=== PATIENT | male | born 1965 | race Caucasian/White ===

== ENCOUNTER 2020-04-06 12:56 | Emergency (ER) | payer OTHER ==
[~2020-04-06] VITALS: Ht 172.7 cm; Wt 108.9 kg
[~2020-04-06 12:56] MED LIST: BUME1TAB8 PO; SPIR25TA6 PO
[2020-04-06 13:05] VITALS: BP 121/70
--- NOTE | 2020-04-06 15:25 | NUR ---
SEEN AND EXAMINED BY .
--- NOTE | 2020-04-06 16:09 | NUR ---
Patient discharged to home in stable condition. Written and verbal after care instructions given. Patient verbalizes understanding of instruction.
== END 2020-04-06 16:10 | disposition home or self-care (01) ==
LOC: ER 12:59
DX: N48.89 Other specified disorders of penis (principal); G89.29 Other chronic pain; I10 Essential (primary) hypertension; E11.9 Type 2 diabetes mellitus without complications; I25.10 Atherosclerotic heart disease of native coronary artery without angina pectoris; Z86.19 Personal history of other infectious and parasitic diseases; Z98.890 Other specified postprocedural states; Z79.899 Other long term (current) drug therapy

== ENCOUNTER 2020-11-20 13:35 | Inpatient (IN) | payer OTHER ==
[~2020-11-20] VITALS: Ht 170.2 cm; Wt 98.4 kg
--- NOTE | 2020-11-20 13:45 | NUR ---
TO ER BED 3, C/O RU ABD PAIN, PER RA STARTED SINCE JULY BUT WORSE YESTERDAY, AWAITING MD VILLATORO.
--- NOTE | 2020-11-20 13:46 | NUR ---
TRIED PUTTING IV BUT UNSUCCESSFUL, CALLED FOR MIDLINE
--- NOTE | 2020-11-20 13:50 | NUR ---
UNABLE TO GIVE URINE AT THIS TIME
--- NOTE | 2020-11-20 13:50 | NUR ---
REFUSED BLOOD DRAW FROM LAB
[2020-11-20] MEDS ORDERED: MORPHINE SULFATE INJ 4 MG/ML DISP.SYRIN ONE (15:27)
[2020-11-20] MEDS ORDERED: ONDANSETRON HCL/PF 4 MG/2 ML VIAL ONE (15:27)
[2020-11-20] MEDS ORDERED: MORPHINE SULFATE INJ 2 MG/ML DISP.SYRIN IV ONE (15:30)
[2020-11-20] MEDS ORDERED: ONDANSETRON HCL/PF 4 MG/2 ML VIAL IVP ONE (15:30)
--- NOTE | 2020-11-20 16:07 | NUR ---
CALLED LAB SPOKE TO NATALIA TO SHANK MAKER BLOOD
--- NOTE | 2020-11-20 16:19 | NUR ---
PATIENT TRANSPORTED FOR CT ABD VIA GURNEY, PATIENT REMAINS IN STABLE CONDITION AT THIS TIME.
--- NOTE | 2020-11-20 16:20 | NUR ---
Akbar patel in [facility] - 11/20/20 at [address]
[2020-11-20 16:33] LABS: BASOPHILS # (AUTO) 0.1 K/uL (0.0-0.2); BASOPHILS % (AUTO) 0.3 % (0.0-2.0); CALCIUM, SERUM 8.7 mg/dL (8.5-10.1); CREATININE 1.1 mg/dL (0.6-1.3); EOSINOPHILS % (AUTO) 0.1 % (0.0-6.0); HEMATOCRIT 27 % (39-51); HEMOGLOBIN 9.2 g/dL (13.5-17.5); LYMPHOCYTES % (AUTO) 4.3 % (20.0-44.0); MEAN CORPUSCULAR HGB CONC 35 g/dl (31.0-36.0); MEAN CORPUSCULAR VOLUME 113 fL (80-96); MONOCYTES % (AUTO) 12.8 % (2.0-12.0); NEUTROPHILS # (AUTO) 19.4 K/uL (1.8-8.9); NEUTROPHILS % (AUTO) 82.5 % (43.0-81.0); POTASSIUM 4.9 mmol/L (3.5-5.1); RED BLOOD CELL COUNT(AUTO) 2.34 MIL/uL (4.5-6.0); WHITE BLOOD COUNT (AUTO) 23.4 K/uL (4.3-11.0)
[2020-11-20 16:38] LABS: ALBUMIN 2.6 g/dL (3.4-5.0); BILIRUBIN,DIRECT 4.9 mg/dL (0.0-0.2); BILIRUBIN,TOTAL 13.3 mg/dL (0.2-1.0)
--- NOTE | 2020-11-20 16:46 | NUR ---
BACK FROM CT
[2020-11-20] MEDS ORDERED: CEFTRIAXONE 1GM BAG (ER ONLY) 50 ML IV ONE ×2 (17:07→17:30)
[2020-11-20] MEDS ORDERED: OXYC10TA49 PO (17:30)
[2020-11-20] MEDS ORDERED: TRAM50TA2 PO (17:30)
[2020-11-20 17:34] LABS: BILIRUBIN,URINE MODERATE (NEGATIVE); COLOR,URINE DARK YELLOW (YELLOW); LEUKOCYTE ESTERASE ,URINE Negative (NEGATIVE); NITRITE, URINE Negative (NEGATIVE); PROTEIN,URINE Negative (NEGATIVE); UGLUCOSE Negative (NEGATIVE)
[2020-11-20] MEDS ORDERED: SPIR25TA6 PO (17:37)
[2020-11-20] MEDS ORDERED: NA P133E RC (17:37)
[2020-11-20] MEDS ORDERED: LACT10SO3 PO (17:37)
[2020-11-20] MEDS ORDERED: FURO-144 PO (17:37)
[2020-11-20] MEDS ORDERED: ASCO500C17 PO (17:37)
[2020-11-20] MEDS ORDERED: MULT-188 PO (17:37)
[2020-11-20] MEDS ORDERED: ONDA4TAB11 PO (17:37)
[2020-11-20] MEDS ORDERED: RIFA550T PO (17:37)
[2020-11-20] MEDS ORDERED: MELA5TAB PO (17:37)
[2020-11-20] MEDS ORDERED: ACET325T53 PO (17:37)
[2020-11-20] MEDS ORDERED: MAGN400O6 PO (17:37)
[2020-11-20] MEDS ORDERED: OMEP40CA21 PO (17:37)
[2020-11-20 17:43] LABS: BACTERIA,URINE Rare /HPF (None Seen); RBC,URINE NONE SEEN /HPF (0-2); SQUAMOUS EPITHELIAL CELL,UR Few /HPF (None Seen); WBC,URINE NONE SEEN /HPF (0-3)
[2020-11-20 17:50] LABS: BAND % (MANUAL) 1 % (0.0-5.0); EOSINOPHILS % (MANUAL) 1 % (0-4); LYMPHOCYTES % (MANUAL) 4 % (16-48); MONOCYTES % (MANUAL) 4 % (0-11.0); NEUTROPHILS % (MANUAL) 90 (42-76)
[2020-11-20 17:52] LABS: PLATELET COUNT (AUTO) 218 K/uL (150-450)
--- NOTE | 2020-11-20 18:45 | NUR ---
Dr Suresh at for re-eval.
--- NOTE | 2020-11-20 19:20 | NUR ---
REPORT GIVEN TO JULIO DAWSON
[2020-11-20] MEDS ORDERED: MAGNESIUM HYDROXIDE 30 ML UDC PO PRN (20:00)
[2020-11-20] MEDS ORDERED: MAG HYDROX/AL HYDROX/SIMETH 30 ML UDC PO PRN (20:00)
[2020-11-20] MEDS ORDERED: ONDANSETRON HCL/PF 4 MG/2 ML VIAL IVP PRN (20:00)
[2020-11-20] MEDS ORDERED: ACETAMINOPHEN 325 MG TABLET PO PRN (20:00)
[2020-11-20] MEDS ORDERED: Z GUARD REMEDY 2 OZ OINT TP PRN (20:00)
--- NOTE | 2020-11-20 20:09 | NUR ---
PT REFUSED THE US EXAM UNLESS HE GETS PAIN MEDS. RN AND DR. MCKENZIE INFORMED. PER DR. MCKENZIE EXAM CAN BE DONE AFTER PT IS ADMITTED TO THE FLOOR.
--- NOTE | 2020-11-20 21:51 | NUR ---
gave report to itz Duggan for nadya
[2020-11-20 22:00] VITALS: BP 133/79
[2020-11-20] MEDS: MORPHINE SULFATE INJ 2 MG/ML DISP.SYRIN IV PRN (22:08)
--- NOTE | 2020-11-20 22:10 | NUR ---
RN NOTE PT ADMITTED FROM ER WITH DIAGNOSIS OF CHOLECYSTITIS. PT ALERT ORIENTED X4. AMBULATORY. SCREAMING/CUSSING FOR SEVERE PAIN ON RIGHT UPPER ABDOMEN, ALSO COMPLAINED OF SHORTNESS OF BREATH DUE TO PAIN. NO DISTRESS NOTED. O2 GIVEN AT 2L.. MORPHINE IV GIVEN ORDERED. PT EASILY GET IRRITATED, LIMITED HISTORY GIVEN DUE TO PAIN. KEPT COMFORTABLE PTS WELLNESS. NOTED WITH BILATERAL LOWER EXTREMITY EDEMA. ORIENTED TO BED OPERATION AND CALL LIGHT. ALL SAFETY MEASURES IN PLACE. WILL CONTINUE TO MONITOR.
[2020-11-20 22:15] VITALS: BP 133/79
[2020-11-20] MEDS: FUROSEMIDE 40 MG/4 ML VIAL IV SCH (23:10)
[2020-11-20] MEDS ORDERED: PIPERACILLIN /TAZOBACTAM 3.375 G VIAL IV ONE (23:57)
[2020-11-21] MEDS: ZOSYN IVPB 3.375 G in IV D5W 50ml IV SCH ×2 (00:09→05:44)
--- NOTE | 2020-11-21 01:27 | NUR ---
RN NOTES PT SLEEPING, APPEARS TO BE COMFORTABLE. ALL DUE MEDS WERE GIVEN ORDERED.
[2020-11-21] MEDS: MORPHINE SULFATE INJ 2 MG/ML DISP.SYRIN IV PRN ×6 (02:19→23:45)
[2020-11-21 04:00] VITALS: BP_SYST 100; BP_SYST 122; BP_DIAS 60; BP_DIAS 64
[2020-11-21] MEDS ORDERED: PIPERACILLIN /TAZOBACTAM 3.375 G VIAL IV ONE (05:26)
[2020-11-21 06:21] VITALS: BP 122/64
--- NOTE | 2020-11-21 07:00 | NUR ---
RN NOTE PT REMAIN IN BED, ABLE TO MAKE NEEDS KNOWN. ON CONSTANT PAIN. MORPHINE GIVEN NEEDED. PER PT MORPHINE HELPS EASE THE PAIN. NO DISTRESS NOTED. PT DENIES SOB NOW, PT REMOVED OXYGEN, ON ROOM AIR NOW SATING AT 96 %. PT CONTINENT ABLE TO USE URINAL. WILL ENDORSE NEXT SHIFT NURSE FOR LOKESH.
--- NOTE | 2020-11-21 07:15 | NUR ---
RN OPENING NOTES RECEIVED PT IN BED AWAKE, A/O X4. STABLE ON ROOM AIR. NO SOB OR ANY S/S OF RESPIRATORY DISTRESS NOTED. NO PAIN REPORTED AT THIS TIME. ON CLEAR LIQUID DIET. IV ACCESS INTACT, PATENT AND FLUSHED. AMBULATORY. SKIN IS INTACT. SAFETY MEASURES IN PLACE. CALL LIGHT WITHIN REACH. BED LOCKED AND IN LOWEST POSITION WITH SIDE RAILS UP X2. WILL CONTINUE TO MONITOR.
[2020-11-21] MEDS: PANTOPRAZOLE 40 MG VIAL IV SCH (09:25)
[2020-11-21] MEDS: FUROSEMIDE 40 MG/4 ML VIAL IV SCH (09:25)
[2020-11-21] MEDS: RIFAXIMIN 550 MG TABLET PO SCH (09:26)
[2020-11-21] MEDS: LACTULOSE 10 G/15 ML UDC (PYXIS) PO SCH ×3 (09:26→16:42)
[2020-11-21] MEDS: SPIRONOLACTONE 25 MG TABLET PO SCH (09:26)
[2020-11-21 11:40] LABS: BASOPHILS # (AUTO) 0.2 K/uL (0.0-0.2); BASOPHILS % (AUTO) 0.8 % (0.0-2.0); HEMATOCRIT 25 % (39-51); HEMOGLOBIN 8.7 g/dL (13.5-17.5); LYMPHOCYTES % (AUTO) 3.7 % (20.0-44.0); MEAN CORPUSCULAR HGB CONC 35 g/dl (31.0-36.0); MEAN CORPUSCULAR VOLUME 114 fL (80-96); MONOCYTES % (AUTO) 11.4 % (2.0-12.0); NEUTROPHILS # (AUTO) 22.4 K/uL (1.8-8.9); NEUTROPHILS % (AUTO) 84.1 % (43.0-81.0); PLATELET COUNT (AUTO) 179 K/uL (150-450); RED BLOOD CELL COUNT(AUTO) 2.22 MIL/uL (4.5-6.0); WHITE BLOOD COUNT (AUTO) 26.7 K/uL (4.3-11.0)
[2020-11-21 11:58] LABS: ALBUMIN 2.5 g/dL (3.4-5.0); BILIRUBIN,DIRECT 6.4 mg/dL (0.0-0.2); BILIRUBIN,TOTAL 13.4 mg/dL (0.2-1.0); CALCIUM, SERUM 8.6 mg/dL (8.5-10.1); CREATININE 1.6 mg/dL (0.6-1.3); MAGNESIUM 2.2 mg/dL (1.8-2.4); PHOSPHORUS 4.3 mg/dL (2.5-4.9); TOTAL PROTEIN, SERUM 7.4 g/dL (6.4-8.2)
[2020-11-21 12:00] VITALS: BP 131/82
--- NOTE | 2020-11-21 14:20 | NUR ---
PER RN ELLA PATIENT REFUSED TO SIGN CONSENT AT THIS TIME. ALSO INR IS ELEVATED TO PERFORM PARACENTESIS AT THIS TIME. TECH WILL FOLLOW UP TOMORROW 11/22/20
[2020-11-21] MEDS: PIPERACILLIN /TAZOBACTAM 3.375 G in IV D5W 100 ML IV SCH ×2 (15:30→21:03)
--- NOTE | 2020-11-21 16:07 | NUR ---
PT REFUSED AN ECHOCARDIOGRAM. INFORMED ATTENDING RN.
--- NOTE | 2020-11-21 19:02 | NUR ---
RN CLOSING NOTES PATIENT RESTING IN BED. NO SIGNIFICANT CHANGES THROUGHOUT THE SHIFT. STABLE ON ROOM AIR. NO SOB OR ANY S/S OF ACUTE DISTRESS NOTED. LACTULOSE REFUSED DESPITE EDUCATION X3. REFUSED PARACENTESIS, VERBALIZED MIGHT DO IT TOMORROW INSTEAD. KEPT CLEAN AND COMFORTABLE. SAFETY MEASURES IN PLACE. CALL LIGHT WITHIN REACH. WILL ENDORSE TO NIGHT NURSE FOR LOKESH.
[2020-11-21 20:00] VITALS: BP 115/70
--- NOTE | 2020-11-21 21:00 | NUR ---
RN NOTE. INITIAL ASSESSMENT. RECEIVED THE PT REST ON THE BED. AWAKE, ALERT. ROOM AIR. SAT 88%. OXYGEN 2L N/C PLACED. IV LT HAND SALINE LOCK. ABDOMEN DISTENDED. HOB ELEVATED. WILL CONTINUE TO MONITOR VITALS.
[2020-11-22] VITALS: BP 105/55
[2020-11-22] MEDS: PIPERACILLIN /TAZOBACTAM 3.375 G in IV D5W 100 ML IV SCH ×3 (03:48→20:44)
[2020-11-22] MEDS: MORPHINE SULFATE INJ 2 MG/ML DISP.SYRIN IV PRN ×2 (03:48→07:55)
[2020-11-22 04:00] VITALS: BP 115/62
--- NOTE | 2020-11-22 07:10 | NUR ---
RN OPENING NOTE RECEIVED REPORT FROM PM NURSE.PATIENT IN CHAIR.AXOX4.MILD SOB NO DISTRESS NOTED.ON PRN O2 FOR DISCOMFORT.THORACENTESIS AND PARACENTESIS ON HOLD BECAUSE OF ELEVATED INR LEVEL.IV LAC IS PATENT AND INTACT.ABDOMEN IS DISTENDED.JAUNDICE PRESENT.BLE PITTING EDEMA .BRP STAND BY ASSIST.SAFETY ,[id number] IN PLACE.BED IS LOW AND IN LOCKED POSITION.CHANDRIKA LIGHT IN REACH.BED ALARM IS ON.SRX3.NPO FOR PROCEDURE.WILL CONTINUE TO MONITOR.
[2020-11-22 08:00] VITALS: BP 117/67
[2020-11-22] MEDS: SPIRONOLACTONE 25 MG TABLET PO SCH (09:15)
[2020-11-22] MEDS: LACTULOSE 10 G/15 ML UDC (PYXIS) PO SCH ×3 (09:15→16:51)
[2020-11-22] MEDS: RIFAXIMIN 550 MG TABLET PO SCH (09:15)
[2020-11-22] MEDS: PANTOPRAZOLE 40 MG VIAL IV SCH (09:15)
[2020-11-22] MEDS ORDERED: PHYTONADIONE INJ 10 MG/1 ML AMPUL SQ ONE (09:30)
[2020-11-22] MEDS ORDERED: PHYTONADIONE 5 MG TABLET PO ONE (09:30)
[2020-11-22] MEDS: IV NS 0.9% 1,000 ML IV PRN (09:43)
[2020-11-22] MEDS: HYDROMORPHONE INJ 2 MG/ML DISP.SYRIN IV PRN ×4 (09:43→22:14)
--- NOTE | 2020-11-22 10:00 | NUR ---
RN NOTE RECEIVED CALL FROM ULTRASOUND ,SPOKE TO NICOLAS ,REQUESTED UPDATED INR, MADE AWARE.RECEIVED NEW ORDERS ,PLACED NEW INR ORDER FOR TOMORROW AFTER GIVE ORDERED MED TODAY.LEFT MESSAGE TO NICOLAS.PATIENT C/O PAIN EVEN AFTER MORPHINE .RECEIVED NEW ORDER FOR DILAUDID PRN.PATIENT SIGNED CONSENT FOR ALL PROCEDURES.KIERRA CRANE SPOKE TO INSPERSION ANSWERED ALL QUESTIONS.NO HIDA SCAN ON WEEKENDS.WILL BE DONE TUESDAY.D/C NPO.WILL CONTINUE TO MONITOR.
--- NOTE | 2020-11-22 11:41 | NUR ---
RN NOTE UNABLE TO DRAW BLOOD FOR LAB,TRIED MORE THAN 2 TIMES. MADE AWARE.GOT ORDER FOR MIDLINE.PREDATOR CONTROL TRAPPER FAITH MADE AWARE.
[2020-11-22 12:00] VITALS: BP 130/72
[2020-11-22 16:00] VITALS: BP 118/66
[2020-11-22 16:05] LABS: BASOPHILS # (AUTO) 0.1 K/uL (0.0-0.2); BASOPHILS % (AUTO) 0.5 % (0.0-2.0); EOSINOPHILS % (AUTO) 0.4 % (0.0-6.0); HEMATOCRIT 24 % (39-51); HEMOGLOBIN 8.2 g/dL (13.5-17.5); LYMPHOCYTES # (AUTO) 1.1 K/uL (0.8-4.8); LYMPHOCYTES % (AUTO) 4.6 % (20.0-44.0); MEAN CORPUSCULAR HGB CONC 34 g/dl (31.0-36.0); MEAN CORPUSCULAR VOLUME 114 fL (80-96); MONOCYTES # (AUTO) 4.3 K/uL (0.1-1.30); MONOCYTES % (AUTO) 18.6 % (2.0-12.0); NEUTROPHILS # (AUTO) 17.6 K/uL (1.8-8.9); NEUTROPHILS % (AUTO) 75.9 % (43.0-81.0); PLATELET COUNT (AUTO) 181 K/uL (150-450); WHITE BLOOD COUNT (AUTO) 23.1 K/uL (4.3-11.0)
[2020-11-22 16:22] LABS: CALCIUM, SERUM 8.5 mg/dL (8.5-10.1); CREATININE 1.9 mg/dL (0.6-1.3); POTASSIUM 4.5 mmol/L (3.5-5.1)
[2020-11-22 16:28] LABS: ALBUMIN 2.2 g/dL (3.4-5.0); BILIRUBIN,TOTAL 11.7 mg/dL (0.2-1.0); MAGNESIUM 2.3 mg/dL (1.8-2.4); TOTAL PROTEIN, SERUM 6.9 g/dL (6.4-8.2)
[2020-11-22 17:17] LABS: LYMPHOCYTES % (MANUAL) 11 % (16-48); MONOCYTES % (MANUAL) 10 % (0-11.0); NEUTROPHILS % (MANUAL) 79 (42-76)
--- NOTE | 2020-11-22 18:00 | NUR ---
RN NOTE THORACENTESIS AND PARACENTESIS WILL BE IN AM IF INR LEVEL NORMAL.HIDA SCAN WILL BE ON TUESDAY. MADE AWARE.LEFT MESSAGE TO SISTER PER PATIENT REQUEST TO BRING SAMPLE CARRIER FOR PHONE.AWAITING CALL BACK.
--- NOTE | 2020-11-22 18:17 | NUR ---
RN NOTE DILAUDID TAKEN HAS A BROKEN SYRINGE,MALFUNCTIONING,MEDICATION WASTED WITH RN RICH ESTRADA.NEW 2MG DOSE PULLED OUT GIVEN TO THE PATIENT.
--- NOTE | 2020-11-22 18:18 | NUR ---
RN NOTE DILAUDID GIVEN @1803 PM UNABLE TO SCAN AND SAVE SECOND TIME.REASSESSMENT@1833PM.
--- NOTE | 2020-11-22 18:41 | NUR ---
RN CLOSING NOTE PATIENT IN CHAIR .SITTING COMFORTABLY.NOT IN ANY DISTRESS.AXOX4.ALL NEEDS MET.WILL ENDORSE TO PM NURSE FOR LOKESH.
--- NOTE | 2020-11-22 19:40 | NUR ---
RN OPENING NOTE RECEIVED PATIENT SITTING IN CHAIR. AXOX4. BREATHING EVEN AND UNLABORED, NO SOB NOTED. THORACENTESIS AND PARACENTESIS ON HOLD BECAUSE OF ELEVATED INR LEVEL. (L) AC IV AND (R) UA MIDLINE BOTH PATENT AND INTACT, RUNNING NS 100ML/HR. ABDOMEN IS DISTENDED. JAUNDICE PRESENT. BLE PITTING EDEMA .BRP STAND BY ASSIST .SAFETY ,MEASURES IN PLACE .BED IS LOW AND IN LOCKED POSITION. CALL LIGHT IN REACH. BED ALARM IS ON. SRX3. STRICT I&O IN PLACE PER MD ORDERS. NPO AFTER MIDNIGHT FOR PROCEDURE. NO ACUTE DISTRESS NOTED AT THIS TIME.
[2020-11-22 20:00] VITALS: BP 114/74
[2020-11-23] MEDS: HYDROMORPHONE INJ 2 MG/ML DISP.SYRIN IV PRN ×4 (02:20→18:35)
[2020-11-23] MEDS: IV NS 0.9% 1,000 ML IV PRN (02:43)
[2020-11-23 04:00] VITALS: BP 106/80
[2020-11-23] MEDS: PIPERACILLIN /TAZOBACTAM 3.375 G in IV D5W 100 ML IV SCH ×3 (04:20→20:47)
--- NOTE | 2020-11-23 06:37 | NUR ---
RN CLOSING NOTE PATIENT IN BED, RESTING COMFORTABLY. ON ROOM AIR, NO SOB OR RESP. DISTRESS NOTED. O2 SATURATIONS ABOVE 96%. AXOX4. ALL NEEDS MET THROUGHOUT SHIFT. ENCOURAGED AMBULATION , BRP WITH STEADY GAIT. STRICT I&O PER MD ORDERS, 180 ML URINE AND X1 BM LIQUID AND SOFT. PRN DOSES OF PAIN MEDICATION ADMIN THROUGH SHIFT AND RE-ASSESSMENTS COMPLETED. (L) AC #20 AND (R) UA MIDLINE BOTH PATENT AND FLUSHING WELL. BOTH THORACENTESIS AND PARACENTESIS ON HOLD AWAITING INR RESULTS. NPO AFTER MIDNIGHT. NO ACUTE DISTRESS NOTED AT THIS TIME. WILL ENDORSE CONTINUITY OF CARE TO MORNING SHIFT RN.
[2020-11-23] MEDS: PANTOPRAZOLE 40 MG TABLET.DR PO SCH ×2 (07:30→12:27)
--- NOTE | 2020-11-23 10:35 | NUR ---
PAIN MED Patient was given dilaudid 2 mg via iv for pain of 8/10 AT 10:30 am.
[2020-11-23 11:39] LABS: HEMOGLOBIN 8.6 g/dL (13.5-17.5); MEAN CORPUSCULAR HGB CONC 34 g/dl (31.0-36.0); WHITE BLOOD COUNT (AUTO) 22.1 K/uL (4.3-11.0)
[2020-11-23 11:49] LABS: EOSINOPHILS % (AUTO) 0.2 % (0.0-6.0); HEMATOCRIT 25 % (39-51); LYMPHOCYTES % (AUTO) 4.6 % (20.0-44.0); MEAN CORPUSCULAR VOLUME 115 fL (80-96); MONOCYTES # (AUTO) 4.4 K/uL (0.1-1.30); MONOCYTES % (AUTO) 19.9 % (2.0-12.0); NEUTROPHILS # (AUTO) 16.7 K/uL (1.8-8.9); NEUTROPHILS % (AUTO) 75.3 % (43.0-81.0); PLATELET COUNT (AUTO) 196 K/uL (150-450); RED BLOOD CELL COUNT(AUTO) 2.19 MIL/uL (4.5-6.0)
[2020-11-23 12:00] VITALS: BP 110/78
[2020-11-23 12:19] LABS: ALBUMIN 2.4 g/dL (3.4-5.0); BILIRUBIN,DIRECT 6.9 mg/dL (0.0-0.2); BILIRUBIN,TOTAL 11.8 mg/dL (0.2-1.0); CALCIUM, SERUM 8.5 mg/dL (8.5-10.1); CREATININE 2.4 mg/dL (0.6-1.3); MAGNESIUM 2.3 mg/dL (1.8-2.4); POTASSIUM 4.6 mmol/L (3.5-5.1); TOTAL PROTEIN, SERUM 7.2 g/dL (6.4-8.2)
[2020-11-23] MEDS: RIFAXIMIN 550 MG TABLET PO SCH (12:26)
[2020-11-23] MEDS: LACTULOSE 10 G/15 ML UDC (PYXIS) PO SCH ×3 (12:26→17:10)
[2020-11-23] MEDS: SPIRONOLACTONE 25 MG TABLET PO SCH (12:26)
--- NOTE | 2020-11-23 13:00 | NUR ---
INR RESULTS TOO HIGH FOR PARACENTESIS. MD LOZADA AWARE. ORDERED FOR BENJY K BUT CHANGED TO FFP PER DR HEATON'S RECOMMENDATIONS.
[2020-11-23] MEDS ORDERED: PHYTONADIONE 5 MG TABLET PO ONE ×2 (13:30)
--- NOTE | 2020-11-23 13:38 | NUR ---
11/22 INR HIGH, at 8:35 spoke to EUNICE HOYOS. SHE WILL CONTACT ORDERING MD AND DO ANOTHER BLOOD DRAW LATER. @12:01 NEW LABS NOT AVAILABLE. PER EUNICE HOYOS BLOOD DRAW WILL BE DONE ON THURSDAY 11/23. 11/23 @10:00 INR UNCHANGED. CONTACTED RN KEVIN. PER RN LABS PENDING. 12: NEW LABS INDICATE INR HIGH. RN CONTACTS MD. PER RN ANOTHER BLOOD DRAW WILL BE DONE TOMORROW MORNING.
[2020-11-23 13:48] LABS: BAND % (MANUAL) 1 % (0.0-5.0); LYMPHOCYTES % (MANUAL) 6 % (16-48); METAMYELOCYTES % 1 % (0-0); MONOCYTES % (MANUAL) 18 % (0-11.0); NEUTROPHILS % (MANUAL) 74 (42-76)
--- NOTE | 2020-11-23 14:04 | NUR ---
PARCENTESIS WAS CANCELLED ACCIDENTALLY BY ANDREW. A NEW ORDER WAS PLACED RIGHT AFTER
--- NOTE | 2020-11-23 14:31 | NUR ---
dilaudid given at 1430 for pain
[2020-11-23] MEDS: ALBUMIN 25% 25 GM in PREMIX 1 EA IV SCH ×2 (14:41→21:46)
[2020-11-23 15:28] VITALS: BP 110/78
--- NOTE | 2020-11-23 19:10 | NUR ---
RN CLOSING NOTES Patient is alert and oriented. Breathing even and unlabored. Right upoer arm midline noted with saline lock.Patient provided pain medication prior to shift change. endorsed to next shift to follow up. Endorsement provided regarding following up with lab and radiology for the FFP in am. Nurse to coordinate plasma and radiology for administration of FFP one hour prior to paracentesis.
--- NOTE | 2020-11-23 19:18 | NUR ---
ENDORSEMENT DONE FOR PATIENT TO BE NPO AFTER MIDNIGHT FOR HIDA SCAN IN AM
--- NOTE | 2020-11-23 19:45 | NUR ---
RN OPENING NOTE RECEIVED PATIENT SITTING IN CHAIR. AXOX4. BREATHING EVEN AND UNLABORED, NO SOB NOTED. THORACENTESIS AND PARACENTESIS ON HOLD BECAUSE OF ELEVATED INR LEVEL COMPLAINS OF PAIN 8/10 IN ANTERIOR AND ANTISQUEAK APPLIER ABDOMEN. BOTH TO BE COMPLETED TOMORROW AND FFP TO BE GIVEN ONE HOUR BEFORE PROCEDURE PER DR. HEATON. (L) AC IV AND (R) UA MIDLINE BOTH PATENT AND INTACT, ABDOMEN IS DISTENDED, AND +3 (B) EDEMA IN LOWER EXTREMITIES. JAUNDICE PRESENT. BRP STAND BY ASSIST. SAFETY MEASURES IN PLACE. BED IS LOW AND IN LOCKED POSITION. CALL LIGHT WITHIN REACH. SRX3. STRICT I&O IN PLACE PER MD ORDERS. NPO AFTER MIDNIGHT FOR PROCEDURE. NO ACUTE DISTRESS NOTED AT THIS TIME.
[2020-11-23 20:00] VITALS: BP 115/72
[2020-11-23] MEDS ORDERED: HYDROMORPHONE 1 MG/1 ML DISP.SYRIN IV ONE (21:30)
--- NOTE | 2020-11-23 21:30 | NUR ---
RN NOTE PT. VERBALIZES PAIN 9/10 UNRELIEVED BY DILAUDID GIVEN AT 1830 BY MORNING SHIFT RN. IN VISUAL DISTRESS, MOANING, GRIMACING AND RESTLESS. BIG DATA LEAD MD NOTIFIED AND DILAUDID 1MG X1 IVP ORDERED.
[2020-11-24] MEDS: HYDROMORPHONE INJ 2 MG/ML DISP.SYRIN IV PRN ×6 (01:02→23:53)
[2020-11-24] MEDS ORDERED: FUROSEMIDE 40 MG/4 ML VIAL IV STA (03:30)
--- NOTE | 2020-11-24 03:30 | NUR ---
RN NOTE PT. VISUALIZED TO BE IN RESP. DISTRESS. O2 SATURATIONS OF 85-89% ON ROOM AIR WITH AUDIBLE WEAZING. PLANTING SUPERVISOR MD NOTIFIED AND LASIX 40 MG IVP X1 ORDERED. NOW ON 5L O2 NC WITH HUMIDIFIER WITH O2 SATURATIONS IN 94-96%. CHARGE NURSE AWARE.
[2020-11-24] MEDS: PIPERACILLIN /TAZOBACTAM 3.375 G in IV D5W 100 ML IV SCH ×3 (03:35→19:58)
[2020-11-24 04:00] VITALS: BP 110/65
[2020-11-24] MEDS: ALBUMIN 25% 25 GM in PREMIX 1 EA IV SCH (04:50)
[2020-11-24 06:16] LABS: BASOPHILS % (AUTO) 0.2 % (0.0-2.0); EOSINOPHILS % (AUTO) 0.1 % (0.0-6.0); HEMATOCRIT 24 % (39-51); HEMOGLOBIN 8.3 g/dL (13.5-17.5); LYMPHOCYTES # (AUTO) 0.9 K/uL (0.8-4.8); LYMPHOCYTES % (AUTO) 4.8 % (20.0-44.0); MEAN CORPUSCULAR HGB CONC 35 g/dl (31.0-36.0); MEAN CORPUSCULAR VOLUME 114 fL (80-96); MONOCYTES # (AUTO) 4.1 K/uL (0.1-1.30); MONOCYTES % (AUTO) 20.9 % (2.0-12.0); NEUTROPHILS # (AUTO) 14.7 K/uL (1.8-8.9); PLATELET COUNT (AUTO) 178 K/uL (150-450); RED BLOOD CELL COUNT(AUTO) 2.11 MIL/uL (4.5-6.0); WHITE BLOOD COUNT (AUTO) 19.8 K/uL (4.3-11.0)
[2020-11-24 06:23] LABS: CALCIUM, SERUM 8.6 mg/dL (8.5-10.1); MAGNESIUM 2.5 mg/dL (1.8-2.4); PHOSPHORUS 5.7 mg/dL (2.5-4.9); POTASSIUM 4.5 mmol/L (3.5-5.1)
--- NOTE | 2020-11-24 06:44 | NUR ---
RN CLOSING NOTE PATIENT SITTING IN BED. AXOX4. ON 5L O2 VIA NC WITH HUMIDIFIER, O2 SATURATIONS ABOVE 95%. IVP LASIX 40 MG ADMIN X1 DUE TO AUDIBLE WEAZING AND SOB NOTED; NEUROLOGY TEACHER MD AND CHARGE NURSE AWARE. THORACENTESIS AND PARACENTESIS TO OCCUR THIS MORNING ONCE 1 UNIT OF FFP HAS BEEN ADMIN ONE HOUR BEFORE PROCEDURE PER DR. HEATON., STILL AWAITING TIME OF PROCEDURE IN ORDER TO ADMIN FFP IN TIMELY MANNER. COMPLAINS OF PAIN IN ANTERIOR AND BOBBIN DUMPER ABDOMEN TREATED WITH DILAUDID PRN DOSES. (L) AC IV AND (R) UA MIDLINE BOTH PATENT AND INTACT, ABDOMEN IS DISTENDED, AND +3 (B) EDEMA IN LOWER EXTREMITIES. JAUNDICE PRESENT. BRP STAND BY ASSIST. SAFETY MEASURES IN PLACE. BED IS LOW AND IN LOCKED POSITION. CALL LIGHT WITHIN REACH. SRX3. STRICT I&O IN PLACE PER MD ORDERS: NO BM DURING SHIFT AND 200 ML OF URINE NOTED. NPO AFTER MIDNIGHT FOR PROCEDURE. NO ACUTE DISTRESS NOTED AT THIS TIME. WILL ENDORSE CONTINUITY OF CARE TO MORNING SHIFT RN
[2020-11-24] MEDS: PANTOPRAZOLE 40 MG TABLET.DR PO SCH (07:30)
--- NOTE | 2020-11-24 07:30 | NUR ---
Patient alert and oriented x 4 with periods of restlessness, he is on 5 liters of 02 via NC-satting at 93-94%. Bilateral lower leg edema +3. Right arm IV line patent with clean dressing. Patient is schedule for para/thora centesis, FFP plasma and HIDA scan. Safety precautions in place, bed locked in lowest position, side rails up x 3, call light within reach.
[2020-11-24 08:00] VITALS: BP_SYST 132; BP_SYST 144; BP_DIAS 90; BP_DIAS 95
[2020-11-24 08:29] LABS: LYMPHOCYTES % (MANUAL) 4 % (16-48); MONOCYTES % (MANUAL) 21 % (0-11.0); NEUTROPHILS % (MANUAL) 75 (42-76)
[2020-11-24] MEDS: SPIRONOLACTONE 25 MG TABLET PO SCH (09:00)
[2020-11-24] MEDS: LACTULOSE 10 G/15 ML UDC (PYXIS) PO SCH ×4 (09:00→17:00)
[2020-11-24] MEDS: RIFAXIMIN 550 MG TABLET PO SCH (09:00)
--- NOTE | 2020-11-24 09:30 | NUR ---
RN NOTES MEDICATIONS NOT GIVEN DUE TO PROCEDURES AND HIDA SCAN TODAY
[2020-11-24 12:17] LABS: ALBUMIN 2.7 g/dL (3.4-5.0); BILIRUBIN,TOTAL 11.3 mg/dL (0.2-1.0); TOTAL PROTEIN, SERUM 7.2 g/dL (6.4-8.2)
[2020-11-24 13:32] LABS: BILIRUBIN,DIRECT 6.8 mg/dL (0.0-0.2)
--- NOTE | 2020-11-24 13:52 | NUR ---
RN NOTES S/P PARACENTESIS. 1050 ML OUTPUT TAKEN. PER JONNATHAN GRIFFITH, WILL DO THORACENTESIS TOMORROW.
[2020-11-24 15:30] VITALS: BP 148/90
--- NOTE | 2020-11-24 19:05 | NUR ---
RN NOTES PATIENT FOR THORACENTESIS TOMORROW. CONSENT SIGNED. GIVE 1 UNIT FFP 1 HOUR PRIOR TO PROCEDURE. COORDINATE WITH ULTRASOUND.
--- NOTE | 2020-11-24 19:11 | NUR ---
RN CLOSING NOTES Patient is alert and oriented x 4, he is on 5 liters of 02 97-98% room air, periods of room air when out of to scan of 92-93%. Right arm IV line patent with no s/sx of infiltration. Edema present on BLE +3, elevated with pillows when in bed. NPO status throughout the shift. S/P Paracentesis 1050ml of output, well tolerated states relief after. HIDA scan done split sessions within few hours apart 1400 and 1830. Can resume diet after scan is complete. Dilaudid given PRN Q4 for complain of chronic pain with relief. On IV Abx with no adverse reaction. Patient to have Thoracentesis in AM, FFP 1 hour prior to procedure, communicated accordingly.
--- NOTE | 2020-11-24 19:30 | NUR ---
RN OPENING NOTE RECEIVED PT AWAKE IN BED. A/O X4. PT ON 5L O2 VIA NC, SATS 96%. NO SOB OR S/S OF RESPIRATORY DISTRESS NOTED. PT HAS NO C/O PAIN OR DISCOMFORT AT THIS TIME. IV ACCESS IN GEOFF MIDLINE, INTACT AND PATENT. SAFETY MEASURES MAINTAINED. BED IN LOWEST LOCKED POSITION, HOB ELEVATED, SIDE RAILS UP X2. CALL LIGHT AND TABLE WITHIN REACH. WILL CONTINUE WITH PLAN OF CARE.
--- NOTE | 2020-11-24 19:48 | NUR ---
RN NOTE PT C/O ACHING PAIN IN UPPER/LOWER ABDOMEN, RATED 9/10 ON PAIN SCALE. VSS. PER PT REQUEST, ADMINISTERED DILAUDID 2 MG IV Q4H PRN FOR PAIN. WILL CONTINUE TO MONITOR PT.
[2020-11-24 20:00] VITALS: BP 105/75
--- NOTE | 2020-11-24 21:00 | NUR ---
RN NOTE PT A/O X4. OFFERED LEMUS CATH INSERTION X3 AND STATED THAT HE "DID NOT WANT TO BE IN MORE PAIN AND HAVE A PANIC ATTACK." PT EDUCATION GIVEN ON RISKS AND BENEFITS. PT REFUSED LEMUS CATH INSERTION AND VERBALIZED UNDERSTANDING. DANIEL CHARGE NURSE AWARE. WILL CONTINUE TO MONITOR PT.
--- NOTE | 2020-11-24 23:53 | NUR ---
RN NOTE PT C/O ACHING PAIN IN UPPER/LOWER ABDOMEN, RATED 10/10 ON PAIN SCALE. VSS. PER PT REQUEST, ADMINISTERED DILAUDID 2 MG IV Q4H PRN FOR PAIN. WILL CONTINUE TO MONITOR PT.
[2020-11-25] MEDS: PIPERACILLIN /TAZOBACTAM 3.375 G in IV D5W 100 ML IV SCH ×3 (03:22→23:09)
[2020-11-25] MEDS: HYDROMORPHONE INJ 2 MG/ML DISP.SYRIN IV PRN ×4 (03:55→23:32)
[2020-11-25 04:00] VITALS: BP 129/44
--- NOTE | 2020-11-25 05:56 | NUR ---
SPOKE WITH RADIOLOGY AND WAS TOLD THAT PERSON PERFORMING THORACENTESIS WILL KNOW AT 0800 WHEN PROCEDURE WILL BE DONE. INFORMED LAB SINCE I UNIT FFP IS TO START 1 HR PRIOR TO THORACENTESIS.
--- NOTE | 2020-11-25 06:12 | NUR ---
RN CLOSING NOTE PT IS AWAKE IN BED. A/O X4. PT ON 5L O2 VIA NC, SATS 95%. NO SOB OR S/S OF RESPIRATORY DISTRESS NOTED. PT HAS NO C/O PAIN OR DISCOMFORT AT THIS TIME. IV ACCESS IN GEOFF MIDLINE, INTACT AND PATENT. ALL NEEDS HAVE BEEN MET. PAIN MANAGEMENT ADMINISTERED PER ORDER. SAFETY MEASURES MAINTAINED AT ALL TIMES. BED IN LOWEST LOCKED POSITION, HOB ELEVATED, SIDE RAILS UP X2. CALL LIGHT AND TABLE WITHIN REACH. WILL ENDORSE TO ONCOMING NURSE FOR LOKESH.
[2020-11-25 07:15] LABS: BASOPHILS # (AUTO) 0.1 K/uL (0.0-0.2); BASOPHILS % (AUTO) 0.4 % (0.0-2.0); EOSINOPHILS % (AUTO) 0.1 % (0.0-6.0); HEMATOCRIT 22 % (39-51); HEMOGLOBIN 7.7 g/dL (13.5-17.5); LYMPHOCYTES # (AUTO) 0.8 K/uL (0.8-4.8); LYMPHOCYTES % (AUTO) 4.4 % (20.0-44.0); MEAN CORPUSCULAR HGB CONC 35 g/dl (31.0-36.0); MEAN CORPUSCULAR VOLUME 116 fL (80-96); MONOCYTES # (AUTO) 3.9 K/uL (0.1-1.30); MONOCYTES % (AUTO) 20.2 % (2.0-12.0); NEUTROPHILS # (AUTO) 14.4 K/uL (1.8-8.9); NEUTROPHILS % (AUTO) 74.9 % (43.0-81.0); PLATELET COUNT (AUTO) 162 K/uL (150-450); WHITE BLOOD COUNT (AUTO) 19.2 K/uL (4.3-11.0)
[2020-11-25 07:30] LABS: RED BLOOD CELL COUNT(AUTO) 1.93 MIL/uL (4.5-6.0)
[2020-11-25] MEDS: PANTOPRAZOLE 40 MG TABLET.DR PO SCH (07:37)
--- NOTE | 2020-11-25 07:52 | NUR ---
RN OPENING NOTES RECEIVED PATIENT ON BED AWAKE ALERT AND ORIENTED X4. PATIENT IS ON 5 L OXYGEN VIA NASAL CANNULA SATURATING WELL. PATIENT HAVING RESPIRATORY DISTRESS NOTED, WAITING FOR PARACENTESIS PROCEDURE TO BE DONE TODAY. PATIENT COMPLAINED COMPLAINED OF PAIN RATED 9/10 NOTED AT THIS TIME. WILL CONTINUE TO MONITOR.
[2020-11-25 07:55] VITALS: BP 102/65
--- NOTE | 2020-11-25 08:00 | NUR ---
RN NOTE PLASMA TRANSFUSION WAS ADMINISTERED, VITAL SIGN TAKEN AND RECORDED. PATIENT WAS STABLE. WILL CONTINUE TO MONITOR.
[2020-11-25 08:07] LABS: *SPE A/G RATIO 0.6 (0.7-1.7); *SPE ALBUMIN 2.6 g/dL (2.9-4.4); *SPE ALPHA-1-GLOBULIN 0.2 g/dL (0.0-0.4); *SPE ALPHA-2-GLOBULIN 0.5 g/dL (0.4-1.0); *SPE BETA GLOBULIN 0.6 g/dL (0.7-1.3); *SPE GLOBULIN, TOTAL 4.1 g/dL (2.2-3.9); *SPE M-SPIKE Not Observed g/dL (Not Observed); *SPEGAMMA GLOBULIN 2.8 g/dL (0.4-1.8)
[2020-11-25 08:17] LABS: ALBUMIN 2.3 g/dL (3.4-5.0); BILIRUBIN,DIRECT 6.3 mg/dL (0.0-0.2); BILIRUBIN,TOTAL 10.6 mg/dL (0.2-1.0); CALCIUM, SERUM 7.9 mg/dL (8.5-10.1); CREATININE 3.8 mg/dL (0.6-1.3); POTASSIUM 4.6 mmol/L (3.5-5.1); TOTAL PROTEIN, SERUM 6.9 g/dL (6.4-8.2)
[2020-11-25] MEDS: LACTULOSE 10 G/15 ML UDC (PYXIS) PO SCH ×3 (08:20→16:26)
[2020-11-25] MEDS: RIFAXIMIN 550 MG TABLET PO SCH (08:21)
[2020-11-25] MEDS: FUROSEMIDE 40 MG/4 ML VIAL IV SCH ×2 (08:21→16:15)
[2020-11-25 08:30] VITALS: BP 110/70
[2020-11-25 10:44] LABS: EOSINOPHILS % (MANUAL) 1 % (0-4); LYMPHOCYTES % (MANUAL) 6 % (16-48); MONOCYTES % (MANUAL) 17 % (0-11.0); NEUTROPHILS % (MANUAL) 76 (42-76)
--- NOTE | 2020-11-25 13:25 | NUR ---
RN NOTES PATIENT REFUSED FOR LEMUS CATHETER INSERTION EXPLAINED THE RISK AND BENEFITS. LULI FLORENCE WAS AWARE. WILL CONTINUE TO MONITOR.
[2020-11-25 16:00] VITALS: BP 109/70
--- NOTE | 2020-11-25 19:06 | NUR ---
RN CLOSING NOTES PATIENT IS ON BED AWAKE ALERT AND ORIENTED X4. PATIENT IS ON 5 L OXYGEN VIA NASAL CANNULA, SATURATION 97% PATIENT IN NO APPARENT RESPIRATORY DISTRESS NOTED.NO COMPLAINED OF PAIN AT THIS TIME. SEEN AND EXAMINED BY MD WITH ORDERS MADE AND CARRIED OUT. ALL DUE MEDICATIONS WAS GIVEN. IV ACCESS AT LEFT AC # 20 AND RIGHT UPPER ARM PATENT AND INTACT. SAFETY PRECAUTION WAS IN PLACED. BED IN LOWEST POSITION AND LOCKED. CALL LIGHT WITHIN REACH. THORACENTESIS WAS DONE TODAY 1550 L OUTPUT AND SENT TO LAB FOR TEST. PATIENT STILL REFUSING FOR LEMUS CATHETER INSERTION. WILL ENDORSED TO BRAKE RELINER FOR LOKESH.
--- NOTE | 2020-11-25 19:20 | NUR ---
RN NOTE RECEIVED PATIENT IN BED RESTING ALERT ORIENTED X4 VERBALLY RESPONSIVE ON 5L OXYGEN VIA NASAL CANNULA,O2:96% IV SITE IS ON RIGHT UPPER ARM INTACT PATIENT,LEFT AC IV SITE IS INFILTRATED,PATIENT REFUSED TO REMOVE. AMBULATORY WITH ASSIST CONTINENT TO BOWEL/BLADDER SAFETY MEASURE IMPLEMENT,CALL LIGHT WITHIN REACH,CONTINUE TO MONITOR.
--- NOTE | 2020-11-25 20:00 | NUR ---
RN NOTE PATIENT HAS ORDER FOR LEMUS INSERTION PATIENT REFUSED TO HAVE IT,MD AWARE CONTINUE TO MONITOR.
[2020-11-25 22:00] VITALS: BP 102/64
--- NOTE | 2020-11-25 23:32 | NUR ---
RN NOTE DIALUDID 2MG PRN GIVEN FOR PAIN 12/09 CONTINUE TO MONITOR
[2020-11-26 06:08] LABS: EOSINOPHILS % (AUTO) 0.3 % (0.0-6.0); HEMATOCRIT 21 % (39-51); HEMOGLOBIN 7.2 g/dL (13.5-17.5); LYMPHOCYTES # (AUTO) 1.2 K/uL (0.8-4.8); LYMPHOCYTES % (AUTO) 7.2 % (20.0-44.0); MEAN CORPUSCULAR HGB CONC 35 g/dl (31.0-36.0); MEAN CORPUSCULAR VOLUME 114 fL (80-96); MONOCYTES # (AUTO) 3.1 K/uL (0.1-1.30); MONOCYTES % (AUTO) 18.3 % (2.0-12.0); NEUTROPHILS # (AUTO) 12.5 K/uL (1.8-8.9); NEUTROPHILS % (AUTO) 74.2 % (43.0-81.0); PLATELET COUNT (AUTO) 137 K/uL (150-450); WHITE BLOOD COUNT (AUTO) 16.8 K/uL (4.3-11.0)
--- NOTE | 2020-11-26 06:51 | NUR ---
RN NOTE PATIENT REMAINS ON ALERT ORIENTED X4 VERBALLY RESPONSIVE ON 5L OXYGEN O2:94%,NO SOB NOT ACUTE DISTRESS NOTED, IV SITE IS ON RIGHT UPPER ARM INTACT PATENT,PATIENT IS AMBULATORY,CONTINENT TO BOWEL/BLADDER HE HAS ORDER FOR LEMUS INSERTION HE REFUSED EXPLAINED RISKS AND BENEFITS STILL REFUSED,KEPT CLEAN AND DRY ALL THE TIME,KEPT COMFORTABLE,ALL DUE MEDS GIVEN MD ORDERED ENDORSE NEXT COMING SHIFT FOR CONTINUATION OF CARE.
[2020-11-26 07:37] LABS: RED BLOOD CELL COUNT(AUTO) 1.83 MIL/uL (4.5-6.0)
[2020-11-26] MEDS: HYDROMORPHONE INJ 2 MG/ML DISP.SYRIN IV PRN ×3 (07:44→19:29)
--- NOTE | 2020-11-26 07:52 | NUR ---
MS RN OPENING NOTE PATIENT IS IN BED RESTING. PATIENT IS SEEKING PAIN MEDICATION. PATIENT IS ON OXYGEN ON 5L ON NC. SATURATING 97%. PATIENT AMBULATORY WITH ASSISTANCE. SAFETY PRECAUTIONS ARE ON, BED IS LOCKED IN THE LOWEST POSITION WITH SIDE RAILS IP, CALL LIGHT WITHIN REACH, WILL CONTINUE TO MONITOR CLOSELY.
[2020-11-26] MEDS: PANTOPRAZOLE 40 MG TABLET.DR PO SCH (08:13)
[2020-11-26] MEDS: RIFAXIMIN 550 MG TABLET PO SCH (08:13)
[2020-11-26] MEDS: LACTULOSE 10 G/15 ML UDC (PYXIS) PO SCH ×3 (08:13→16:53)
--- NOTE | 2020-11-26 09:25 | NUR ---
MS RN NOTE PATIENT HAD A LEMUS CATHETER INSERTION, PATIENT TOLERATED PROCEDURE WELL.
[2020-11-26 09:44] LABS: CALCIUM, SERUM 8.1 mg/dL (8.5-10.1); CREATININE 4.4 mg/dL (0.6-1.3); POTASSIUM 4.5 mmol/L (3.5-5.1)
[2020-11-26 10:00] VITALS: BP 96/63
[2020-11-26 10:18] LABS: BILIRUBIN,DIRECT 1.9 mg/dL (0.0-0.2); BILIRUBIN,TOTAL 2.5 mg/dL (0.2-1.0); TOTAL PROTEIN, SERUM 7.1 g/dL (6.4-8.2)
[2020-11-26 10:35] LABS: ALBUMIN 1.3 g/dL (3.4-5.0)
[2020-11-26] MEDS: PIPERACILLIN /TAZOBACTAM 3.375 G in IV D5W 100 ML IV SCH ×2 (10:54→23:18)
[2020-11-26 11:07] LABS: LYMPHOCYTES % (MANUAL) 8 % (16-48); MONOCYTES % (MANUAL) 14 % (0-11.0); NEUTROPHILS % (MANUAL) 78 (42-76)
--- NOTE | 2020-11-26 18:52 | NUR ---
MS RN CLOSELY NOTE PATIENT IS IN BED RESTING. PATIENT IS SEEKING PAIN MEDICATION. PATIENT IS ON OXYGEN ON 5L ON NC. SATURATING 99%. PATIENT AMBULATORY WITH ASSISTANCE. SAFETY PRECAUTIONS ARE ON, BED IS LOCKED IN THE LOWEST POSITION WITH SIDE RAILS IP, CALL LIGHT WITHIN REACH, ENDORSE PATIENT TO PHOTOGEOLOGIST NURSE FOR LOKESH.
--- NOTE | 2020-11-26 19:30 | NUR ---
RN NOTE PT RECEIVED IN BED. PT IS ON 5L OF O2 VIA NC, SHOWING NO S/S OF RESPIRATORY DISTRESS. PT IS A&OX3-4. LEMUS CATH NOTED. PT IS AMBULATORY WITH ASSISTANCE AND SKIN IS INTACT. PT HAS RIGHT UPPER ARM MIDLINE, FLUSHED, PATENT, AND INTACT. ALL SAFETY MEASURES IMPLEMENTED. BED LOCKED AND IN LOWEST POSITION. BED ALARM ON. CALL LIGHT WITHIN REACH. WILL CONTINUE TO MONITOR THROUGHOUT THE SHIFT.
[2020-11-26 22:00] VITALS: BP 94/40
--- NOTE | 2020-11-27 00:05 | NUR ---
RN NOTE PATIENT COMPLAINING OF SEVERE PAIN /. PT HAS ORDER FOR DILAUDID 2MG/ML IVP. PT HAD SYSTOLIC BP IN 90S. GIANCARLO CONTRERAS MADE AWARE OF PT COMPLAIN OF PAIN. PER GIANCARLO CONTRERAS, OKAY TO GIVE DILAUDID.
[2020-11-27] MEDS: HYDROMORPHONE INJ 2 MG/ML DISP.SYRIN IV PRN ×4 (01:34→22:21)
--- NOTE | 2020-11-27 01:34 | NUR ---
RN NOTE DILAUDID GIVEN ORDERED PER GIANCARLO CONTRERAS. PT COMPLAINED OF GENERALIZED PAIN 10/. ASSISTED BACK TO BED. REPOSITIONED FOR COMFORT. HOB ELEVATED. CALL LIGHT WITHIN REACH. WILL CONTINUE TO MONITOR.
--- NOTE | 2020-11-27 02:04 | NUR ---
RN NOTE REASSESSED PT AT THIS TIME, PT STATED PAIN IS STILL THE SAME. CURRENTLY AWAKE, WATCHING TV, NO SIGNS OF DISTRESS. REPOSITIONED FOR COMFORT. ENCOURAGED TO RELAX. CALL LIGHT PLACED WITHIN REACH. PT BEING CLOSELY MONITORED.
[2020-11-27 04:00] VITALS: BP 99/51
--- NOTE | 2020-11-27 07:30 | NUR ---
RN NOTE NO CHANGES IN PT CONDITION THROUGHOUT THE SHIFT. PT WAS ON 5L O2 VIA NC SHOWING NO S/S OF RESPIRATORY DISTRESS. A&OX4. PT IS AMBULATORY WITH ASSISTANCE. PT HAS RIGHT UPPER ARM MIDLINE, FLUSHED PATENT AND INTACT. ALL DUE MEDS GIVEN ORDERED. PT KEPT CLEAN AND COMFORTABLE. ALL SAFETY MEASURES IMPLEMENTED. BED LOCKED AND IN LOWEST POSITION, BED ALARM ON, CALL LIGHT WITHIN REACH. WILL CONTINUE TO MONITOR THROUGHOUT THE SHIFT.
[2020-11-27] MEDS: LACTULOSE 10 G/15 ML UDC (PYXIS) PO SCH ×3 (08:15→16:48)
[2020-11-27] MEDS: RIFAXIMIN 550 MG TABLET PO SCH (08:15)
[2020-11-27] MEDS: PANTOPRAZOLE 40 MG TABLET.DR PO SCH (08:15)
[2020-11-27 08:33] LABS: BASOPHILS # (AUTO) 0.1 K/uL (0.0-0.2); BASOPHILS % (AUTO) 0.7 % (0.0-2.0); EOSINOPHILS % (AUTO) 0.3 % (0.0-6.0); HEMATOCRIT 22 % (39-51); HEMOGLOBIN 7.3 g/dL (13.5-17.5); LYMPHOCYTES # (AUTO) 0.7 K/uL (0.8-4.8); LYMPHOCYTES % (AUTO) 4.4 % (20.0-44.0); MEAN CORPUSCULAR HGB CONC 34 g/dl (31.0-36.0); MEAN CORPUSCULAR VOLUME 115 fL (80-96); MONOCYTES % (AUTO) 18.3 % (2.0-12.0); NEUTROPHILS # (AUTO) 12.5 K/uL (1.8-8.9); NEUTROPHILS % (AUTO) 76.3 % (43.0-81.0); PLATELET COUNT (AUTO) 131 K/uL (150-450); WHITE BLOOD COUNT (AUTO) 16.4 K/uL (4.3-11.0)
[2020-11-27 08:34] LABS: CALCIUM, SERUM 8.2 mg/dL (8.5-10.1); POTASSIUM 4.5 mmol/L (3.5-5.1); RED BLOOD CELL COUNT(AUTO) 1.86 MIL/uL (4.5-6.0)
[2020-11-27 09:23] LABS: LYMPHOCYTES % (MANUAL) 5 % (16-48); MONOCYTES % (MANUAL) 17 % (0-11.0); NEUTROPHILS % (MANUAL) 78 (42-76)
[2020-11-27] MEDS: ALBUMIN IV SCH (09:33)
[2020-11-27] MEDS: OCTREOTIDE 500 MCG in IV NS 0.9% 99 ML IV PRN ×2 (09:33→22:43)
[2020-11-27] MEDS: PIPERACILLIN /TAZOBACTAM 3.375 G in IV D5W 100 ML IV SCH ×2 (10:07→23:18)
[2020-11-27 12:00] VITALS: BP 101/56
[2020-11-27] MEDS: MIDODRINE HCL (5MG) 5 MG TABLET PO SCH ×2 (12:41→16:48)
--- NOTE | 2020-11-27 19:40 | NUR ---
RN OPENING NOTE RECEIVED PATIENT SITTING IN CHAIR. AXOX4. ON 5L O2 VIA NC WITH HUMIDIFIER, O2 SATURATIONS ABOVE 95%. NO SOB OR RESP. DISTRESS NOTED. 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 (L) AC IV INFILTRATED, WILL D/C. (R) UA MIDLINE PATENT AND INTACT, ABDOMEN IS DISTENDED, AND +3 (B) EDEMA IN LOWER EXTREMITIES. LEMUS CATHETER PATENT AND DRAINING CULLEN CLEAR URINE. JAUNDICE PRESENT. BRP STAND BY ASSIST. SAFETY MEASURES IN PLACE. BED IS LOW AND IN LOCKED POSITION. CALL LIGHT WITHIN REACH. SRX3. NO ACUTE DISTRESS NOTED AT THIS TIME.
[2020-11-27 20:00] VITALS: BP 128/78
--- NOTE | 2020-11-27 21:00 | NUR ---
RN NOTE IV (L) AC INFILTRATED AND ERYTHEMA NOTED, REMOVED AND SITE COVERED WITH GAUZE. NO BLEEDING NOTED.
--- NOTE | 2020-11-27 23:00 | NUR ---
RN NOTE DILAUDID 2MG PRN DOSE GIVEN FOR PAIN LEVEL 9/10 GENERALIZED ANTERIOR (R) AND (L) ABDOMEN AT 2221. PT. NOW VERBALIZES PAIN RELIEF WITH PAIN LEVEL 3/10. MEDICATION EFFECTIVE AND PT. SLEEPING COMFORTABLY IN BED. NO ACUTE DISTRESS NOTED AT THIS TIME.
[2020-11-28 04:00] VITALS: BP 128/78
[2020-11-28] MEDS: HYDROMORPHONE INJ 2 MG/ML DISP.SYRIN IV PRN ×5 (05:13→21:33)
--- NOTE | 2020-11-28 06:12 | NUR ---
RN NOTE DILAUDID 2MG PRN DOSE GIVEN FOR PAIN LEVEL 9/10 GENERALIZED ANTERIOR (R) AND (L) ABDOMEN AT 0513. PT. NOW VERBALIZES PAIN RELIEF WITH PAIN LEVEL 4/10. MEDICATION EFFECTIVE AND PT. SITTING COMFORTABLY IN BED. NO ACUTE DISTRESS NOTED AT THIS TIME
--- NOTE | 2020-11-28 06:31 | NUR ---
RN CLOSING NOTE PATIENT LAYING IN BED. AXOX4. ON 5L O2 VIA NC WITH HUMIDIFIER, O2 SATURATIONS ABOVE 95%. NO SOB OR RESP. DISTRESS NOTED. COMPLAINS OF PAIN IN ANTERIOR AND POSTERIOR ABDOMEN TREATED WITH DILAUDID PRN DOSES. (R) UA MIDLINE BOTH PATENT AND INTACT, ABDOMEN IS DISTENDED, AND +3 (B) EDEMA IN LOWER EXTREMITIES. JAUNDICE PRESENT. BRP STAND BY ASSIST. SAFETY MEASURES IN PLACE. BED IS LOW AND IN LOCKED POSITION. CALL LIGHT WITHIN REACH. SRX3. STRICT I&O PER MD ORDERS: x2 BM DURING SHIFT AND 700 ML OF CULLEN URINE DRAINING THROUGH GRAVITY FROM LEMUS CATHETER.ON CONTINUOS OCTREOTIDE DRIP RUNNING AT 10ML/HR THROUGH (R) UA MIDLINE. HOLD ALL DIURETICS AND POSSIBLE HD TODAY PER MD NOTES. NO ACUTE DISTRESS NOTED AT THIS TIME. WILL ENDORSE CONTINUITY OF CARE TO MORNING SHIFT RN
[2020-11-28 06:53] LABS: ALBUMIN 2.9 g/dL (3.4-5.0); BILIRUBIN,TOTAL 10.4 mg/dL (0.2-1.0); CALCIUM, SERUM 8.8 mg/dL (8.5-10.1); CREATININE 5.3 mg/dL (0.6-1.3); MAGNESIUM 2.6 mg/dL (1.8-2.4); POTASSIUM 4.2 mmol/L (3.5-5.1); TOTAL PROTEIN, SERUM 6.4 g/dL (6.4-8.2)
--- NOTE | 2020-11-28 07:30 | NUR ---
MS RN AM NOTE RECEIVED PATIENT IN BED, AXOX4. ON 5L O2 VIA NC WITH HUMIDIFIER, O2 SATURATIONS ABOVE 95%. NO SOB OR RESP. DISTRESS NOTED. 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 (R) UA MIDLINE PATENT AND INTACT, ABDOMEN IS DISTENDED, AND +3 (B) EDEMA IN LOWER EXTREMITIES. LEMUS CATHETER PATENT AND DRAINING CULLEN CLEAR URINE. JAUNDICE PRESENT. BRP STAND BY ASSIST. SAFETY MEASURES IN PLACE. BED IS LOW AND IN LOCKED POSITION. CALL LIGHT WITHIN REACH. SRX3. NO ACUTE DISTRESS NOTED AT THIS TIME. WILL CONT TO MONITOR.
[2020-11-28 08:00] VITALS: BP 101/59
[2020-11-28] MEDS: PANTOPRAZOLE 40 MG TABLET.DR PO SCH (08:44)
[2020-11-28] MEDS: RIFAXIMIN 550 MG TABLET PO SCH (08:45)
[2020-11-28] MEDS: LACTULOSE 10 G/15 ML UDC (PYXIS) PO SCH ×3 (08:46→16:31)
[2020-11-28] MEDS: MIDODRINE HCL (5MG) 5 MG TABLET PO SCH ×3 (08:48→16:32)
[2020-11-28 09:12] LABS: EOSINOPHILS % (AUTO) 1.5 % (0.0-6.0); HEMATOCRIT 21 % (39-51); HEMOGLOBIN 7.1 g/dL (13.5-17.5); LYMPHOCYTES # (AUTO) 1.1 K/uL (0.8-4.8); LYMPHOCYTES % (AUTO) 8.4 % (20.0-44.0); MEAN CORPUSCULAR HGB CONC 35 g/dl (31.0-36.0); MEAN CORPUSCULAR VOLUME 114 fL (80-96); MONOCYTES # (AUTO) 2.3 K/uL (0.1-1.30); MONOCYTES % (AUTO) 17.8 % (2.0-12.0); NEUTROPHILS # (AUTO) 9.2 K/uL (1.8-8.9); NEUTROPHILS % (AUTO) 72.3 % (43.0-81.0); PLATELET COUNT (AUTO) 101 K/uL (150-450); WHITE BLOOD COUNT (AUTO) 12.7 K/uL (4.3-11.0)
[2020-11-28 09:15] LABS: RED BLOOD CELL COUNT(AUTO) 1.81 MIL/uL (4.5-6.0)
--- NOTE | 2020-11-28 09:30 | NUR ---
RN NOTES DUE MEDS GIVEN
[2020-11-28] MEDS: ALBUMIN IV SCH (10:05)
[2020-11-28 10:59] LABS: EOSINOPHILS % (MANUAL) 1 % (0-4); LYMPHOCYTES % (MANUAL) 10 % (16-48); MONOCYTES % (MANUAL) 16 % (0-11.0); NEUTROPHILS % (MANUAL) 73 (42-76)
[2020-11-28] MEDS: PIPERACILLIN /TAZOBACTAM 3.375 G in IV D5W 100 ML IV SCH ×2 (11:44→22:52)
--- NOTE | 2020-11-28 14:30 | NUR ---
RN NOTES PER DR. DARLENE GALARZA. PATIENT FOR HD PLACEMENT C/O CAMERON DAWSON. FOR POSSIBLE DIALYSIS TOMORROW. ALL CONSENTS ARE SIGNED.
--- NOTE | 2020-11-28 16:56 | NUR ---
RN NOTES PATIENT TRANSFERRED TO RM 320. REPORT GIVEN TO EFRAÍN DAWSON EARLIER
[2020-11-28 17:05] VITALS: BP 102/52
--- NOTE | 2020-11-28 17:05 | NUR ---
MS PAYROLL ANALYST NOTE RECEIVED REPORT FROM ANKIT DAWSON. PATIENT A/OX3; ABLE TO MAKE NEEDS KNOWN. ON O2 5LPM TOLERATING WELL AT WITH SOB AT SPO2 AT 96%. GEOFF MIDLINE S/L PATENT AND INTACT. WILL CONT PAIN MANAGEMENT ORDERED. F/C DRAINING DARK BROWN COLORED URINE; PATENT AND INTACT. VSS. SAFETY MEASURES IN PLACE: BED IN LOWEST LOCKED POSITION, SIDE RAILS UPX2, CALL LIGHT WITHIN EASY REACH, BED ALARMS ON. PATIENT IN STABLE CONDITION, WILL CONTINUE PLAN OF CARE.
[2020-11-28 20:00] VITALS: BP 110/67
[2020-11-29] MEDS: HYDROMORPHONE INJ 2 MG/ML DISP.SYRIN IV PRN ×5 (01:39→20:17)
--- NOTE | 2020-11-29 07:08 | NUR ---
MS BROADCAST CHECKER NOTE PATIENT A/OX3; ABLE TO MAKE NEEDS KNOWN. ON O2 5LPM TOLERATING WELL AT WITH SOB AT SPO2 AT 97%. GEOFF MIDLINE S/L PATENT AND INTACT. ADMINISTERED DILAUDID PAIN MANAGEMENT ORDERED. F/C DRAINING DARK BROWN COLORED URINE; PATENT AND INTACT. VSS. SAFETY MEASURES IN PLACE: BED IN LOWEST LOCKED POSITION, SIDE RAILS UPX2, CALL LIGHT WITHIN EASY REACH, BED ALARMS ON. PATIENT IN STABLE CONDITION, WILL CONTINUE PLAN OF CARE.
--- NOTE | 2020-11-29 07:26 | NUR ---
MS RN CLOSING NOTE PATIENT A/OX3; ABLE TO MAKE NEEDS KNOWN. ON O2 5LPM TOLERATING WELL AT WITH SOB AT SPO2 AT 96%. GEOFF MIDLINE S/L PATENT AND INTACT. ADMINISTERED DILAUDID FOR PAIN MANAGEMENT ORDERED THROUGHOUT SHIFT . F/C DRAINING DARK BROWN COLORED URINE; PATENT AND INTACT. VSS. SAFETY MEASURES IN PLACE: BED IN LOWEST LOCKED POSITION, SIDE RAILS UPX2, CALL LIGHT WITHIN EASY REACH, BED ALARMS ON. PATIENT IN STABLE CONDITION, ENDORSED PLAN OF CARE TO ONCOMING MORNING RN.
[2020-11-29 07:51] LABS: BASOPHILS # (AUTO) 0.1 K/uL (0.0-0.2); EOSINOPHILS % (AUTO) 2.9 % (0.0-6.0); LYMPHOCYTES # (AUTO) 1.1 K/uL (0.8-4.8); LYMPHOCYTES % (AUTO) 9.5 % (20.0-44.0); MEAN CORPUSCULAR HGB CONC 35 g/dl (31.0-36.0); MEAN CORPUSCULAR VOLUME 113 fL (80-96); MONOCYTES # (AUTO) 2.5 K/uL (0.1-1.30); NEUTROPHILS # (AUTO) 7.9 K/uL (1.8-8.9); NEUTROPHILS % (AUTO) 65.6 % (43.0-81.0); PLATELET COUNT (AUTO) 90 K/uL (150-450)
[2020-11-29 07:54] LABS: RED BLOOD CELL COUNT(AUTO) 1.58 MIL/uL (4.5-6.0)
[2020-11-29 07:56] LABS: HEMOGLOBIN 6.2 g/dL (13.5-17.5)
[2020-11-29 07:57] LABS: HEMATOCRIT 18 % (39-51)
[2020-11-29 08:00] VITALS: BP 100/60
[2020-11-29 08:28] LABS: BILIRUBIN,TOTAL 10.4 mg/dL (0.2-1.0); CALCIUM, SERUM 8.2 mg/dL (8.5-10.1); CREATININE 5.5 mg/dL (0.6-1.3); MAGNESIUM 2.7 mg/dL (1.8-2.4); PHOSPHORUS 6.8 mg/dL (2.5-4.9); POTASSIUM 3.8 mmol/L (3.5-5.1); TOTAL PROTEIN, SERUM 6.1 g/dL (6.4-8.2)
[2020-11-29 08:47] LABS: BAND % (MANUAL) 1 % (0.0-5.0); EOSINOPHILS % (MANUAL) 4 % (0-4); LYMPHOCYTES % (MANUAL) 12 % (16-48); MONOCYTES % (MANUAL) 19 % (0-11.0); NEUTROPHILS % (MANUAL) 64 (42-76)
[2020-11-29] MEDS: RIFAXIMIN 550 MG TABLET PO SCH (09:29)
[2020-11-29] MEDS: LACTULOSE 10 G/15 ML UDC (PYXIS) PO SCH ×3 (09:29→18:00)
[2020-11-29] MEDS: MIDODRINE HCL (5MG) 5 MG TABLET PO SCH ×3 (09:30→18:00)
[2020-11-29] MEDS: PANTOPRAZOLE 40 MG TABLET.DR PO SCH (09:30)
--- NOTE | 2020-11-29 10:23 | NUR ---
MS RN OPENING NOTE PATIENT IS IN BED RESTING, PATIENT IS IN NO ACUTE DISTRESS. PATIENT IS ON 5L OXYGEN SATURATING WELL. PATIENT HAS LEMUS CATHETER IN PLACE. SAFETY PRECAUTIONS ARE ON, BED IS LOCKED INT HE LOWEST POSITION, WITH SIDE RAILS UP, CALL LIGHT WITHIN REACH, WILL CONTINUE TO MONITOR.
[2020-11-29] MEDS: PIPERACILLIN /TAZOBACTAM 3.375 G in IV D5W 100 ML IV SCH ×2 (10:46→23:00)
[2020-11-29 16:00] VITALS: BP 106/61
--- NOTE | 2020-11-29 16:15 | NUR ---
MS RN NOTE PATIENT HEMOGLOBIN IS 6.2, HEMATOCRIT 18, PATIENT BUN IS 106, AND CREATININE IS 5.5, DR. DARLENE HORVATH IS MADE AWARE 3 TIMES. CAME UPSTAIRS TO VIEW THE CHART, MD DID NOT GIVE ANY ORDERS AT THIS TIME.
--- NOTE | 2020-11-29 18:44 | NUR ---
MS RN OPENING NOTE PATIENT IS IN BED RESTING, PATIENT IS IN NO ACUTE DISTRESS. PATIENT IS ON 2L OXYGEN SATURATING WELL. PATIENT HAS LEMUS CATHETER IN PLACE. PATIENT WILL HAVE ON 1 UNIT OF PRBC TRANSFUSED FOR THE REPAIR TECHNICIAN. SAFETY PRECAUTIONS ARE ON, BED IS LOCKED INT HE LOWEST POSITION, WITH SIDE RAILS UP, ENDORSE PATIENT TO REPAIR TECHNICIAN NURSE FOR LOKESH.
--- NOTE | 2020-11-29 19:00 | NUR ---
MS RN OPENING NOTES RECEIVE PT AWAKE IN BED AT THIS TIME. AOX2-3. ABLE TO VERBALIZE NEEDS. NO S/O OF ANY ACUTE DISTRESS NOTED, DENIES PAIN AT THIS. PT ON 4LP OXYGEN VIA NC. RECEIVING DIALYSIS RIGHT FEMORAL CATH, HD OUTPUT OF 500ML, IV ACCESS IN GEOFF MIDLINE INTACT AND PATENT AND FLUSHING WELL. LEMUS CATHETER IN PLACE DRAINING TO GRAVITY DARK BROWN URINE OUTPUT. SAFETY PRECAUTIONS IN PLACE AND MAINTAINED AT ALL TIMES. BED IN LOWEST LOCKED POSITION, HOB ELEVATED, SIDE RAILS UP X2, CALL LIGHT AND TABLE WITHIN REACH. WILL CONTINUE TO MONITOR
[2020-11-29 20:00] VITALS: BP 110/63
--- NOTE | 2020-11-29 20:17 | NUR ---
PT C/O ACHING 9/10 PAIN ON HIS R U ABDOMEN, BP 118/60 HR 91 RR 20 TEMP 98.2, O2 [id number]% ON 2L NC, PER PT REQUEST DILAUDID 2MG/1ML IV Q4HR PRN ADMINISTERED PER ORDER. WILL CONTINUE TO MONITOR.
[2020-11-29 22:35] VITALS: BP 107/64
--- NOTE | 2020-11-29 22:35 | NUR ---
BLOOD TRANSFUSION STARTED AT THIS TIME. VS BP107/65 HR 88 RR 20 T98.6 SPO2 98. NO C/O ANY ADVERSE REACTIONS TO TRANSFUSION. NO SOB, NO BACK ACHE, NO CHILLS. PATIENT REMAINS AFEBRILE. WILL CONTINUE TO MONITOR
[2020-11-29 22:45] VITALS: BP 99/54
--- NOTE | 2020-11-29 22:45 | NUR ---
PATIENT ONGOING BLOOD TRANSFUSION AT THIS TIME. VS BP 99/54 HR 86, RR, 18, T98.2, SPO2 98. NO C/O ANY ADVERSE REACTIONS TO TRANSFUSION. NO SOB, NO BACK ACHE, NO CHILLS. PATIENT REMAINS AFEBRILE. WILL CONTINUE TO MONITOR
--- NOTE | 2020-11-29 23:30 | NUR ---
EMIR HELD. PT RECEIVING BLOOD INFUSION AT THE MOMENT
[2020-11-29 23:45] VITALS: BP 104/59
--- NOTE | 2020-11-29 23:45 | NUR ---
PATIENT ONGOING BLOOD TRANSFUSION AT THIS TIME. VS BP 104/59 HR 83, RR 18, T 97.9, SPO2 99. NO C/O ANY ADVERSE REACTIONS TO TRANSFUSION. NO SOB, NO BACK ACHE, NO CHILLS. PATIENT REMAINS AFEBRILE. WILL CONTINUE TO MONITOR
[2020-11-30] MEDS: HYDROMORPHONE INJ 2 MG/ML DISP.SYRIN IV PRN ×5 (01:04→21:00)
--- NOTE | 2020-11-30 01:04 | NUR ---
PT C/O ACHING 9/10 PAIN ON HIS R U ABDOMEN, VS WNL PER PT REQUEST DILAUDID 2MG/1ML IV Q4HR PRN ADMINISTERED PER ORDER. WILL CONTINUE TO MONITOR.
[2020-11-30 01:50] VITALS: BP 108/55
--- NOTE | 2020-11-30 01:50 | NUR ---
BLOOD TRANSFUSION ENDED AT THIS TIME. VS BP108/55 HR 85 RR 20 T98.1 SPO2 95. NO C/O ANY ADVERSE REACTIONS TO TRANSFUSION. NO SOB, NO BACK ACHE, NO CHILLS. PATIENT REMAINS AFEBRILE. WILL CONTINUE TO MONITOR
[2020-11-30] MEDS: PIPERACILLIN /TAZOBACTAM 3.375 G in IV D5W 100 ML IV SCH ×2 (02:21→22:22)
--- NOTE | 2020-11-30 06:00 | NUR ---
MS RN CLOSING NOTE PT AWAKE AND RESTING IN BED COMFORTABLY AT THIS TIME. PT REMAINED STABLE THROUGHOUT SHIFT. ALL NEEDS, MEDICATIONS, AND CARE ADMINISTERED AND PAIN CONTROL ADMINISTERED ANTICIPATED PER ORDER. PT REPOSITIONED Q2HR AND PRN. IV ACCESS INTACT, PATENT AND FLUSHING. LEMUS CATHETER IN PLACE NA DRAINING TEA COLORED URINE. SAFETY PRECAUTIONS IN LOWEST LOCKED POSITION, HOB ELEVATED, SIDE RAILS UP X2. CALL LIGHT AND TABLE WITHIN REACH. WILL ENDORSE TO DAY SHIFT NURSE FOR LOKESH. Addendum: 11/30/20 at 0642 by NANCI LEVY RN MS RN CLOSING NOTE PT AWAKE AND RESTING IN BED COMFORTABLY AT THIS TIME. PT REMAINED STABLE THROUGHOUT SHIFT. ALL NEEDS, MEDICATIONS, CARE, AND PAIN CONTROL ADMINISTERED ANTICIPATED PER ORDER. PT REPOSITIONED Q2HR AND PRN. IV ACCESS INTACT, PATENT AND FLUSHING. LEMUS CATHETER IN PLACE NA DRAINING TEA COLORED URINE. SAFETY PRECAUTIONS IN LOWEST LOCKED POSITION, HOB ELEVATED, SIDE RAILS UP X2. CALL LIGHT AND TABLE WITHIN REACH. WILL ENDORSE TO DAY SHIFT NURSE FOR LOKESH.
[2020-11-30 06:42] LABS: BASOPHILS % (AUTO) 0.3 % (0.0-2.0); EOSINOPHILS % (AUTO) 2.7 % (0.0-6.0); HEMATOCRIT 21 % (39-51); HEMOGLOBIN 7.5 g/dL (13.5-17.5); LYMPHOCYTES % (AUTO) 7.6 % (20.0-44.0); MEAN CORPUSCULAR HGB CONC 35 g/dl (31.0-36.0); MEAN CORPUSCULAR VOLUME 111 fL (80-96); MONOCYTES # (AUTO) 2.3 K/uL (0.1-1.30); MONOCYTES % (AUTO) 18.6 % (2.0-12.0); NEUTROPHILS # (AUTO) 8.8 K/uL (1.8-8.9); NEUTROPHILS % (AUTO) 70.8 % (43.0-81.0); PLATELET COUNT (AUTO) 80 K/uL (150-450); WHITE BLOOD COUNT (AUTO) 12.5 K/uL (4.3-11.0)
[2020-11-30 06:51] LABS: RED BLOOD CELL COUNT(AUTO) 1.92 MIL/uL (4.5-6.0)
[2020-11-30 07:32] LABS: ALBUMIN 2.8 g/dL (3.4-5.0); BILIRUBIN,TOTAL 11.5 mg/dL (0.2-1.0); CREATININE 4.3 mg/dL (0.6-1.3); MAGNESIUM 2.5 mg/dL (1.8-2.4); PHOSPHORUS 5.6 mg/dL (2.5-4.9); TOTAL PROTEIN, SERUM 6.2 g/dL (6.4-8.2)
[2020-11-30 08:00] VITALS: BP 103/59
--- NOTE | 2020-11-30 08:15 | NUR ---
MS RN OPENING NOTE PATIENT IS IN BED RESTING, PATIENT IS IN NO ACUTE DISTRESS. PATIENT IS ON 2L OXYGEN SATURATING WELL. PATIENT HAS LEMUS CATHETER IN PLACE. SAFETY PRECAUTIONS ARE ON, BED IS LOCKED INT HE LOWEST POSITION, WITH SIDE RAILS UP, WILL CONTINUE TO MONITOR.
[2020-11-30 08:23] LABS: EOSINOPHILS % (MANUAL) 2 % (0-4); LYMPHOCYTES % (MANUAL) 8 % (16-48); METAMYELOCYTES % 2 % (0-0); MONOCYTES % (MANUAL) 2 % (0-11.0); MYELOCYTES % 2 % (0-0); NEUTROPHILS % (MANUAL) 84 (42-76)
[2020-11-30] MEDS: RIFAXIMIN 550 MG TABLET PO SCH (08:26)
[2020-11-30] MEDS: PANTOPRAZOLE 40 MG TABLET.DR PO SCH (08:26)
[2020-11-30] MEDS: MIDODRINE HCL (5MG) 5 MG TABLET PO SCH ×3 (08:27→16:56)
[2020-11-30] MEDS: LACTULOSE 10 G/15 ML UDC (PYXIS) PO SCH ×3 (08:27→16:55)
[2020-11-30 16:00] VITALS: BP 105/61
--- NOTE | 2020-11-30 18:53 | NUR ---
MS RN CLOSING NOTE PATIENT IS IN BED RESTING, PATIENT IS IN NO ACUTE DISTRESS. PATIENT IS ON 2L OXYGEN SATURATING WELL. PATIENT HAS LEMUS CATHETER IN PLACE. PATIENT IS BEING DIALYZED. SAFETY PRECAUTIONS ARE ON, BED IS LOCKED INT HE LOWEST POSITION, WITH SIDE RAILS UP, ENDORSE PATIENT TO AIRCRAFT LOG CLERK NURSE FOR LOKESH. IZED SAFETY PRECAUTIONS ARE ON, BED IS LOCKED INT HE LOWEST POSITION, WITH SIDE RAILS UP, ENDORSE PATIENT TO AIRCRAFT LOG CLERK NURSE FOR LOKESH.
--- NOTE | 2020-11-30 19:00 | NUR ---
MS RN OPENING NOTES RECEIVED PT AWAKE IN BED AT THIS TIME. A/O X3. ABLE TO VERBALIZE NEEDS. NO S/O OF ANY ACUTE DISTRESS NOTED, DENIES PAIN AT THIS TIME. PT ON 2LP OXYGEN VIA NC. RECEIVING DIALYSIS RIGHT FEMORAL CATH, HD OUTPUT OF 3000ML, IV ACCESS IN GEOFF MIDLINE INTACT, PATENT AND FLUSHING WELL. LEMUS CATHETER IN PLACE DRAINING TO GRAVITY. SAFETY PRECAUTIONS IN PLACE AND MAINTAINED AT ALL TIMES. BED IN LOWEST LOCKED POSITION, HOB ELEVATED, SIDE RAILS UP X2, CALL LIGHT AND TABLE WITHIN REACH. WILL CONTINUE TO MONITOR
[2020-11-30 20:35] VITALS: BP 85/60
--- NOTE | 2020-11-30 21:00 | NUR ---
PT C/O GENERALIZED ACHING 9/10 PAIN, PER PT REQUEST DILAUDID 2MG/1ML IV Q4HR PRN ADMINISTERED PER ORDER. WILL CONTINUE TO MONITOR.
[2020-12-01] MEDS: HYDROMORPHONE INJ 2 MG/ML DISP.SYRIN IV PRN ×5 (01:09→20:06)
--- NOTE | 2020-12-01 01:31 | NUR ---
PT C/O GENERALIZED ACHING 9/10 PAIN, PER PT REQUEST DILAUDID 2MG/1ML IV Q4HR PRN ADMINISTERED PER ORDER. WILL CONTINUE TO MONITOR. Addendum: 12/01/20 at 0212 by NANCI LEVY RN @ 0109, PT C/O GENERALIZED ACHING 9/10 PAIN, PER PT REQUEST DILAUDID 2MG/1ML IV Q4HR PRN ADMINISTERED PER ORDER. WILL CONTINUE TO MONITOR.
--- NOTE | 2020-12-01 06:00 | NUR ---
MS RN CLOSING NOTE PT AWAKE AND RESTING IN BED COMFORTABLY AT THIS TIME. PT REMAINED STABLE THROUGHOUT SHIFT. ALL NEEDS, MEDICATIONS, AND CARE ADMINISTERED AND PAIN CONTROL ADMINISTERED ANTICIPATED PER ORDER. PT REPOSITIONED Q2HR AND PRN. IV ACCESS INTACT, PATENT AND FLUSHING. LEMUS CATHETER IN PLACE NA DRAINING TEA COLORED URINE. SAFETY PRECAUTIONS IN LOWEST LOCKED POSITION, HOB ELEVATED, SIDE RAILS UP X2. CALL LIGHT AND TABLE WITHIN REACH. WILL ENDORSE TO DAY SHIFT NURSE FOR LOKESH.
--- NOTE | 2020-12-01 06:07 | NUR ---
PT C/O GENERALIZED ACHING 9/10 PAIN, PER PT REQUEST DILAUDID 2MG/1ML IV Q4HR PRN ADMINISTERED PER ORDER. WILL CONTINUE TO MONITOR.
[2020-12-01 06:56] LABS: ALBUMIN 2.7 g/dL (3.4-5.0); BILIRUBIN,TOTAL 14.3 mg/dL (0.2-1.0); CALCIUM, SERUM 8.3 mg/dL (8.5-10.1); CREATININE 3.8 mg/dL (0.6-1.3); MAGNESIUM 2.3 mg/dL (1.8-2.4); PHOSPHORUS 5.3 mg/dL (2.5-4.9); POTASSIUM 3.9 mmol/L (3.5-5.1); TOTAL PROTEIN, SERUM 6.1 g/dL (6.4-8.2)
[2020-12-01 08:08] LABS: BASOPHILS # (AUTO) 0.1 K/uL (0.0-0.2); BASOPHILS % (AUTO) 0.5 % (0.0-2.0); EOSINOPHILS % (AUTO) 1.8 % (0.0-6.0); HEMATOCRIT 21 % (39-51); HEMOGLOBIN 7.2 g/dL (13.5-17.5); LYMPHOCYTES # (AUTO) 0.9 K/uL (0.8-4.8); LYMPHOCYTES % (AUTO) 5.4 % (20.0-44.0); MEAN CORPUSCULAR HGB CONC 35 g/dl (31.0-36.0); MEAN CORPUSCULAR VOLUME 111 fL (80-96); MONOCYTES # (AUTO) 2.4 K/uL (0.1-1.30); NEUTROPHILS # (AUTO) 12.6 K/uL (1.8-8.9); NEUTROPHILS % (AUTO) 77.3 % (43.0-81.0); PLATELET COUNT (AUTO) 74 K/uL (150-450); WHITE BLOOD COUNT (AUTO) 16.3 K/uL (4.3-11.0)
[2020-12-01 08:14] LABS: RED BLOOD CELL COUNT(AUTO) 1.85 MIL/uL (4.5-6.0)
[2020-12-01] MEDS: PANTOPRAZOLE 40 MG TABLET.DR PO SCH (08:46)
[2020-12-01] MEDS: LACTULOSE 10 G/15 ML UDC (PYXIS) PO SCH ×3 (08:47→16:26)
[2020-12-01] MEDS: MIDODRINE HCL (5MG) 5 MG TABLET PO SCH ×3 (08:52→16:27)
[2020-12-01] MEDS: RIFAXIMIN 550 MG TABLET PO SCH (08:52)
[2020-12-01 09:33] VITALS: BP 108/62
--- NOTE | 2020-12-01 09:54 | NUR ---
RN OPENING NOTE- RECEIVED PT AWAKE IN BED AT THIS TIME. A/O X3. ABLE TO VERBALIZE NEEDS. NO S/O OF ANY ACUTE DISTRESS NOTED, DENIES PAIN AT THIS TIME. PT ON 2LP OXYGEN VIA NC. LEMUS CATHETER IN PLACE DRAINING TO GRAVITY. SAFETY PRECAUTIONS IN PLACE AND MAINTAINED AT ALL TIMES. BED IN LOWEST LOCKED POSITION, HOB ELEVATED, SIDE RAILS UP X2, CALL LIGHT AND TABLE WITHIN REACH. WILL CONTINUE TO MONITOR
[2020-12-01] MEDS: PIPERACILLIN /TAZOBACTAM 2.25 G in IV D5W 50 ML IV SCH ×2 (11:18→18:16)
[2020-12-01 14:00] VITALS: BP 104/56
--- NOTE | 2020-12-01 18:43 | NUR ---
RN CLOSING NOTE- PT IS CALM THOUGH PERIODICALLY C/O ANXIETY. PAIN DIMINISHED W DILAUDID IVP TODAY. RX EFFECTIVE. PO INTAKE POOR. CXR TODAY COMPLETED - INCREASED LFT PLEURAL EFFUSION. PT TO HAVE CXR IN MORNING WELL CBC, CMP, MAG AND PHOS. BED LOCKED, CALL WHITLOCK CLOSE, MONITOR AND ASSIST
--- NOTE | 2020-12-01 19:49 | NUR ---
MS DAWSON Opening Notes Patient was last seen sleeping in bed. Patient's alert and oriented x1-2. Patient's on room air with no respiratory distress noted. Patient has a GEOFF PICC line. Patient's in no acute distress at this time. Safety measures in place: Bed locked, bed alarm on, side rails up x3, and call light within reach of the patient. Will continue to monitor the patient. Addendum: 12/01/20 at 1952 by OSMANY HERNANDEZ RN Patient's alert and oriented x4.
[2020-12-01 20:00] VITALS: BP 113/60
--- NOTE | 2020-12-01 20:07 | NUR ---
MS RN Notes Patient c/o of 9/10 pain in his back. Patient was given 2 mg of Dilaudid IV at 2005. Will continue to monitor the patient.
[2020-12-02] MEDS: HYDROMORPHONE INJ 2 MG/ML DISP.SYRIN IV PRN ×6 (00:08→22:48)
--- NOTE | 2020-12-02 00:08 | NUR ---
MS RN Notes Patient c/o of 9/10 pain in his back. Patient was given 2 mg of Dilaudid IV at 0008. Will continue to monitor the patient.
[2020-12-02] MEDS: PIPERACILLIN /TAZOBACTAM 2.25 G in IV D5W 50 ML IV SCH ×3 (03:04→19:03)
--- NOTE | 2020-12-02 04:25 | NUR ---
MS RN Notes Patient c/o of 9/10 pain in his back. Patient was given 2 mg of Dilaudid IV at 0425. Will continue to monitor the patient.
[2020-12-02 06:25] LABS: BASOPHILS # (AUTO) 0.1 K/uL (0.0-0.2); BASOPHILS % (AUTO) 0.6 % (0.0-2.0); EOSINOPHILS % (AUTO) 0.9 % (0.0-6.0); HEMATOCRIT 23 % (39-51); LYMPHOCYTES # (AUTO) 0.9 K/uL (0.8-4.8); LYMPHOCYTES % (AUTO) 4.6 % (20.0-44.0); MEAN CORPUSCULAR HGB CONC 35 g/dl (31.0-36.0); MEAN CORPUSCULAR VOLUME 112 fL (80-96); MONOCYTES # (AUTO) 2.4 K/uL (0.1-1.30); NEUTROPHILS # (AUTO) 16.5 K/uL (1.8-8.9); NEUTROPHILS % (AUTO) 81.9 % (43.0-81.0); PLATELET COUNT (AUTO) 100 K/uL (150-450); RED BLOOD CELL COUNT(AUTO) 2.03 MIL/uL (4.5-6.0); WHITE BLOOD COUNT (AUTO) 20.1 K/uL (4.3-11.0)
[2020-12-02 06:35] LABS: BILIRUBIN,TOTAL 15.9 mg/dL (0.2-1.0); CALCIUM, SERUM 8.7 mg/dL (8.5-10.1); CREATININE 4.3 mg/dL (0.6-1.3); MAGNESIUM 2.4 mg/dL (1.8-2.4); PHOSPHORUS 6.2 mg/dL (2.5-4.9); POTASSIUM 4.1 mmol/L (3.5-5.1); TOTAL PROTEIN, SERUM 6.9 g/dL (6.4-8.2)
--- NOTE | 2020-12-02 07:20 | NUR ---
MS RN Closing Notes Patient was last seen awake in bed resting. Patient's alert and oriented x4. Patient's on room air with no respiratory distress noted. Patient has a GEOFF PICC line. Patient's in no acute distress at this time. Safety measures in place: Bed locked, bed alarm on, side rails up x3, and call light within reach of the patient. Will endorse care to the day shift nurse.
[2020-12-02] MEDS: PANTOPRAZOLE 40 MG TABLET.DR PO SCH ×2 (07:30→08:54)
[2020-12-02 08:00] VITALS: BP_SYST 117; BP_DIAS 75; BP_DIAS 78
--- NOTE | 2020-12-02 08:13 | NUR ---
Patient request for pain medication at this time. Will administer prn as indicated. Robert Hanna RN
[2020-12-02] MEDS: RIFAXIMIN 550 MG TABLET PO SCH ×2 (08:54→09:00)
[2020-12-02] MEDS: LACTULOSE 10 G/15 ML UDC (PYXIS) PO SCH ×4 (08:55→17:00)
[2020-12-02] MEDS: MIDODRINE HCL (5MG) 5 MG TABLET PO SCH ×3 (08:56→17:00)
[2020-12-02] MEDS: NEPRO VAN 237 ML CAN PO SCH (08:56)
--- NOTE | 2020-12-02 09:01 | NUR ---
Discussion with patient about pain medication and hospice care. Refuses discussion at this time. Robert Hanna RN
--- NOTE | 2020-12-02 14:44 | NUR ---
INFORMED RN SHAR WILL FOLLOW UP TOMORROW 12/02/20 WITH US GUIDED PARACENTESIS, AT THIS TIME INR IS ELEVATED.
[2020-12-02 16:00] VITALS: BP 108/62
--- NOTE | 2020-12-02 19:56 | NUR ---
RN OPENING NOTES: RECEIVED PATIENT AWAKE IN BED, BED IN LOW POSITION, CALL LIGHTS WITHIN REACH, NO COMPLAIN OF PAIN AND DISCOMFORT AT THIS TIME, PATIENT IS AMB WITH WALKER, ON LEMUS CATHETER WITH 100CC URINE OUTPUT, ON HD DONE TODAY, HD PORT AT RT FEMORAL CATHETER, , PATIENT HAS GEOFF MIDLINE INFUSING WELL ALL NEEDS MET, KEPT CLEAN AND DRY, WILL CONTINUE TO MONITOR.
[2020-12-02 20:32] VITALS: BP 105/59
[2020-12-03] MEDS: HYDROMORPHONE INJ 2 MG/ML DISP.SYRIN IV PRN ×5 (02:51→20:07)
[2020-12-03] MEDS: PIPERACILLIN /TAZOBACTAM 2.25 G in IV D5W 50 ML IV SCH ×3 (03:16→19:49)
[2020-12-03 06:43] LABS: BASOPHILS # (AUTO) 0.2 K/uL (0.0-0.2); BASOPHILS % (AUTO) 1.1 % (0.0-2.0); EOSINOPHILS % (AUTO) 0.7 % (0.0-6.0); HEMOGLOBIN 7.1 g/dL (13.5-17.5); LYMPHOCYTES # (AUTO) 0.8 K/uL (0.8-4.8); LYMPHOCYTES % (AUTO) 3.8 % (20.0-44.0); MEAN CORPUSCULAR HGB CONC 35 g/dl (31.0-36.0); MEAN CORPUSCULAR VOLUME 112 fL (80-96); MONOCYTES # (AUTO) 2.4 K/uL (0.1-1.30); MONOCYTES % (AUTO) 12.2 % (2.0-12.0); NEUTROPHILS # (AUTO) 16.3 K/uL (1.8-8.9); NEUTROPHILS % (AUTO) 82.2 % (43.0-81.0); PLATELET COUNT (AUTO) 86 K/uL (150-450); WHITE BLOOD COUNT (AUTO) 19.8 K/uL (4.3-11.0)
[2020-12-03 06:47] LABS: CALCIUM, SERUM 8.8 mg/dL (8.5-10.1); CREATININE 3.6 mg/dL (0.6-1.3); MAGNESIUM 2.3 mg/dL (1.8-2.4); PHOSPHORUS 5.5 mg/dL (2.5-4.9); POTASSIUM 4.1 mmol/L (3.5-5.1)
--- NOTE | 2020-12-03 07:39 | NUR ---
RN CLOSING NOTES: RECEIVED PATIENT AWAKE IN BED, BED IN LOW POSITION, CALL LIGHTS WITHIN REACH, NO COMPLAIN OF PAIN AND DISCOMFORT AT THIS TIME, PATIENT ON HD WITH RIGHT FEMORAL CATHETER, ON LEMUS CATHETER , ON O2 INHALATIONA AT 2LPM INFUSING WELL, PATIENT IS SCHEDULE FOR PARACENTESIS, CONSENT ENDORSE AND PLACE OIN CHART, ALL NEEDS MET KEPT CLEAN AND DRY, ENDORSE TO INCOMING SHIFT.
[2020-12-03 07:47] LABS: RED BLOOD CELL COUNT(AUTO) 1.82 MIL/uL (4.5-6.0)
[2020-12-03 07:51] LABS: HEMATOCRIT 20 % (39-51)
[2020-12-03 08:00] VITALS: BP 95/57
[2020-12-03] MEDS: LACTULOSE 10 G/15 ML UDC (PYXIS) PO SCH ×4 (09:00→18:31)
[2020-12-03 09:07] LABS: EOSINOPHILS % (MANUAL) 2 % (0-4); LYMPHOCYTES % (MANUAL) 5 % (16-48); MONOCYTES % (MANUAL) 9 % (0-11.0); NEUTROPHILS % (MANUAL) 84 (42-76)
[2020-12-03] MEDS: NEPRO VAN 237 ML CAN PO SCH (09:41)
[2020-12-03] MEDS: RIFAXIMIN 550 MG TABLET PO SCH (10:12)
[2020-12-03] MEDS: PANTOPRAZOLE 40 MG TABLET.DR PO SCH (10:12)
[2020-12-03] MEDS: MIDODRINE HCL (5MG) 5 MG TABLET PO SCH ×3 (10:13→18:32)
--- NOTE | 2020-12-03 12:24 | NUR ---
paracentesis done and 3140 ml removed from [address]. abd.specimen taken to lab for analysis.
[2020-12-03 16:00] VITALS: BP 96/57
--- NOTE | 2020-12-03 16:30 | NUR ---
easily agitated and inappropriate at times.
--- NOTE | 2020-12-03 18:43 | NUR ---
refusing aliza. cephulac at this time.
--- NOTE | 2020-12-03 19:00 | NUR ---
MS RN OPENING NOTES RECEIVE PT AWAKE IN BED AT THIS TIME. AOx 4. ABLE TO VERBALIZE NEEDS. NO S/O OF ANY ACUTE DISTRESS NOTED, DENIES PAIN AT THIS. PT ON 2LP OXYGEN VIA NC. RIGHT FEMORAL CATH IN PLACE, IV ACCESS IN GEOFF MIDLINE SL INTACT AND PATENT AND FLUSHING WELL. LEMUS CATHETER IN PLACE DRAINING TO GRAVITY. SAFETY PRECAUTIONS IN PLACE AND MAINTAINED AT ALL TIMES. BED IN LOWEST LOCKED POSITION, HOB ELEVATED, SIDE RAILS UP X2, CALL LIGHT AND TABLE WITHIN REACH. WILL CONTINUE TO MONITOR
[2020-12-03 20:00] VITALS: BP 95/43
--- NOTE | 2020-12-03 20:07 | NUR ---
PT C/O ACHING 9/10 PAIN ON HIS R U ABDOMEN, PER PT REQUEST DILAUDID 2MG/1ML IV Q4HR PRN ADMINISTERED PER ORDER. WILL CONTINUE TO MONITOR.
[2020-12-04] VITALS (9 sets, daily range): BP systolic 88–111; BP diastolic 43–69
[2020-12-04] MEDS: HYDROMORPHONE INJ 2 MG/ML DISP.SYRIN IV PRN ×6 (00:16→23:07)
--- NOTE | 2020-12-04 00:16 | NUR ---
PT C/O ACHING 9/10 PAIN ON HIS R U ABDOMEN, PER PT REQUEST DILAUDID 2MG/1ML IV Q4HR PRN ADMINISTERED PER ORDER. WILL CONTINUE TO MONITOR.
--- NOTE | 2020-12-04 06:30 | NUR ---
MS RN CLOSING NOTE PT AWAKE AND RESTING IN BED COMFORTABLY AT THIS TIME. PT REMAINED STABLE THROUGHOUT SHIFT. ALL NEEDS, MEDICATIONS, CARE, AND PAIN CONTROL ADMINISTERED ANTICIPATED PER ORDER. PT REPOSITIONED Q2HR AND PRN. IV ACCESS INTACT, PATENT AND FLUSHING. LEMUS CATHETER IN PLACE AND DRAINING TEA COLORED URINE. SAFETY PRECAUTIONS IN LOWEST LOCKED POSITION, HOB ELEVATED, SIDE RAILS UP X2. CALL LIGHT AND TABLE WITHIN REACH. WILL ENDORSE TO DAY SHIFT NURSE FOR LOKESH.
[2020-12-04 07:03] LABS: BASOPHILS # (AUTO) 0.1 K/uL (0.0-0.2); BASOPHILS % (AUTO) 0.4 % (0.0-2.0); LYMPHOCYTES % (AUTO) 5.6 % (20.0-44.0); MEAN CORPUSCULAR HGB CONC 35 g/dl (31.0-36.0); MEAN CORPUSCULAR VOLUME 112 fL (80-96); MONOCYTES # (AUTO) 2.1 K/uL (0.1-1.30); MONOCYTES % (AUTO) 11.2 % (2.0-12.0); NEUTROPHILS # (AUTO) 14.9 K/uL (1.8-8.9); NEUTROPHILS % (AUTO) 80.8 % (43.0-81.0); PLATELET COUNT (AUTO) 101 K/uL (150-450); WHITE BLOOD COUNT (AUTO) 18.5 K/uL (4.3-11.0)
[2020-12-04 07:04] LABS: ALBUMIN 2.6 g/dL (3.4-5.0); BILIRUBIN,TOTAL 11.6 mg/dL (0.2-1.0); CALCIUM, SERUM 8.5 mg/dL (8.5-10.1); CREATININE 4.4 mg/dL (0.6-1.3); MAGNESIUM 2.2 mg/dL (1.8-2.4); PHOSPHORUS 5.1 mg/dL (2.5-4.9); POTASSIUM 4.5 mmol/L (3.5-5.1); TOTAL PROTEIN, SERUM 6.5 g/dL (6.4-8.2)
[2020-12-04 07:09] LABS: HEMATOCRIT 20 % (39-51); RED BLOOD CELL COUNT(AUTO) 1.75 MIL/uL (4.5-6.0)
[2020-12-04 07:15] LABS: HEMOGLOBIN 6.8 g/dL (13.5-17.5)
--- NOTE | 2020-12-04 07:15 | NUR ---
RN OPENING NOTE RECEIVED PATIENT IN BED. A/O X4. ON 2 LPM 02 VIA FL. NO SOB NOTED. IN NO APPARENT DISTRESS. NO REPORTS OF PAIN OR DISCOMFORT AT THIS TIME. IV ACCESS ON GEOFF MIDLINE, INTACT AND PATENT. LEMUS CATHETER IN PLACE, DRAINING TEA COLORED URINE. SAFETY MEASURES MAINTAINED. BED IN LOWEST POSITION, BRAKES LOCKED. SIDE RAILS UP X2. CALL LIGHT WITHIN REACH. WILL CONTINUE PLAN OF CARE.
[2020-12-04] MEDS: RIFAXIMIN 550 MG TABLET PO SCH (08:22)
[2020-12-04] MEDS: LACTULOSE 10 G/15 ML UDC (PYXIS) PO SCH ×3 (08:22→16:19)
[2020-12-04] MEDS: PANTOPRAZOLE 40 MG TABLET.DR PO SCH (08:22)
[2020-12-04] MEDS: MIDODRINE HCL (5MG) 5 MG TABLET PO SCH ×3 (08:23→16:20)
[2020-12-04] MEDS: NEPRO VAN 237 ML CAN PO SCH (08:25)
[2020-12-04 11:28] LABS: EOSINOPHILS % (MANUAL) 4 % (0-4); LYMPHOCYTES % (MANUAL) 5 % (16-48); MONOCYTES % (MANUAL) 11 % (0-11.0); NEUTROPHILS % (MANUAL) 80 (42-76)
--- NOTE | 2020-12-04 11:31 | NUR ---
RN NOTE STARTED BLOOD TRANSFUSION OF 1 UNIT PRBC ON GEOFF MIDLINE AT 1116. NO HEMOLYTIC TRANSFUSION REACTIONS NOTED. WILL CONTINUE TO MONITOR.
--- NOTE | 2020-12-04 14:49 | NUR ---
RN NOTE BLOOD TRANSFUSION ENDED. NO HEMOLYTIC TRANSFUSIONS NOTED AT THE TIME OF INFUSION. VS BP 98/53 TX 82 RR 19 T 97.4 SA02 96%
--- NOTE | 2020-12-04 18:11 | NUR ---
RN CLOSING NOTE PATIENT RESTING IN BED. A/O X4. ON 2 LPM 02 VIA NC. NO SOB NOTED. NO S/S OF RESPIRATORY DISTRESS. IV ACCESS ON GEOFF MIDLINE, INTACT AND PATENT. LEMUS CATHETER IN PLACE, DRAINING TEA COLORED URINE. ALL DUE MEDS GIVEN ORDERED. HEMODIALYSIS ONGOING WITH EUNICE TAPIA. ALL NEEDS HAVE BEEN MET AND ATTENDED. SAFETY MEASURES MAINTAINED. BED IN LOWEST POSITION, BRAKES LOCKED. SIDE RAILS UP X2. KEPT CALL LIGHT WITHIN REACH. WILL ENDORSE CONTINUITY OF CARE TO ONCOMING SHIFT.
--- NOTE | 2020-12-04 19:01 | NUR ---
RN NOTE HEMODIALYSIS DONE. 2500 CC OUTPUT.
--- NOTE | 2020-12-04 19:20 | NUR ---
MS/RN OPENING NOTE RECEIVED PATIENT RESTING IN BED. AWAKE, ALERT AND ORIENTED X 4. ABLE TO MAKE NEEDS KNOWN. DENIES PAIN AT THIS TIME. CONTINUES ON 2L O2 VIA NC WITH NO S/SX OF RESPIRATORY DISTRESS NOTED. IV ACCESS TO RIGHT UPPER ARM MIDLINE #18G INTACT, PATENT AND SALINE LOCKED. PATIENT IS S/P HEMODIALYSIS TODAY WITH 2500CC REMOVED. LEMUS CATHETER IN PLACE DRAINING CLEAR, TEA-COLORED URINE. CALL LIGHT WITHIN REACH. ASPIRATION, FALL AND SAFETY PRECAUTIONS MAINTAINED. WILL CONTINUE TO MONITOR.
[2020-12-05] MEDS: HYDROMORPHONE INJ 2 MG/ML DISP.SYRIN IV PRN ×5 (03:19→20:54)
--- NOTE | 2020-12-05 06:30 | NUR ---
MS/RN CLOSING NOTE PATIENT CURRENTLY SLEEPING IN BED. ALERT AND ORIENTED X 4. ABLE TO MAKE NEEDS KNOWN. DENIES PAIN AT THIS TIME. CONTINUES ON 2L O2 VIA NC WITH NO S/SX OF RESPIRATORY DISTRESS NOTED. IV ACCESS TO RIGHT UPPER ARM MIDLINE #18G INTACT, PATENT AND SALINE LOCKED. HEMODIALYSIS CATH TO RIGHT FEMORAL WITH DRESSING CLEAN, DRY AND INTACT. LEMUS CATHETER IN PLACE DRAINING CLEAR, TEA-COLORED URINE. OUTPUT FOR THIS SHIFT IS 20CC. CALL LIGHT WITHIN REACH. ASPIRATION, FALL AND SAFETY PRECAUTIONS MAINTAINED. WILL ENDORSE PLAN OF CARE TO ONCOMING SHIFT.
--- NOTE | 2020-12-05 07:44 | NUR ---
MS RN OPENING NOTES RECEIVED PATIENT IN BED, AWAKE, A/O X4. PATIENT ON OXYGEN THERAPY AT 2 LPM VIA NASAL CANNULA; BREATHING EVEN AND UNLABORED AT THIS TIME, NO SOB PRESENT. NO COMPLAINS OF PAIN. GEOFF MIDLINE G #18 PRESENT. R FEMORAL HD CATH INTACT. LEMUS CATH PRESENT. SAFETY PRECAUTIONS IN PLACE; BED IN LOW POSITION AND LOCKED, RAILS UP X2, CALL LIGHT WITHIN REACH. WILL CONTINUE TO MONITOR PATIENT.
[2020-12-05 07:48] LABS: ALBUMIN 2.4 g/dL (3.4-5.0); CALCIUM, SERUM 8.2 mg/dL (8.5-10.1); CREATININE 3.9 mg/dL (0.6-1.3); MAGNESIUM 2.2 mg/dL (1.8-2.4); PHOSPHORUS 4.4 mg/dL (2.5-4.9); POTASSIUM 4.3 mmol/L (3.5-5.1); TOTAL PROTEIN, SERUM 6.6 g/dL (6.4-8.2)
[2020-12-05 08:00] VITALS: BP_SYST 131; BP_SYST 97; BP_DIAS 56; BP_DIAS 77
[2020-12-05] MEDS: PANTOPRAZOLE 40 MG TABLET.DR PO SCH (08:08)
[2020-12-05] MEDS: NEPRO VAN 237 ML CAN PO SCH (08:09)
[2020-12-05] MEDS: RIFAXIMIN 550 MG TABLET PO SCH (08:09)
[2020-12-05] MEDS: MIDODRINE HCL (5MG) 5 MG TABLET PO SCH ×4 (08:09→16:19)
[2020-12-05 08:11] LABS: BASOPHILS # (AUTO) 0.1 K/uL (0.0-0.2); BASOPHILS % (AUTO) 0.4 % (0.0-2.0); EOSINOPHILS % (AUTO) 1.4 % (0.0-6.0); HEMATOCRIT 22 % (39-51); HEMOGLOBIN 7.5 g/dL (13.5-17.5); LYMPHOCYTES # (AUTO) 1.2 K/uL (0.8-4.8); LYMPHOCYTES % (AUTO) 6.5 % (20.0-44.0); MEAN CORPUSCULAR HGB CONC 34 g/dl (31.0-36.0); MEAN CORPUSCULAR VOLUME 110 fL (80-96); MONOCYTES # (AUTO) 2.2 K/uL (0.1-1.30); NEUTROPHILS # (AUTO) 14.8 K/uL (1.8-8.9); NEUTROPHILS % (AUTO) 79.7 % (43.0-81.0); PLATELET COUNT (AUTO) 101 K/uL (150-450); WHITE BLOOD COUNT (AUTO) 18.5 K/uL (4.3-11.0)
[2020-12-05 08:13] LABS: RED BLOOD CELL COUNT(AUTO) 1.98 MIL/uL (4.5-6.0)
--- NOTE | 2020-12-05 08:13 | NUR ---
MS RN NOTES PATIENT COMPLAINING OF PAIN 10/10; GENERALIZED. REQUESTING PAIN MEDICATION. PRN DILAUDID IV ADMINISTERED. WILL REASSESS.
[2020-12-05] MEDS: LACTULOSE 10 G/15 ML UDC (PYXIS) PO SCH ×3 (09:00→17:00)
--- NOTE | 2020-12-05 12:21 | NUR ---
MS RN NOTES PATIENT COMPLAINING OF PAIN 9/10; GENERALIZED. REQUESTING PAIN MEDICATION. PRN DILAUDID IV ADMINISTERED. WILL REASSESS.
[2020-12-05] MEDS: PANTOPRAZOLE 40 MG VIAL IV SCH ×2 (13:10→16:19)
--- NOTE | 2020-12-05 16:52 | NUR ---
MS RN NOTES PATIENT COMPLAINING OF PAIN 9/10; GENERALIZED. REQUESTING PAIN MEDICATION. PRN DILAUDID IV ADMINISTERED. WILL REASSESS.
--- NOTE | 2020-12-05 18:30 | NUR ---
MS RN NOTES PATIENT KEPT DELAYING 1700 LACTULOSE SAYING HE DOESN'T WANT IT NOW AND WILL HAVE IT LATER. A FEW MORE TIMES PATIENT WAS ASKED IF HE WANTS THE DOSE. HE SAID NOT NOW. MEDICATION WAS RETURNED.
--- NOTE | 2020-12-05 18:34 | NUR ---
MS RN CLOSING NOTES PATIENT REMAINS IN BED, AWAKE, A/O X4. PATIENT ON OXYGEN THERAPY AT 2 LPM VIA NASAL CANNULA; BREATHING EVEN AND UNLABORED AT THIS TIME, NO SOB DURING SHIFT. PAIN TREATED WITH PRN PAIN MEDICATION DURING THE DAY. GEOFF MIDLINE G #18 PRESENT. R FEMORAL HD CATH INTACT. LEMUS CATH PRESENT WITH A DAILY OUTPUT OF 50 MLS. ALL NEEDS ATTENDED DURING THE DAY. SAFETY PRECAUTIONS IN PLACE; BED IN LOW POSITION AND LOCKED, RAILS UP X2, CALL LIGHT WITHIN REACH. WILL ENDORSE TO BUSINESS MANAGEMENT ANALYST NURSE.
--- NOTE | 2020-12-05 19:00 | NUR ---
RN NOTES: RECEIVED AWAKE ON BED, ON SEMI FOWLERS POSITION, A/OX4, ORIENTED TO UNIT AND STAFF, GEOFF-ML INTACT AND PATENT, HD-RIGHT FEMORAL ACCESS, DRESSING INTATC; ON O2 AT 2L/MIN VIA NC SPO2-96%, LEMUS CATH DRAINING INTO DARK YELLOWISH COLORED URINE AROUND 5CC.ABLE TO MABULATE WITH WALKER. WHILE DOING ROUNDS ALREADY ASKING FOR PAIN MEDICATION EXPLAINED TO HIM HIS NEXT DOSE WILL BE AROUND 2049. FALL SAFETY AND ASPIRATION PRECAUTION OBSERVED, BED LOW AND LOCKED, CALL LIGHT KEPT WITHIN EASY REACH.NO SIGN OF SOB OR RESPIRATORY DISCOMFORT.
[2020-12-05 20:00] VITALS: BP 116/62
--- NOTE | 2020-12-05 20:56 | NUR ---
RN NOTES: HE ASKED FOR HIS PAIN MEDICATION BP-116/62, HE COMPLAINTS OF PAIN 9/10, MEDICATION GIVEN, NON PAHRAMCOLOGIC INTERVENTION RENDERED, KEPT CALL LIGHT WITHIN EASY REACH.
[2020-12-05 21:25] VITALS: BP 116/62
--- NOTE | 2020-12-05 21:56 | NUR ---
RN NOTES: STILL AWAKE, FEELING BETTER, EATING SOME FOOD.NEEDS ATTENDED.
--- NOTE | 2020-12-06 00:33 | NUR ---
RN NOTES: HE HAD BM, AMBULATE IN THE BATHROOM WITH ASSIST, ACTIVITY TOLERATED, PASS MEDIUM AMOUNT OF FORMED STOOL, HE ASKED FOR HIS PAIN MEDICATION I EXPLAINED TO HIM, NOT YET DUE, HE SAID "ILL WAIT".SITTING ON THE CHAIR,KEPT CALL LIGHT WITHIN EASY REACH.
[2020-12-06] MEDS: HYDROMORPHONE INJ 2 MG/ML DISP.SYRIN IV PRN ×6 (00:57→21:02)
--- NOTE | 2020-12-06 01:07 | NUR ---
RN NOTES: PAIN MEDICATION GIVEN PER PATIENT REQUEST, PAIN 10/, HE WAS ASSISTED BACK TO BED, URINE IS TEA COLORED, WITH LITTLE BLOOD STREAK, KEPT MONITORED.KEPT CALL LIGHT WITHIN EASY REACH.
--- NOTE | 2020-12-06 05:29 | NUR ---
RN NOTES: -AWAKE, BLOOD EXTRACTED FOR TEST THROUGH HIS GEOFF-ML, COOPERATIVE, THEN HE ASK FOR HIS PAIN MEDICATION HE VERBALIZED "I HAVE SO MUCH PAIN", PAIN MEDICATION GIVEN. -NON PHARMACOLOGIC INTERVENTION, WARM BLANKET PROVIDED.
[2020-12-06] MEDS ORDERED: ALBUMIN 25% 25 GM in PREMIX 1 EA IV ONE (06:00)
--- NOTE | 2020-12-06 06:03 | NUR ---
RN NOTES: -CALLED PHARMACIST-SPOKE WITH REM, NOTIFIED PATIENT ALBUMIN WILL BE GIVEN 30 MINUTES PRIOR TO DIALYSIS TODAY PER YESTERDAY ENDORSEMENT. -REM/PHARMACIST INSTRUCT TO CALL [phone] 1 HOUR PRIOR TO DIALYSIS SESSION TODAY SO THAT THEY CAN ADJUST THE TIMING OF ALBUMIN ADMINISTRATION.
[2020-12-06 06:54] LABS: BASOPHILS # (AUTO) 0.1 K/uL (0.0-0.2); BASOPHILS % (AUTO) 0.3 % (0.0-2.0); EOSINOPHILS % (AUTO) 1.5 % (0.0-6.0); HEMATOCRIT 22 % (39-51); HEMOGLOBIN 7.6 g/dL (13.5-17.5); LYMPHOCYTES % (AUTO) 5.7 % (20.0-44.0); MEAN CORPUSCULAR HGB CONC 35 g/dl (31.0-36.0); MEAN CORPUSCULAR VOLUME 110 fL (80-96); MONOCYTES # (AUTO) 1.9 K/uL (0.1-1.30); MONOCYTES % (AUTO) 10.4 % (2.0-12.0); NEUTROPHILS # (AUTO) 15.1 K/uL (1.8-8.9); NEUTROPHILS % (AUTO) 82.1 % (43.0-81.0); PLATELET COUNT (AUTO) 102 K/uL (150-450); WHITE BLOOD COUNT (AUTO) 18.4 K/uL (4.3-11.0)
[2020-12-06 07:02] LABS: RED BLOOD CELL COUNT(AUTO) 1.98 MIL/uL (4.5-6.0)
[2020-12-06 07:11] LABS: CALCIUM, SERUM 8.6 mg/dL (8.5-10.1); CREATININE 4.4 mg/dL (0.6-1.3); MAGNESIUM 2.4 mg/dL (1.8-2.4); POTASSIUM 3.6 mmol/L (3.5-5.1)
--- NOTE | 2020-12-06 07:29 | NUR ---
RN NOTES: AWAKE LATEST WEIGHT 223, URINE OUTPUT 200, CONTINUE TO KEPT ON CLOSE WATCH, CALLS AND NEEDS ATTENDED, BLOOD TEST DONE IN HE MORNING,ENDORSE TO NEXT SHIFT REGARDING HIS ALBUMIN PRIOR TO HD.AWAITING FOR HIS BREAKFAST TO BE SERVED.
[2020-12-06 08:00] VITALS: BP 96/54
[2020-12-06] MEDS: NEPRO VAN 237 ML CAN PO SCH (09:00)
[2020-12-06] MEDS: RIFAXIMIN 550 MG TABLET PO SCH (09:25)
[2020-12-06] MEDS: LACTULOSE 10 G/15 ML UDC (PYXIS) PO SCH ×3 (09:25→17:33)
[2020-12-06] MEDS: MIDODRINE HCL (5MG) 5 MG TABLET PO SCH ×3 (09:27→16:41)
[2020-12-06] MEDS: PANTOPRAZOLE 40 MG VIAL IV SCH ×2 (09:30→16:40)
[2020-12-06 16:00] VITALS: BP 105/67
[2020-12-06] MEDS: EPOETIN ALFA (4000 UNIT) 4,000 UNIT/ML VIAL SQ SCH (16:39)
--- NOTE | 2020-12-06 16:44 | NUR ---
RN NOTE; HD DONE WITH 2700 CC OUT. ALBUMIN 25MG ADMINISTERED 30 MIN PRIOR TO DIALYSIS ORDERED.
[2020-12-06 20:00] VITALS: BP 113/61
[2020-12-07] MEDS: HYDROMORPHONE INJ 2 MG/ML DISP.SYRIN IV PRN ×6 (00:59→22:34)
--- NOTE | 2020-12-07 07:26 | NUR ---
MS RN CLOSING NOTE PATIENT A/OX3; ABLE TO MAKE NEEDS KNOWN. ON O2 2LPM via N/C TOLERATING WELL AT WITH SOB AT SPO2 AT 96%. GEOFF MIDLINE S/L PATENT AND INTACT. ADMINISTERED DILAUDID FOR PAIN MANAGEMENT ORDERED THROUGHOUT SHIFT Q4H . F/C DRAINING DARK BROWN COLORED URINE; PATENT AND INTACT. HD CATH TO RIGHT GROIN. VSS. SAFETY MEASURES IN PLACE: BED IN LOWEST LOCKED POSITION, SIDE RAILS UPX2, CALL LIGHT WITHIN EASY REACH, BED ALARMS ON. PATIENT IN STABLE CONDITION, ENDORSED PLAN OF CARE TO ONCOMING MORNING RN.
[2020-12-07 08:00] VITALS: BP 104/57
--- NOTE | 2020-12-07 08:03 | NUR ---
RN OPENING NOTE- RECEIVED PATIENT IN BED, AWAKE, A/O X4. PATIENT ON OXYGEN THERAPY AT 2 LPM VIA NASAL CANNULA; BREATHING EVEN AND UNLABORED AT THIS TIME, NO SOB PRESENT. NO COMPLAINS OF PAIN. GEOFF MIDLINE G #18 PRESENT. R FEMORAL HD CATH INTACT. LEMUS CATH PRESENT. SAFETY PRECAUTIONS IN PLACE; BED IN LOW POSITION AND LOCKED, RAILS UP X2, CALL LIGHT WITHIN REACH. WILL CONTINUE TO MONITOR PATIENT.
[2020-12-07] MEDS: MIDODRINE HCL (5MG) 5 MG TABLET PO SCH ×3 (09:00→17:00)
[2020-12-07] MEDS: LACTULOSE 10 G/15 ML UDC (PYXIS) PO SCH ×3 (09:00→17:00)
[2020-12-07] MEDS: RIFAXIMIN 550 MG TABLET PO SCH (09:18)
[2020-12-07] MEDS: PANTOPRAZOLE 40 MG VIAL IV SCH (09:18)
[2020-12-07] MEDS: NEPRO VAN 237 ML CAN PO SCH (09:24)
--- NOTE | 2020-12-07 11:00 | NUR ---
RN NOTE- DR SONG TO PLACE PERM HD CATH AT 0730 TOMORROW. CALLED AND ORDERED PT NPO AFTER MN EXCEPT RX. BMP, CBC, PT, PTT AT 0500 12/08, TYPE AND SCREEN, AND HAVE 2 U FFP SQE FOR SURGERY AT 0700. COMPLIED. CONSENT PRINTED OUT AND IN CHART ./ NEEDS COMPLETED
[2020-12-07 12:06] LABS: ALBUMIN 2.6 g/dL (3.4-5.0); BILIRUBIN,DIRECT 5.7 mg/dL (0.0-0.2); BILIRUBIN,TOTAL 12.4 mg/dL (0.2-1.0); CALCIUM, SERUM 8.6 mg/dL (8.5-10.1); CREATININE 4.4 mg/dL (0.6-1.3); MAGNESIUM 2.2 mg/dL (1.8-2.4); PHOSPHORUS 4.6 mg/dL (2.5-4.9); POTASSIUM 4.3 mmol/L (3.5-5.1); TOTAL PROTEIN, SERUM 6.6 g/dL (6.4-8.2)
[2020-12-07 12:33] LABS: BASOPHILS # (AUTO) 0.1 K/uL (0.0-0.2); HEMOGLOBIN 7.4 g/dL (13.5-17.5); LYMPHOCYTES # (AUTO) 1.1 K/uL (0.8-4.8)
[2020-12-07 12:59] LABS: BASOPHILS % (AUTO) 0.5 % (0.0-2.0); EOSINOPHILS % (AUTO) 2.3 % (0.0-6.0); HEMATOCRIT 22 % (39-51); LYMPHOCYTES % (AUTO) 6.7 % (20.0-44.0); MEAN CORPUSCULAR HGB CONC 34 g/dl (31.0-36.0); MEAN CORPUSCULAR VOLUME 111 fL (80-96); MONOCYTES # (AUTO) 1.6 K/uL (0.1-1.30); MONOCYTES % (AUTO) 9.4 % (2.0-12.0); NEUTROPHILS # (AUTO) 13.8 K/uL (1.8-8.9); NEUTROPHILS % (AUTO) 81.1 % (43.0-81.0); PLATELET COUNT (AUTO) 98 K/uL (150-450)
[2020-12-07 13:04] LABS: RED BLOOD CELL COUNT(AUTO) 1.96 MIL/uL (4.5-6.0)
[2020-12-07 13:41] LABS: EOSINOPHILS % (MANUAL) 2 % (0-4); LYMPHOCYTES % (MANUAL) 6 % (16-48); MONOCYTES % (MANUAL) 8 % (0-11.0); NEUTROPHILS % (MANUAL) 84 (42-76)
[2020-12-07 16:00] VITALS: BP 98/58
--- NOTE | 2020-12-07 18:36 | NUR ---
RN CLOSING NOTE- PATIENT IN BED, AWAKE, A/O X4. PATIENT ON OXYGEN THERAPY AT 2 LPM VIA NASAL CANNULA; BREATHING EVEN AND NON- LABORED AT THIS TIME, NO SOB PRESENT. PAIN DECREASED W DILAUDID 2 MG IVP. GEOFF MIDLINE G #18 PRESENT. R FEMORAL HD CATH INTACT. LEMUS CATH PRESENT. SAFETY PRECAUTIONS IN PLACE; BED IN LOW POSITION AND LOCKED, RAILS UP X2, CALL LIGHT WITHIN REACH. NPO AFTER MN EXCEPT MEDS. FOR HD PORT PLACEMENT IN AM 8/9 WILL CONTINUE TO MONITOR PATIENT.
--- NOTE | 2020-12-07 19:51 | NUR ---
MS RN CLOSING NOTE PATIENT A/OX4; IN BED; ABLE TO MAKE NEEDS KNOWN. ON O2 2LPM via N/C TOLERATING WELL AT WITH SOB AT SPO2 AT 96%. GEOFF MIDLINE S/L PATENT AND INTACT. F/C DRAINING DARK BROWN COLORED URINE; PATENT AND INTACT. HD CATH TO RIGHT GROIN. VSS. SAFETY MEASURES IN PLACE: BED IN LOWEST LOCKED POSITION, SIDE RAILS UPX2, CALL LIGHT WITHIN EASY REACH, BED ALARMS ON. PATIENT IN STABLE CONDITION, WILL CONT PLAN OF CARE.
[2020-12-07 20:00] VITALS: BP 97/50
--- NOTE | 2020-12-07 20:40 | NUR ---
MS RN NOTE - CONSENT HD EDUCATION PATIENT ABOUT HEMODIALYSIS PERMANENT CATHETER INSERTION; VERBALIZED UNDERSTANDING. PATIENT SIGNED CONSENT FOR PROCEDURE AND BLOOD TRANSFUSION.
[2020-12-07] MEDS: PANTOPRAZOLE 40 MG TABLET.DR PO SCH (21:45)
--- NOTE | 2020-12-08 00:57 | NUR ---
MS RN NOTES RECEIVED REPORT FROM NURSE KENNY FOR CONTINUITY OF CARE .WILL CONTINUE TO MONITOR.
[2020-12-08] MEDS: HYDROMORPHONE INJ 2 MG/ML DISP.SYRIN IV PRN ×5 (02:36→21:28)
[2020-12-08 06:08] LABS: BASOPHILS # (AUTO) 0.1 K/uL (0.0-0.2); BASOPHILS % (AUTO) 0.7 % (0.0-2.0); EOSINOPHILS % (AUTO) 3.2 % (0.0-6.0); HEMATOCRIT 21 % (39-51); HEMOGLOBIN 7.3 g/dL (13.5-17.5); LYMPHOCYTES # (AUTO) 1.6 K/uL (0.8-4.8); LYMPHOCYTES % (AUTO) 9.1 % (20.0-44.0); MEAN CORPUSCULAR HGB CONC 35 g/dl (31.0-36.0); MEAN CORPUSCULAR VOLUME 110 fL (80-96); MONOCYTES # (AUTO) 1.9 K/uL (0.1-1.30); NEUTROPHILS # (AUTO) 13.1 K/uL (1.8-8.9); PLATELET COUNT (AUTO) 93 K/uL (150-450); WHITE BLOOD COUNT (AUTO) 17.3 K/uL (4.3-11.0)
[2020-12-08 06:23] LABS: CALCIUM, SERUM 8.4 mg/dL (8.5-10.1); CREATININE 4.4 mg/dL (0.6-1.3); MAGNESIUM 2.2 mg/dL (1.8-2.4); PHOSPHORUS 4.7 mg/dL (2.5-4.9); POTASSIUM 3.9 mmol/L (3.5-5.1); RED BLOOD CELL COUNT(AUTO) 1.88 MIL/uL (4.5-6.0)
[2020-12-08] MEDS ORDERED: HEPARIN SODIUM, PORCINE 1,000 UNIT/ML VIAL ONE (06:34)
[2020-12-08] MEDS ORDERED: LIDOCAINE 1% INJ 50 ML MDV IJ ONE (06:34)
[2020-12-08] MEDS ORDERED: ANESTHESIA TRAY IN PYXIS 1 EA TRAY MC ONE (06:34)
--- NOTE | 2020-12-08 06:44 | NUR ---
MS RN NOTES PATIENT A/OX4; IN BED; ABLE TO MAKE NEEDS KNOWN. ON O2 2LPM via N/C TOLERATING WELL AT WITH SOB AT SPO2 AT 96%. GEOFF MIDLINE S/L PATENT AND INTACT. F/C DRAINING DARK BROWN COLORED URINE; PATENT AND INTACT. HD CATH TO RIGHT GROIN. VSS. SAFETY MEASURES IN PLACE: BED IN LOWEST LOCKED POSITION, SIDE RAILS UPX2, CALL LIGHT WITHIN EASY REACH, BED ALARMS ON. PATIENT IN STABLE CONDITION FOR HD CATH PLACEMENT THIS MORNING PT HAS BEEN NPO SINCE MIDNIGHT. WILL ENDORSE TO DY SHIFT NURSE.
[2020-12-08 06:52] LABS: BAND % (MANUAL) 1 % (0.0-5.0); EOSINOPHILS % (MANUAL) 2 % (0-4); LYMPHOCYTES % (MANUAL) 9 % (16-48); MONOCYTES % (MANUAL) 8 % (0-11.0); NEUTROPHILS % (MANUAL) 80 (42-76)
[2020-12-08] MEDS ORDERED: SEVOFLURANE 250 ML BOTTLE IH ONE (07:25)
--- NOTE | 2020-12-08 08:00 | NUR ---
MS RN OPENING NOTE RECEIVED REPORT FOR PATIENT - CURRENTLY IN OR FOR HD CATH PLACEMENT.
[2020-12-08] MEDS: NEPRO VAN 237 ML CAN PO SCH (09:00)
[2020-12-08] MEDS: MIDODRINE HCL (5MG) 5 MG TABLET PO SCH ×3 (09:21→16:44)
[2020-12-08] MEDS: PANTOPRAZOLE 40 MG TABLET.DR PO SCH ×2 (09:22→21:09)
[2020-12-08] MEDS: LACTULOSE 10 G/15 ML UDC (PYXIS) PO SCH ×3 (09:22→16:45)
[2020-12-08] MEDS: RIFAXIMIN 550 MG TABLET PO SCH (09:22)
[2020-12-08 09:30] VITALS: BP 107/60
--- NOTE | 2020-12-08 09:30 | NUR ---
MS RN NOTE RECEIVED PATIENT FROM OR. STABLE, A/O X4. ON 2L O2 VIA NASAL CANNULA - TOLERATING WELL. NO SOB, NO DISTRESS/DISCOMFORT NOTED. RIGHT FEMORAL/GROIN CATH REMOVED - DRESSING NOTE - CLEAN AND DRY. PATIENT HAS A NEW HD CATH PLACED IN THE RIGHT CHEST WALL. IV ACCESS TO RIGHT UPPER ARM - MIDLINE - S/L. LEMUS CATHETER NOTED - INTACT AND IN PLACE - DRAINING DARK RED COLORED URINE WITH SEDIMENTS. VITALS STABLE. SAFETY MEASURES IN PLACE. CALL LIGHT WITHIN REACH. WILL CONTINUE TO MONITOR.
[2020-12-08 16:00] VITALS: BP 111/58
--- NOTE | 2020-12-08 18:50 | NUR ---
MS NET WPF DEVELOPER NOTE PATIENT CURRENTLY LYING IN BED, AWAKE, WATCHING TV. A/O X4. ON 2L O2 VIA NASAL CANNULA - TOLERATING WELL. NO SOB, NO DISTRESS/DISCOMFORT NOTED. LAST PAIN MEDICATION GIVEN @ 1720 - DILAUDID 2MG IV. S/P HD CATH PLACEMENT IN RIGHT CHEST WALL. IV ACCESS TO RIGHT UPPER ARM - MIDLINE - S/L. LEMUS CATHETER NOTED - INTACT AND IN PLACE - DRAINING DARK RED COLORED URINE WITH SEDIMENTS. SAFETY MEASURES IN PLACE. CALL LIGHT WITHIN REACH. WILL ENDORSE TO DENTAL HYGIENE ADMINISTRATIVE ASSISTANT NURSE FOR LOKESH. Addendum: 12/08/20 at 1850 by OLIVIER ZAMORA RN CLOSING NOTE, NOT DISCHARGE NOTE
--- NOTE | 2020-12-08 19:32 | NUR ---
MS RN Opening Notes Patient was last seen sleeping in bed. Patient's alert and oriented x4. Patient's on 2 liters of oxygen/minute via nasal cannula with no respiratory distress noted. Patient has a GEOFF PICC line. Patient's in no acute distress at this time. Safety measures in place: Bed locked, bed alarm on, side rails up x3, and call light within reach of the patient. Will continue to monitor the patient.
[2020-12-08 20:00] VITALS: BP 113/63
--- NOTE | 2020-12-08 21:28 | NUR ---
MS RN Notes Patient was given 2 mg of Dilaudid IV for 9/10 pain in the neck. Will continue to monitor the patient.
[2020-12-09] MEDS: HYDROMORPHONE INJ 2 MG/ML DISP.SYRIN IV PRN ×5 (01:47→20:33)
[2020-12-09 06:56] LABS: BASOPHILS # (AUTO) 0.1 K/uL (0.0-0.2); EOSINOPHILS % (AUTO) 2.8 % (0.0-6.0); HEMATOCRIT 22 % (39-51); HEMOGLOBIN 7.7 g/dL (13.5-17.5); LYMPHOCYTES # (AUTO) 1.3 K/uL (0.8-4.8); LYMPHOCYTES % (AUTO) 9.1 % (20.0-44.0); MEAN CORPUSCULAR HGB CONC 35 g/dl (31.0-36.0); MEAN CORPUSCULAR VOLUME 111 fL (80-96); MONOCYTES # (AUTO) 1.4 K/uL (0.1-1.30); MONOCYTES % (AUTO) 9.7 % (2.0-12.0); NEUTROPHILS # (AUTO) 11.3 K/uL (1.8-8.9); NEUTROPHILS % (AUTO) 77.4 % (43.0-81.0); WHITE BLOOD COUNT (AUTO) 14.5 K/uL (4.3-11.0)
[2020-12-09 07:05] LABS: RED BLOOD CELL COUNT(AUTO) 1.98 MIL/uL (4.5-6.0)
[2020-12-09 07:11] LABS: CALCIUM, SERUM 8.9 mg/dL (8.5-10.1); CREATININE 5.2 mg/dL (0.6-1.3); MAGNESIUM 2.5 mg/dL (1.8-2.4); PHOSPHORUS 5.6 mg/dL (2.5-4.9); POTASSIUM 4.2 mmol/L (3.5-5.1)
--- NOTE | 2020-12-09 07:50 | NUR ---
MS RN NOTE REPORT RECEIVED, ASSESSMENT COMPLETE. RECEIVED PT LYING IN BED. NO ACUTE DISTRESS NOTED. STABLE, A/O X4. ON 2L O2 VIA NASAL CANNULA WITH O2 SAT 98%. - HD CATH IN THE RIGHT CHEST WALL. RIGHT UPPER ARM MIDLINE PATENT AND SALINE LOCKED. LEMUS CATHETER NOTED ns DRAINING DARK BROQN COLORED URINE WITH SEDIMENTS. VITALS STABLE. BED IN LOW AND LOCKED POSITION. CALL LIGHT WITHIN REACH. WILL CONTINUE TO MONITOR.
[2020-12-09 08:20] VITALS: BP 102/60
[2020-12-09] MEDS: MIDODRINE HCL (5MG) 5 MG TABLET PO SCH ×3 (09:00→16:20)
[2020-12-09] MEDS: LACTULOSE 10 G/15 ML UDC (PYXIS) PO SCH ×3 (09:31→16:20)
[2020-12-09] MEDS: RIFAXIMIN 550 MG TABLET PO SCH (09:33)
[2020-12-09] MEDS: PANTOPRAZOLE 40 MG TABLET.DR PO SCH ×2 (09:33→20:33)
[2020-12-09] MEDS: NEPRO VAN 237 ML CAN PO SCH (09:33)
--- NOTE | 2020-12-09 10:28 | NUR ---
RN NOTE: PAIN PT C/O 01/09 NECK PAIN. REQUESTING PAIN MEDICATION. MEDICATED WITH DILAUDID 2MG IVP.
--- NOTE | 2020-12-09 14:56 | NUR ---
RN NOTE: PAIN PT C/O 01/09 GENERALIZED PAIN. REQUESTING PAIN MEDICATION. MEDICATED WITH DILAUDID 2MG IVP
[2020-12-09 15:48] LABS: BAND % (MANUAL) 3 % (0.0-5.0); EOSINOPHILS % (MANUAL) 3 % (0-4); LYMPHOCYTES % (MANUAL) 4 % (16-48); MONOCYTES % (MANUAL) 6 % (0-11.0); NEUTROPHILS % (MANUAL) 84 (42-76); PLATELET COUNT (AUTO) 115 K/uL (150-450)
[2020-12-09] MEDS: EPOETIN ALFA (4000 UNIT) 4,000 UNIT/ML VIAL SQ SCH (16:15)
[2020-12-09 16:34] VITALS: BP 94/52
--- NOTE | 2020-12-09 18:15 | NUR ---
RN NOTE: DIALYSIS NURSE AT BEDSIDE.
--- NOTE | 2020-12-09 19:30 | NUR ---
RN OPENING NOTE PATIENT IS IN BED, AWAKE. A/O X 3. PATIENT IS CURRENTLY HAVING DIALYSIS. PATIENT HAS O2 SUPPLEMENTATION PRESENT AT 2L, SATTING 98%. PATIENT NOT IN ANY DISTRESS. LEMUS CATHETER I PLACE DRAINING DARK BROWN URINE. SAFETY MEASURES IN PLACE: BED LOCKED AND IN LOWEST POSITION, CALL LIGHT WITHIN REACH, SIDE RAILS UP. WILL MONITOR CLOSELY.
[2020-12-09 20:00] VITALS: BP 100/61
--- NOTE | 2020-12-09 20:30 | NUR ---
RN NOTE HD COMPLETE 2800 OUTPUT
--- NOTE | 2020-12-09 20:33 | NUR ---
RN NOTE DILAUDID 2 MG GIVEN FOR GENERALIZED PAIN 02/08, WILL REASSESS EFFECTIVENESS.
[2020-12-10] VITALS (7 sets, daily range): BP systolic 97–98; BP diastolic 54–58
[2020-12-10] MEDS: HYDROMORPHONE INJ 2 MG/ML DISP.SYRIN IV PRN ×5 (00:40→17:44)
--- NOTE | 2020-12-10 00:40 | NUR ---
RN NOTE DILAUDID 2 MG GIVEN FOR GENERALIZED PAIN 02/08, WILL REASSESS EFFECTIVENESS.
--- NOTE | 2020-12-10 04:59 | NUR ---
RN NOTE DILAUDID 2 MG GIVEN FOR GENERALIZED PAIN 02/08, WILL REASSESS EFFECTIVENESS.
[2020-12-10 06:45] LABS: CALCIUM, SERUM 8.5 mg/dL (8.5-10.1); CREATININE 4.1 mg/dL (0.6-1.3); MAGNESIUM 2.2 mg/dL (1.8-2.4); POTASSIUM 3.9 mmol/L (3.5-5.1)
--- NOTE | 2020-12-10 06:58 | NUR ---
RN CLOSING NOTE PATIENT IN BED, EYES CLOSED. PATIENT IS ABLE TO MAKE NEEDS KNOWN. GEOFF MIDLINE PATENT AND INTACT. BREATHING EVEN AND UNLABORED. SAFETY MEASURES IMPLEMENTED. ALL ORDERS CARRIED OUT. ALL NEEDS MET AND ATTENDED. WILL ENDORSE TO DAY SHIFT NURSE FOR LOKESH.
--- NOTE | 2020-12-10 07:26 | NUR ---
MS RN OPENING NOTES RECEIVED PATIENT AWAKE IN BED IN NO ACUTE SIGNS OF DISTRESS. A/O X 4. ABLE TO MAKE NEEDS KNOWN, DNIES PAIN OR ANY DISCOMFORTS AT THIS TIME. ON 02 VIA N/C AT 2LPM, TOLERATING WELL WITH NO SOB NOTED. GEOFF MIDLINE IN PLACE AND FLUSHES WELL. PT HAD RCW PERMCATH INTACT WITH DRESSING C/D/I. LEMUS CATHETER IN PLACE DRAINING DARK BROWN URINE VIA GRAVITY. SAFETY MEASURES IN PLACE: BED LOCKED AND IN LOWEST POSITION, CALL LIGHT WITHIN REACH, SIDE RAILS UP X2. WILL MONITOR PT ACCORDINGLY.
[2020-12-10 07:47] LABS: BASOPHILS # (AUTO) 0.1 K/uL (0.0-0.2); BASOPHILS % (AUTO) 0.4 % (0.0-2.0); EOSINOPHILS % (AUTO) 1.6 % (0.0-6.0); LYMPHOCYTES # (AUTO) 0.8 K/uL (0.8-4.8); LYMPHOCYTES % (AUTO) 5.3 % (20.0-44.0); MEAN CORPUSCULAR HGB CONC 35 g/dl (31.0-36.0); MEAN CORPUSCULAR VOLUME 112 fL (80-96); MONOCYTES # (AUTO) 1.3 K/uL (0.1-1.30); MONOCYTES % (AUTO) 9.2 % (2.0-12.0); NEUTROPHILS % (AUTO) 83.5 % (43.0-81.0); PLATELET COUNT (AUTO) 58 K/uL (150-450); WHITE BLOOD COUNT (AUTO) 14.3 K/uL (4.3-11.0)
[2020-12-10 07:49] LABS: RED BLOOD CELL COUNT(AUTO) 1.72 MIL/uL (4.5-6.0)
[2020-12-10 07:53] LABS: HEMATOCRIT 19 % (39-51); HEMOGLOBIN 6.7 g/dL (13.5-17.5)
[2020-12-10] MEDS: LACTULOSE 10 G/15 ML UDC (PYXIS) PO SCH ×3 (08:47→17:22)
[2020-12-10] MEDS: PANTOPRAZOLE 40 MG TABLET.DR PO SCH (08:48)
[2020-12-10] MEDS: MIDODRINE HCL (5MG) 5 MG TABLET PO SCH ×3 (08:48→17:21)
[2020-12-10] MEDS: NEPRO VAN 237 ML CAN PO SCH (08:49)
[2020-12-10] MEDS: RIFAXIMIN 550 MG TABLET PO SCH (08:49)
--- NOTE | 2020-12-10 09:29 | NUR ---
RN NOTES PT C/O GENERALIZED PAIN , 10/10 SCALE. PRN DILAUDID 2MG/ML IVP ADMINISTRED AT 0926. WILL CONTINUE TO MONITOR AND REASSESS PT.
[2020-12-10 10:28] LABS: EOSINOPHILS % (MANUAL) 1 % (0-4); LYMPHOCYTES % (MANUAL) 5 % (16-48); MONOCYTES % (MANUAL) 8 % (0-11.0); NEUTROPHILS % (MANUAL) 86 (42-76)
--- NOTE | 2020-12-10 14:02 | NUR ---
RN NOTES LEMUS CATHETER REMOVED PER MD ORDER W/O ANY PROBLEM. WILL MONITOR PT FOR VOIDING.
--- NOTE | 2020-12-10 17:47 | NUR ---
RN NOTES PT C/O GENERALIZED PAIN , 9/10 SCALE. PRN DILAUDID 2MG/ML IVP ADMINISTERED AT 1744. WILL CONTINUE TO MONITOR AND REASSESS PT.
--- NOTE | 2020-12-10 18:39 | NUR ---
MS RN CLOSING NOTES PATIENT IN BED WATCHING TV ART THIS TIME. HOB ELEVATED. A/O X 4. ABLE TO MAKE NEEDS KNOWN. PT FOR DISCHARGE TO [facility], P/U TIME IS 2000 BY FOREIGN. CALLED AND REPORT GIVEN TO EUNICE BECERRA. ON 02 VIA N/C AT 2LPM, TOLERATING WELL WITH NO SOB NOTED DURING SHIFT. GEOFF MIDLINE IN PLACE AND FLUSHES WELL. RCW PERMCATH INTACT WITH DRESSING C/D/I. ALL NEEDS NAND CARE ATTENDED WELL. SAFETY MEASURES IN PLACE: BED LOCKED AND IN LOWEST POSITION, CALL LIGHT WITHIN REACH, SIDE RAILS UP X2. WILL ENDORSE PLAN OF CARE TO JOB TRAINING SUPERVISOR NURSE..
--- NOTE | 2020-12-10 20:02 | NUR ---
RN OPENING RECEIVED PATIENT IN BED. A/OX4. NO S/S OF APPARENT DISTRESS IN 2LPM O2 VIA NC. NO C/O PAIN AT THIS TIME. NO FLUIDS RUNNING AT THIS TIME. PATIENT JAUNDICED. SAFETY IN PLACE. WILL CONTINUE TO MONITOR.
--- NOTE | 2020-12-10 20:41 | NUR ---
MS COGNOS DEVELOPER NOTES PATIENT TAKEN DOWN BY EMT A/OX4. NO S/S OF APPARENT DISTRESS. PAIN MANAGED WITH MEDICATIONS. BELONGINGS SIGNED FOR. IV MIDLINE TAKEN OFF. ID BAND DISCARDED. REPORT AND PATIENT PACKET GIVEN TO EMT.
== END 2020-12-10 20:40 | DRG 720 ==
LOC: ER 13:39 → MEDSG1 21:34 → MED 11-28 16:57
PROVIDERS: ADMIT Internal Medicine
PROC: 0W9G3ZZ Drainage of Peritoneal Cavity, Percutaneous Approach (ICD-10-PCS; principal; 2020-11-21)
PROC: 05HB33Z Insertion of Infusion Device into Right Basilic Vein, Percutaneous Approach (ICD-10-PCS; 2020-11-22)
PROC: 06HY33Z Insertion of Infusion Device into Lower Vein, Percutaneous Approach (ICD-10-PCS; 2020-11-22)
PROC: 0W993ZZ Drainage of Right Pleural Cavity, Percutaneous Approach (ICD-10-PCS; 2020-11-25)
PROC: 5A1D70Z Performance of Urinary Filtration, Intermittent, Less than 6 Hours Per Day (ICD-10-PCS; 2020-11-28)
PROC: 0JHD3XZ Insertion of Tunneled Vascular Access Device into Right Upper Arm Subcutaneous Tissue and Fascia, Percutaneous Approach (ICD-10-PCS; 2020-12-08)
PROC: 05HM33Z Insertion of Infusion Device into Right Internal Jugular Vein, Percutaneous Approach (ICD-10-PCS; 2020-12-08)
PROC: B513YZA Fluoroscopy of Right Jugular Veins using Other Contrast, Guidance (ICD-10-PCS; 2020-12-08)
DX: A41.9 Sepsis, unspecified organism (principal); N17.0 Acute kidney failure with tubular necrosis; K76.7 Hepatorenal syndrome; I13.2 Hypertensive heart and chronic kidney disease with heart failure and with stage 5 chronic kidney disease, or end stage renal disease; J90 Pleural effusion, not elsewhere classified; E87.2 Acidosis; C22.0 Liver cell carcinoma; K65.2 Spontaneous bacterial peritonitis; E83.39 Other disorders of phosphorus metabolism; R18.8 Other ascites; E11.22 Type 2 diabetes mellitus with diabetic chronic kidney disease; I50.9 Heart failure, unspecified; D53.9 Nutritional anemia, unspecified; K81.0 Acute cholecystitis; K70.40 Alcoholic hepatic failure without coma; E87.1 Hypo-osmolality and hyponatremia; I25.10 Atherosclerotic heart disease of native coronary artery without angina pectoris; K74.60 Unspecified cirrhosis of liver; Z79.899 Other long term (current) drug therapy; Z20.822 Contact with and (suspected) exposure to COVID-19; E66.9 Obesity, unspecified; Z68.34 Body mass index [BMI] 34.0-34.9, adult; E83.41 Hypermagnesemia; E88.09 Other disorders of plasma-protein metabolism, not elsewhere classified; G89.4 Chronic pain syndrome; B19.20 Unspecified viral hepatitis C without hepatic coma; N18.6 End stage renal disease; Z76.82 Awaiting organ transplant status; Z99.2 Dependence on renal dialysis; J98.11 Atelectasis; D68.4 Acquired coagulation factor deficiency
CPT/HCPCS: 36410; 36415; 71045-TC; 76700-TC; 76770-TC; 76942-TC; 78226; 80048-TC; 80053-TC; 80061-TC; 80076-TC; 81001; 82040-TC; 82550-TC; 82962-TC; 83605-TC; 83690-TC; 83735-TC; 83970; 84100-TC; 84155; 84155-TC; 84165; 85025-TC; 85610-TC; 85730-TC; 86704; 86705; 86706; 86850-TC; 87040-TC; 87070-TC; 87081-TC; 87086-TC; 87340; 88108-TC; 88305-TC; 89051-TC; 90935-TC; 93307-TC; 94799-TC; A4216; A9537; C1750; C1757; C1769; C1894; C9113; C9803; G0378; J0690; J0696; J0885; J1170; J1644; J1940; J2270; J2354; J2405; J2543; J2704; J3430; J3490; J7030; J7040; J7050; J7060; J7120; P9016; P9017; P9047

== ENCOUNTER 2020-12-30 19:26 | Inpatient (IN) | payer OTHER ==
[~2020-12-30] VITALS: Ht 170.2 cm; Wt 94.3 kg
[~2020-12-30 19:26] MED LIST changes: +ACET325T53 PO; +ASCO500C17 PO; -BUME1TAB8 PO; +FURO-144 PO; +LACT10SO3 PO; +MAGN400O6 PO; +MELA5TAB PO; +MULT-188 PO; +NA P133E RC; +OMEP40CA21 PO; +ONDA4TAB11 PO; +OXYC10TA49 PO; +RIFA550T PO; +TRAM50TA2 PO
--- NOTE | 2020-12-30 20:30 | NUR ---
COVID SWAB COLLECTED AND SENT TO LAB
[2020-12-30 20:45] LABS: BASOPHILS # (AUTO) 0.1 K/uL (0.0-0.2); BASOPHILS % (AUTO) 0.4 % (0.0-2.0); EOSINOPHILS % (AUTO) 0.1 % (0.0-6.0); LYMPHOCYTES % (AUTO) 5.4 % (20.0-44.0); MEAN CORPUSCULAR HGB CONC 34 g/dl (31.0-36.0); MEAN CORPUSCULAR VOLUME 113 fL (80-96); MONOCYTES # (AUTO) 1.7 K/uL (0.1-1.30); MONOCYTES % (AUTO) 9.5 % (2.0-12.0); NEUTROPHILS # (AUTO) 15.6 K/uL (1.8-8.9); NEUTROPHILS % (AUTO) 84.6 % (43.0-81.0); PLATELET COUNT (AUTO) 130 K/uL (150-450); WHITE BLOOD COUNT (AUTO) 18.5 K/uL (4.3-11.0)
[2020-12-30 20:47] LABS: RED BLOOD CELL COUNT(AUTO) 1.55 MIL/uL (4.5-6.0)
[2020-12-30 20:48] LABS: HEMATOCRIT 18 % (39-51); HEMOGLOBIN 5.9 g/dL (13.5-17.5)
--- NOTE | 2020-12-30 20:48 | NUR ---
H.9 Ht: 18
[2020-12-30 20:58] LABS: CALCIUM, SERUM 8.4 mg/dL (8.5-10.1); CARBON DIOXIDE 19 mmol/L (21-32); CHLORIDE 101 mmol/L (98-107); GLUCOSE 85 mg/dL (74-106); POTASSIUM 3.8 mmol/L (3.5-5.1); SODIUM SERUM 135 mmol/L (136-145); UREA NITROGEN, BLOOD 55 mg/dL (7-18)
[2020-12-30 21:04] LABS: ALANINE AMINOTRANSFERASE 25 U/L (12-78); ALBUMIN 1.9 g/dL (3.4-5.0); ALKALINE PHOSPHATASE 89 U/L (46-116); ASPARTATE AMINOTRANSFERASE 62 U/L (15-37); BILIRUBIN,DIRECT 7.1 mg/dL (0.0-0.2); BILIRUBIN,TOTAL 12.7 mg/dL (0.2-1.0); TOTAL PROTEIN, SERUM 6.6 g/dL (6.4-8.2)
[2020-12-30 21:11] LABS: MAGNESIUM 2.3 mg/dL (1.8-2.4)
--- NOTE | 2020-12-30 21:11 | NUR ---
DR GRAF NOTIFIED REGARDING CRITICAL LAB: HGB, HCT
--- NOTE | 2020-12-30 21:11 | NUR ---
pt to ct via giorgio
[2020-12-30 21:22] LABS: BAND % (MANUAL) 8 % (0.0-5.0); LYMPHOCYTES % (MANUAL) 8 % (16-48); MONOCYTES % (MANUAL) 12 % (0-11.0); NEUTROPHILS % (MANUAL) 72 (42-76)
[2020-12-30] MEDS ORDERED: VANCOMYCIN 1 GM in IV D5W 250 ML IV ONE (21:30)
[2020-12-30] MEDS ORDERED: CEFTRIAXONE 1GM BAG (ER ONLY) 100 ML IV ONE (21:30)
[2020-12-30] MEDS ORDERED: CEFTRIAXONE 2 G in IV D5W 100 ML IV SCH (21:30)
[2020-12-30] MEDS ORDERED: VANCOMYCIN 1 GM VIAL ONE (21:30)
--- NOTE | 2020-12-30 21:30 | NUR ---
IV LINE ESTABLISHED AT RAC 20G.
--- NOTE | 2020-12-30 21:30 | NUR ---
NOTED IV LINE AT R AC INFILTRATED. IV CATH REMOVED. BENIGN, NO BLEEDING NOTED. ATTEMPTED TO ESTABLISH ANOTHER IV LINE MULTIPLE TIMES, HOWEVER, PT IS HARD STICK. SEASONAL DRIVER AND AWARE. ORDER RECEIVED FOR PICC LINE INSERTION.
[2020-12-30] MEDS ORDERED: LACTULOSE 10 G/15 ML UDC (PYXIS) PO ONE (22:00)
[2020-12-30] MEDS ORDERED: ONDANSETRON HCL/PF 4 MG/2 ML VIAL IVP PRN (22:30)
[2020-12-30] MEDS ORDERED: ZOLPIDEM TARTRATE 5 MG TABLET PO PRN (22:30)
[2020-12-30] MEDS ORDERED: LACTULOSE 10 G/15 ML UDC (PYXIS) ONE (23:10)
--- NOTE | 2020-12-30 23:42 | NUR ---
TELEPHONE CALL FROM [facility], RELAYED CRITICAL LAB OF 3.[address] CASAREZ NOTIFIED
[2020-12-31] VITALS (10 sets, daily range): BP systolic 115–124; BP diastolic 62–79
[2020-12-31] MEDS ORDERED: PIPERACILLIN /TAZOBACTAM 3.375 G in IV D5W 50 ML IV ONE (00:30)
--- NOTE | 2020-12-31 01:30 | NUR ---
IV LINE RE-ESTABLISHED AT EVA 20G USING ULTRASOUND GUIDANCE. PATENT AND FLUSHING.
--- NOTE | 2020-12-31 01:50 | NUR ---
IV LINE AT EVA DISLODGED. HOME CARE ASSISTANT, FISH DRESSING MACHINE FEEDER AWARE.
--- NOTE | 2020-12-31 02:10 | NUR ---
REPORT GIVEN TO ROBIN DAWSON, PT TRANSFERRED TO TELE RM 101 VIA [place] ACCOMPANIED BY RN AND EMT, IN STABLE CONDITION.
[2020-12-31 03:00] LABS: BASOPHILS # (AUTO) 0.1 K/uL (0.0-0.2); BASOPHILS % (AUTO) 0.8 % (0.0-2.0); EOSINOPHILS % (AUTO) 0.1 % (0.0-6.0); LYMPHOCYTES % (AUTO) 6.1 % (20.0-44.0); MEAN CORPUSCULAR HGB CONC 34 g/dl (31.0-36.0); MEAN CORPUSCULAR VOLUME 113 fL (80-96); MONOCYTES # (AUTO) 1.4 K/uL (0.1-1.30); MONOCYTES % (AUTO) 8.2 % (2.0-12.0); NEUTROPHILS # (AUTO) 14.6 K/uL (1.8-8.9); NEUTROPHILS % (AUTO) 84.8 % (43.0-81.0); PLATELET COUNT (AUTO) 137 K/uL (150-450); WHITE BLOOD COUNT (AUTO) 17.3 K/uL (4.3-11.0)
[2020-12-31 03:01] LABS: HEMATOCRIT 18 % (39-51); RED BLOOD CELL COUNT(AUTO) 1.55 MIL/uL (4.5-6.0)
[2020-12-31 03:17] LABS: BILIRUBIN,TOTAL 12.9 mg/dL (0.2-1.0); CALCIUM, SERUM 8.4 mg/dL (8.5-10.1); CREATININE 5.2 mg/dL (0.6-1.3); HEMOGLOBIN 5.9 g/dL (13.5-17.5); POTASSIUM 3.5 mmol/L (3.5-5.1); TOTAL PROTEIN, SERUM 6.5 g/dL (6.4-8.2)
--- NOTE | 2020-12-31 03:30 | NUR ---
3106 PAGED BAILING MACHINE OPERATOR ANTHONY TO NOTIFY OF FAILED ATTEMPTS TO PLACE PERIPHERAL IV ACCESS, UNABLE TO START BLOOD TRANSFUSION DUE TO NO IV ACCESS. AWAITING CALL BACK.
--- NOTE | 2020-12-31 03:43 | NUR ---
RN NOTES 0200 RECEIVED PT FROM ER, ADMITTED FOR GI BLEED AND ENCEPHALOPATHY. PT CONFUSED, ONLY SAYING CURSE WORDS. UNABLE TO OBTAIN ANY INFORMATION. HOOKED TO TELE MONITOR SHOWS SR. NO S/SX OF DISTRESS NOTED. PT WITH HD CATH ON RIGHT CHEST. PT FOR BLOOD TRANSFUSION, WITH DUE IV ATB, UNABLE TO GIVE AT THIS TIME DUE NO IV LINE, TRIED MULTIPLE TIMES FOR IV INSERTION WITH HELP FROM CHARGE NURSE. PAGED SANDER PORTABLE MACHINE DRY CLEANING CHECKER ANTHONY TO NOTIFY, AWAITING FOR CALL BACK. PT WITH SCATTERED BRUISES ON R&L ARM AND RIGHT LATERAL CHEST. OPEN WOUND ON SACRUM. BILATERAL LEGS W/ WEEPING EDEMA AND OPEN WOUNDS. AND REDNESS NOTED ON BILATERAL HEELS. NO ACTIVE BLEEDING WERE NOTED. BP 112/60 T 97.7 HR 85 RR 18 02 SAT 100% ON RA. ALL SAFETY MEASURES IN PLACE PER PROTOCOL. WILL CONTINUE TO MONITOR.
[2020-12-31 03:52] LABS: BASOPHILS % (MANUAL) 0 % (0.0-2.0); EOSINOPHILS % (MANUAL) 0 % (0-4); LYMPHOCYTES % (MANUAL) 6 % (16-48); MONOCYTES % (MANUAL) 6 % (0-11.0); NEUTROPHILS % (MANUAL) 88 (42-76)
--- NOTE | 2020-12-31 04:00 | NUR ---
0400 NO CALL BACK FROM GIANCARLO CRUZ. PAGED AGAIN AT THIS TIME.
--- NOTE | 2020-12-31 04:15 | NUR ---
0415 GIANCARLO CRUZ CALLED BACK AND MADE AWARE BLOOD TRANSFUSION NOT STARTED DUE TO NO ACCESS.
--- NOTE | 2020-12-31 04:32 | NUR ---
RN NOTE PT REMOVING LINES OF TELE MONITOR, REMOVING GOWN. CHARGE NURSE NOTIFIED DECKHAND CRAB BOAT ANTHONY, OBTAINED ORDER FOR RESTRAINTS.
--- NOTE | 2020-12-31 07:15 | NUR ---
RN NOTE PT SLEEPING, AROUSES EASILY, STILL CONFUSED UNABLE TO COMMUNICATE NEEDS. PT STILL HAS NO IV ACCESS LINE, NO S/SX OF BLEEDING NOTED. PT AFEBRILE. CONTINUE ON RESTRAINTS. NO SKIN BREAKDOWN NOTED WITH GOOD CIRCULATION. ENDORSED TOO NEXT SHIFT NURSE FOR LOKESH.
--- NOTE | 2020-12-31 07:15 | NUR ---
RN OPENING NOTES RECEIVED PT IN BED. CONFUSED. STABLE ON ROOM AIR. NO SOB OR ANY RESPIRATORY DISTRESS NOTED. NO IV ACCESS. SR ON TELE MONITOR. BILATERAL SOFT RESTRAINTS NOTED. CHECKED FOR CIRCULATION. NPO. SAFETY MEASURES IMPLEMENTED. CALL LIGHT WITHIN REACH. BED LOCKED AND IN LOWEST POSITION WITH SIDE RAILS UP X3. WILL CONTINUE TO MONITOR.
[2020-12-31] MEDS ORDERED: SEVE800T28 PO (07:49)
[2020-12-31] MEDS ORDERED: FOLI0.8T2 PO (07:49)
[2020-12-31] MEDS ORDERED: PANT40TA2 PO (07:49)
[2020-12-31] MEDS ORDERED: MIDO10TA PO (07:49)
[2020-12-31] MEDS ORDERED: VANCOMYCIN 500 MG in IV D5W 100 ML IV PRN (08:00)
[2020-12-31] MEDS: FAMOTIDINE (20 MG) 20 MG TABLET PO SCH ×2 (09:00→21:00)
[2020-12-31] MEDS: LACTULOSE 10 G/15 ML UDC (PYXIS) PO SCH ×2 (09:00→17:00)
--- NOTE | 2020-12-31 09:01 | NUR ---
WOUND CARE CONSULT: REVIEWED CHART, NURSING DOCUMENTATION AND PHOTOS WHICH INDICATE DISCOLORATIONS TO UPPER AND LOWER EXTREMITIES WITH WOUNDS TO SACRUM AND LOWER EXTREMITIES, PRESENT ON ADMISSION. PER SENDING FACILITY, SACRAL STAGE 3 ULCER AND LOWER LEG ULCERS. SURGICAL AND DPM CONSULTS CALLED TO DR CARVALHO AND DR ROSADO. RECOMMENDATIONS MADE FOR SKIN PROTECTION. DISCUSSED WITH NURSING STAFF. PT IS ON [facility] LOW AIRLOSS BED. MD IN AGREEMENT WITH PLAN OF CARE.
--- NOTE | 2020-12-31 11:55 | NUR ---
RN NOTES PER MICK MAY TO GIVE BLOOD DURING DIALYSIS. NURSING MANAGER CREDIT COLLECTIONS MADE AWARE AND TO FOLLOW UP HD TEAM.
--- NOTE | 2020-12-31 11:57 | NUR ---
JESSICA JENSEN MADE AWARE STILL WAITING FOR PICCLINE ,UNABLE TO TRANSFUSE BLOOD YET.PER OK TO GIVE W/ HD AND WANTED TO CLARIFY WHICH RENAL GROUP TO FF. UP ,SHARYN POOLE WILL CLARIFY,WILL CONTINUE TO MONITOR.
[2020-12-31] MEDS ORDERED: PIPERACILLIN /TAZOBACTAM 3.375 G in IV D5W 50 ML IV SCH (12:00)
[2020-12-31] MEDS: RIFAXIMIN 550 MG TABLET PO SCH ×2 (12:00→17:00)
[2020-12-31] MEDS ORDERED: PIPERACILLIN /TAZOBACTAM 2.25 G in IV D5W 50 ML IV SCH (13:00)
--- NOTE | 2020-12-31 13:00 | NUR ---
RN NOTES XIFAXAN WAS NOT ADMINISTERED @1300 DUE TO NPO AND PT LETHARGIC.
--- NOTE | 2020-12-31 13:30 | NUR ---
RN NOTES PT STARTED HD. BLOOD TRANSFUSION GIVEN WITH HD. VS STABLE.
--- NOTE | 2020-12-31 17:00 | NUR ---
RN NOTES PO MEDS NOT ADMINISTERED. PT IS LETHARGIC AND UNABLE TO TOLERATE PO INTAKE AT THIS TIME.
[2020-12-31] MEDS ORDERED: VANCOMYCIN 1 GM in IV D5W 250 ML IV ONE (18:00)
--- NOTE | 2020-12-31 18:52 | NUR ---
RN CLOSING NOTES NO SIGNIFICANT CHANGES THROUGHOUT THE SHIFT. STILL CONFUSED. STILL NO IV ACCESS. VANCO NOT GIVEN SINCE NO IV ACCESS. ON RESTRAINTS, CHECKED FOR CIRCULATION. KEPT CLEAN AND COMFORTABLE. NPO. UNABLE TO TOLERATE PO INTAKE AT THIS TIME. SAFETY MEASURES IN PLACE. WILL ENDORSE TO NIGHT RN FOR LOKESH.
--- NOTE | 2020-12-31 19:30 | NUR ---
RN OPENING NOTES: RECEIVED PT A/OX1-2 IN BED RESTING COMFORTABLY. PATIENT IN NO S/SX OF ACUTE DISTRESS AT THIS TIME. NO SOB NOTED. PATIENT'S BREATHING IS EVEN AND UNLABORED. PATIENT IS ON 3L OF OXYGEN VIA NC; TOLERATING WELL.PT CURRENTLY ON NPO. NO IV ACCESS AT THIS TIME; WAITING FOR PICC LINE NURSE FOR INSERTION OF MIDLINE. WITH BILATERAL SOFT RESTRAINTS IN PLACED, MONITORED AND ASSESSED PER PROTOCOL. SAFETY MEASURES HAVE BEEN PROVIDED AND IMPLEMENTED. PATIENT BED ALARM IS ON. HEAD OF BED ELEVATED. BED IS LOCKED, IN LOWEST POSITION AND SIDE RAILS UP. CALL LIGHT WITHIN REACH OF THE PATIENT. APPLICABLE ISOLATION PRECAUTIONS IN PLACE. WILL CONTINUE TO MONITOR AND REASSESS FOR ANY CHANGES AND WILL CARRY OUT ANY ONGOING AND ACTIVE MD ORDER.
--- NOTE | 2020-12-31 19:39 | NUR ---
RN NOTES VANCO DUE @1800 AND MERREM DUE @1900 DELAYED DUE TO NO IV ACCESS; AWAITING FOR MIDLINE INSERTION WITHIN THE SHIFT. PHARMACY WELL AWARE.
--- NOTE | 2020-12-31 22:24 | NUR ---
RN NOTES RECEIVED CALL FROM CHARLENE (PT'S SISTER-[phone]) PROVIDED GENERAL UPDATES ABOUT PT. SHE WAS ALSO ASKING FOR PT'S DENTURES PER [facility] PT WAS SENT TO THE HOSPITAL WITH HIS DENTURES; CHECKED PT'S BELONGING LIST AND PT AND NO DENTURES LISTED AND PT NOT WEARING DENTURES; ADVISED CHARLENE. SHE ACKNOWLEDGED AND WILL FOLLOW UP WITH [facility]. FACILITATED PHONE CALL FOR PT AND CHARLENE FOR 2-3MINS. ADVISED CHARLENE TO CALL IN THE MORNING FOR MORE CONTCRETE INFO ABOUT TX PLAN FROM . SHE ACKNOWLEDGED.
--- NOTE | 2020-12-31 22:30 | NUR ---
RN NOTES PICC LINE NURSE (EUNICE DE SANTIAGO) FACILITATED INSERTION OF MIDLINE @ L UA G#18, SECURED , INTACT AND FLUSHING WELL. VP CLINICAL RESEARCH WELL AWARE.
[2020-12-31] MEDS: IV NS 0.9% 1,000 ML IV PRN (23:00)
--- NOTE | 2020-12-31 23:10 | NUR ---
RN NOTES CALLED [facility]; SPOKE WITH JOJO, ADVISED THAT VANCO DUE @1800 AND MERREM DUE @2000 WERE NOT GIVEN IN TH EMORNING SHIFT DUE TO NO IV ACCESS LINE; HOSPITAL PHARMACY WELL AWARE. VERIFIED IF WE CAN START GIVING MEDS NOW OR NEEDS TO ADJUST TIME. JOJO SAID WE CAN START GIVING MEDS NOW ONE AT A TIME. BLOOD BANK MANAGER MADE AWARE.
[2020-12-31] MEDS: MEROPENEM 500 MG in IV NS 0.9% 50 ML IV SCH (23:27)
[2020-12-31] MEDS: MORPHINE SULFATE INJ 2 MG/ML DISP.SYRIN IV PRN (23:28)
[2021-01-01] VITALS (14 sets, daily range): BP systolic 103–130; BP diastolic 53–73
--- NOTE | 2021-01-01 | NUR ---
RN NOTES PATIENT REMAINED TO BE IN NO SIGNS OF ACUTE RESPIRATORY DISTRESS , VITAL SIGNS WNL AT THIS TIME. MANAGED CARE PROVIDER MADE AWARE. WILL CONTINUE TO MONITOR AND REASSESS FOR ANY CHANGES THROUGHOUT THE SHIFT.
--- NOTE | 2021-01-01 04:00 | NUR ---
RN NOTES NO NOTED CHANGES IN PATIENT CONDITION AT THIS TIME; PATIENT VITALS STABLE, NO SIGNS OF ACUTE RESPIRATORY DISTRESS. AM PATIENT CARE RENDERED. BUSINESS INTELLIGENCE CONSULTANT MADE AWARE. WILL CONTINUE TO MONITOR AND REASSESS FOR ANY CHANGES THROUGHOUT THE SHIFT.
[2021-01-01] MEDS: MORPHINE SULFATE INJ 2 MG/ML DISP.SYRIN IV PRN (04:46)
--- NOTE | 2021-01-01 06:57 | NUR ---
RN CLOSING NOTE: PATIENT REMAINS IN ROOM IN NO SIGNS OF RESPIRATORY DISTRESS, PATIENT STILL ON 3L OF O2 VIA NC ;TOLERATING WELL SATURATING @ >95% SP02. SAFETY MEASURES IMPLEMENTED, BED IN LOWEST POSITION, LOCKED, SIDE RAILS UP, CALL LIGHT WITHIN REACH. ALL NEEDS AND ORDERS ADDRESSED DURING THE SHIFT. IV ACCESS MAINTAINED INTACT, SECURED AND FLUSHING WELL. ALL DUE MEDS GIVEN ORDERED & SCHEDULED ; PATIENT TOLERATED WELL. PATIENT KEPT CLEAN AND COMFORTABLE WITHIN THE SHIFT. PATIENT ENDORSED TO INCOMING SHIFT RN WITH STABLE VITAL SIGN AND FOR CONTINUITY OF CARE.
--- NOTE | 2021-01-01 07:00 | NUR ---
RN CLOSING NOTE: PATIENT REMAINS IN ROOM IN NO SIGNS OF RESPIRATORY DISTRESS, PATIENT STILL ON ROOM AIR ;TOLERATING WELL SATURATING @ >95% SP02. SAFETY MEASURES IMPLEMENTED, BED IN LOWEST POSITION, LOCKED, SIDE RAILS UP, CALL LIGHT WITHIN REACH. ALL NEEDS AND ORDERS ADDRESSED DURING THE SHIFT. IV ACCESS MAINTAINED INTACT, SECURED AND FLUSHING WELL. ALL DUE MEDS GIVEN ORDERED & SCHEDULED ; PATIENT TOLERATED WELL. PATIENT KEPT CLEAN AND COMFORTABLE WITHIN THE SHIFT. WITH ONGOING BLOOD TRANSFUSION OF 1 UNIT PRBC. ; CURRENT V/S WNL AND NO NOTED TRANSFUSION REACTION AT THIS TIME. PATIENT ENDORSED TO INCOMING SHIFT RN WITH STABLE VITAL SIGN AND FOR CONTINUITY OF CARE.
[2021-01-01 07:13] LABS: ALBUMIN 1.8 g/dL (3.4-5.0); BILIRUBIN,TOTAL 13.2 mg/dL (0.2-1.0); CREATININE 4.6 mg/dL (0.6-1.3); PHOSPHORUS 4.7 mg/dL (2.5-4.9); POTASSIUM 3.6 mmol/L (3.5-5.1); TOTAL PROTEIN, SERUM 6.4 g/dL (6.4-8.2)
[2021-01-01 07:19] LABS: BASOPHILS % (AUTO) 0.2 % (0.0-2.0); EOSINOPHILS % (AUTO) 0.5 % (0.0-6.0); LYMPHOCYTES # (AUTO) 1.3 K/uL (0.8-4.8); LYMPHOCYTES % (AUTO) 9.7 % (20.0-44.0); MEAN CORPUSCULAR HGB CONC 34 g/dl (31.0-36.0); MEAN CORPUSCULAR VOLUME 109 fL (80-96); MONOCYTES # (AUTO) 1.5 K/uL (0.1-1.30); MONOCYTES % (AUTO) 11.4 % (2.0-12.0); NEUTROPHILS # (AUTO) 10.2 K/uL (1.8-8.9); NEUTROPHILS % (AUTO) 78.2 % (43.0-81.0); PLATELET COUNT (AUTO) 122 K/uL (150-450); WHITE BLOOD COUNT (AUTO) 13.1 K/uL (4.3-11.0)
--- NOTE | 2021-01-01 07:19 | NUR ---
WOUND CARE CONSULT: PT PRESENTS WITH DISCOLORATIONS TO UPPER AND LOWER EXTREMITIES, SACRAL INCONTINENCE ASSOCIATED SKIN DAMAGE OVER PREVIOUS SCARRING (PREVIOUS STAGE 3) AND OPEN AREAS TO LOWER LEGS WHICH ARE WEEPING. PT FOLLOWED BY TOPOGRAPHY TECHNICIAN FOR LOWER EXTREMITIES. RECOMMENDATIONS MADE FOR SKIN PROTECTION. DISCUSSED WITH NURSING STAFF. PT IS ON [facility] LOW AIRSS BED. IN AGREEMENT WITH PLAN OF CARE. Addendum: 01/01/21 at 0721 by LORRI MCCORMICK WNDNU Amended: Links added.
[2021-01-01 07:33] LABS: RED BLOOD CELL COUNT(AUTO) 1.78 MIL/uL (4.5-6.0)
[2021-01-01 07:34] LABS: HEMATOCRIT 19 % (39-51); HEMOGLOBIN 6.6 g/dL (13.5-17.5)
[2021-01-01] MEDS: MEROPENEM 500 MG in IV NS 0.9% 50 ML IV SCH ×2 (07:45→20:18)
[2021-01-01] MEDS ORDERED: VANCOMYCIN 500 MG in IV D5W 100 ML IV PRN (08:00)
--- NOTE | 2021-01-01 08:00 | NUR ---
television repair teacher note patient in bed , alert oriented on 3l nc no sob noted at this time hg 6.6 dr hussein notified by charge nurse , on tele monitor sr hr 88 , on soft restrain as ordered circulation checked , skin warm and dry, llt ua mid line in place , on ivf as ordered still npo ok to give medication,, bed in lowest and locked position bed in lowest and locked position , call light within reach , plan of care discussed with patient, will cont to monitor
[2021-01-01 08:22] LABS: EOSINOPHILS % (MANUAL) 3 % (0-4); LYMPHOCYTES % (MANUAL) 10 % (16-48); MONOCYTES % (MANUAL) 11 % (0-11.0); NEUTROPHILS % (MANUAL) 76 (42-76)
[2021-01-01] MEDS: RIFAXIMIN 550 MG TABLET PO SCH ×2 (08:44→16:15)
[2021-01-01] MEDS: FAMOTIDINE (20 MG) 20 MG TABLET PO SCH ×2 (08:44→20:47)
[2021-01-01] MEDS: LACTULOSE 10 G/15 ML UDC (PYXIS) PO SCH ×2 (08:45→16:15)
[2021-01-01] MEDS: Z GUARD REMEDY 2 OZ OINT TP PRN (08:54)
--- NOTE | 2021-01-01 09:20 | NUR ---
MS RN NOTE PHLEBOTOMY CAME TO JANN BLOOD FOR TYPE AND SCREEN. PATIENT IS NPO. PUT THE BED ON THE LOWEST POSITION. CALL LIGHT WITHIN REACH.
[2021-01-01] MEDS: Z GUARD REMEDY 2 OZ OINT TP SCH (09:29)
--- NOTE | 2021-01-01 10:46 | NUR ---
MS RN NOTE BLOOD TRANSFUSION WAS STARTED ORDER. ONE UNIT OF BLOOD (PRBC) WAS STARTED. NO REACTION WAS NOTED. WILL CONTINUE TO MONITOR.
--- NOTE | 2021-01-01 13:19 | NUR ---
CUSTOMS IMPORT SPECIALIST NOTE DR HENNING INDUCTION FURNACE OPERATOR MADE ROUNDS , KUO THAT BUN 51 REAT 4.6 OK TO DRINK WATER TOLERATED AWARE THAT AMMONIA 42 TODAY
--- NOTE | 2021-01-01 13:40 | NUR ---
INDUSTRIAL PRODUCTION MANAGER NOTE ONE UNIT PRBC COMPLETED. NO ADVERSE REACTION NOTED. WILL CONTINUE TO MONITOR. DR. MILADY GONZALEZ TO GIVE WATER.
[2021-01-01] MEDS: IV NS 0.9% 1,000 ML IV PRN (14:08)
--- NOTE | 2021-01-01 15:00 | NUR ---
JOURNEYMAN PRESS OPERATOR NOTE PER DR JESSICA WHITTEN OK TO START CLEAR LIQUID DIET
--- NOTE | 2021-01-01 15:18 | NUR ---
OPTICAL INSTRUMENT INSPECTOR NURSE 2ND PRBC STARTED ORDER. WILL MONITOR
[2021-01-01] MEDS ORDERED: HALOPERIDOL DECANOATE IM 100 MG/ML AMPUL IM ONE (16:50)
[2021-01-01] MEDS ORDERED: HALOPERIDOL LACTATE INJ 5 MG/ML VIAL IM ONE (17:00)
--- NOTE | 2021-01-01 17:42 | NUR ---
telehealth director note patient not trying to remove all lines at this time , soft restrained removed
--- NOTE | 2021-01-01 17:44 | NUR ---
TELE NURSE NOT UNABLE TO REMOVE RETRAIN. PATIENT WANTING TO PULL IV OUT.
--- NOTE | 2021-01-01 17:51 | NUR ---
telemarketing sales representative note patient agitated ,yelling and screaming . all needs attended, keep clean dry , fed dinner, turn reposition done , used urinal urinated 200 ml of urine, stated i want something to sleep, called to dr Beyn Kaur , notified that about patient cindition gave order Haldol im , will f\u
--- NOTE | 2021-01-01 18:25 | NUR ---
TELE NURSE NOTE. SECOND UNIT OF PRBC COMPLETED. NO ADVERSE REACTION NOTED. PROVIDE COMFORT MEASURES. PUT BED IN LOWEST POSITION WITH SIDE RAIL UP. RETRAIN REMOVE. WILL CONTINUE TO MONITOR. Addendum: 01/01/21 at 1919 by ROS MORAN RN able to make large amt of bm ,keep clean dry
--- NOTE | 2021-01-01 20:00 | NUR ---
EMPLOYMENT COORDINATOR NOTES : PATIENT REMAINS IN BED IN NO SIGNS OF RESPIRATORY DISTRESS, ON 3L OF O2 VIA NC ;TOLERATING WELL SATURATING @ >98% SP02. SAFETY MEASURES IMPLEMENTED, BED IN LOWEST POSITION, LOCKED, SIDE RAILS UP, CALL LIGHT WITHIN REACH. ALL NEEDS AND ORDERS ADDRESSED DURING THE SHIFT. IV ACCESS MAINTAINED INTACT, SECURED AND FLUSHING WELL. ALL DUE MEDS GIVEN ORDERED & SCHEDULED ; PATIENT TOLERATED WELL. PATIENT KEPT CLEAN AND COMFORTABLE WITHIN THE SHIFT. WILL CONTINUE TO MONITOR PTS.
[2021-01-02] VITALS: BP 101/52
[2021-01-02 04:00] VITALS: BP 110/54
[2021-01-02] MEDS: IV NS 0.9% 1,000 ML IV PRN (05:15)
[2021-01-02 06:00] LABS: BASOPHILS # (AUTO) 0.1 K/uL (0.0-0.2); BASOPHILS % (AUTO) 0.6 % (0.0-2.0); EOSINOPHILS % (AUTO) 1.9 % (0.0-6.0); HEMATOCRIT 25 % (39-51); HEMOGLOBIN 8.5 g/dL (13.5-17.5); LYMPHOCYTES # (AUTO) 1.3 K/uL (0.8-4.8); LYMPHOCYTES % (AUTO) 10.9 % (20.0-44.0); MEAN CORPUSCULAR HGB CONC 34 g/dl (31.0-36.0); MEAN CORPUSCULAR VOLUME 101 fL (80-96); MONOCYTES # (AUTO) 1.6 K/uL (0.1-1.30); MONOCYTES % (AUTO) 13.3 % (2.0-12.0); NEUTROPHILS # (AUTO) 8.9 K/uL (1.8-8.9); NEUTROPHILS % (AUTO) 73.3 % (43.0-81.0); PLATELET COUNT (AUTO) 101 K/uL (150-450); RED BLOOD CELL COUNT(AUTO) 2.46 MIL/uL (4.5-6.0); WHITE BLOOD COUNT (AUTO) 12.1 K/uL (4.3-11.0)
--- NOTE | 2021-01-02 06:38 | NUR ---
television production technician notes pts in bed awake hemodialysis treatment on progress , hd nurse at bedside , 2 sets of blood culture with hd done as ordered , all needs attended too , continue on iv fluids at 100cc/hr as ordered.will endorse to rn day shift for continuity of care.
[2021-01-02 06:50] LABS: ALBUMIN 1.8 g/dL (3.4-5.0); BILIRUBIN,TOTAL 12.8 mg/dL (0.2-1.0); CALCIUM, SERUM 8.4 mg/dL (8.5-10.1); CREATININE 4.9 mg/dL (0.6-1.3); PHOSPHORUS 5.1 mg/dL (2.5-4.9); POTASSIUM 3.5 mmol/L (3.5-5.1); TOTAL PROTEIN, SERUM 6.5 g/dL (6.4-8.2)
--- NOTE | 2021-01-02 07:10 | NUR ---
RN Opening Notes Received patient comfortably resting in bed, patient asleep but is arousable to verbal and tactile stimuli. Patient's LUE midline intact and patent. Right Upper Chest HD Permacath intact and dry. Patient currently having HD at this time with HD nurse at bedside. Patient on O2 @ 3lpm, No SOB, no respiratory distress. VS stable, patient denies any pain and discomfort at this time. Will continue to monitor.
[2021-01-02 08:00] VITALS: BP 90/55
[2021-01-02] MEDS: MEROPENEM 500 MG in IV NS 0.9% 50 ML IV SCH ×2 (08:57→19:43)
[2021-01-02] MEDS: RIFAXIMIN 550 MG TABLET PO SCH ×2 (09:20→16:30)
[2021-01-02] MEDS: FAMOTIDINE (20 MG) 20 MG TABLET PO SCH ×2 (09:20→20:53)
[2021-01-02] MEDS: Z GUARD REMEDY 2 OZ OINT TP PRN (09:20)
[2021-01-02] MEDS: LACTULOSE 10 G/15 ML UDC (PYXIS) PO SCH ×2 (09:20→16:30)
[2021-01-02] MEDS: Z GUARD REMEDY 2 OZ OINT TP SCH (09:22)
--- NOTE | 2021-01-02 09:29 | NUR ---
RN NOTES HD COMPLETED. 1 LITER OUTPUT
[2021-01-02] MEDS ORDERED: VANCOMYCIN 1 GM in IV D5W 250 ML IV ONE (13:00)
--- NOTE | 2021-01-02 15:00 | NUR ---
RN NOTES REPORT GIVEN TO EILANA CAMPA
[2021-01-02 16:00] VITALS: BP 100/64
--- NOTE | 2021-01-02 18:02 | NUR ---
RN NOTES NO SIGNIFICANT CHANGES NOTED , WILL ENDORSE TO BOXER OPERATOR NURSE FOR CONTINUITY OF CARE .
--- NOTE | 2021-01-02 19:30 | NUR ---
MS RN OPENING PATIENT IN BED WITH EYES CLOSED, EASY TO AROUSE. HAS NO APPARENT DISTRESS TOLERATING 3LPM OF OXYGEN VIA NC. NO C/O PAIN. NO FLUIDS RUNNING AT THIS TIME. 4+ EDEMA IN BILA. ANKLE NOTED. PATIENT HAS BRUISES IN R. FOREARM AND WOUND ON R. LOWEG LEG NOTED. SAFETY IN PLACE. WILL CONTINUE TO MONITOR. .
[2021-01-02 20:00] VITALS: BP 107/65
--- NOTE | 2021-01-02 20:57 | NUR ---
ms rn note patient re quested for sleeping medication. per patient he wants to sleep "give me something for sleep". given Ambien 5mg. will reassess.
--- NOTE | 2021-01-03 04:00 | NUR ---
ms rn note report given to Ruby at this time.
--- NOTE | 2021-01-03 04:42 | NUR ---
ms rn note patient transferred upstairs 3w in stable condition. v/s as follows: bp-114/66, hr- 93, rr-20, 99% o2 saturation in 3lpm o2, t- 97.5.
--- NOTE | 2021-01-03 04:45 | NUR ---
MS RN NOTE PT TRANSPORTED VIA GURNEY TO MED SURG UNIT AT THIS TIME. A/O X3. PT ON 3LPM O2 VIA NC SATURATING AT 99%. NO SOB OR S/S OF RESPIRATORY DISTRESS NOTED. PT HAS NO C/O PAIN OR DISCOMFORT AT THIS TIME. IV ACCESS IN LFA MIDLINE SALINE-LOCKED, INTACT AND PATENT. PT WITH RIGHT UPPER CHEST HD CATH, INTACT AND DRY. PT NOTED WITH JAUNDICED SKIN AND BILATERAL ANKLE 4+ EDEMA. ORIENTED PT TO STAFF, ROOM, AND UNIT. SAFETY PRECAUTIONS MAINTAINED. BED IN LOWEST LOCKED POSITION, HOB ELEVATED, SIDE RAILS UP X2. CALL LIGHT AND TABLE WITHIN REACH. WILL CONTINUE TO MONITOR.
[2021-01-03 05:00] VITALS: BP 114/66
[2021-01-03] MEDS ORDERED: VANCOMYCIN 500 MG in IV D5W 100 ML IV PRN (06:00)
--- NOTE | 2021-01-03 06:28 | NUR ---
MS RN CLOSING NOTE PT IS AWAKE IN BED. A/O X3. PT IS ON 3LPM O2 VIA NC SATURATING AT 99%. NO SOB OR S/S OF RESPIRATORY DISTRESS NOTED. PT HAS NO C/O PAIN OR DISCOMFORT AT THIS TIME. IV ACCESS IN LFA MIDLINE SALINE-LOCKED, INTACT AND PATENT. PT WITH RIGHT UPPER CHEST HD CATH, INTACT AND DRY. ALL NEEDS HAVE BEEN MET. SAFETY PRECAUTIONS MAINTAINED AT ALL TIMES. BED IN LOWEST LOCKED POSITION, HOB ELEVATED, SIDE RAILS UP X2. CALL LIGHT AND TABLE WITHIN REACH. WILL ENDORSE TO ONCOMING NURSE FOR LOKESH.
--- NOTE | 2021-01-03 07:50 | NUR ---
MS/RN OPENING NOTE RECEIVED PT AWAKE IN BED. A/O X3. PT IS ON 3LPM O2 VIA NC SATURATING AT 99%. NO SOB OR S/S OF RESPIRATORY DISTRESS NOTED. PT HAS NO C/O PAIN OR DISCOMFORT AT THIS TIME. IV ACCESS IN LFA MIDLINE SALINE-LOCKED, INTACT AND PATENT. PT WITH RIGHT UPPER CHEST HD CATH, INTACT AND DRY. SAFETY PRECAUTIONS IN PLACED: BED IN LOWEST LOCKED POSITION, HOB ELEVATED, SIDE RAILS UP X2. CALL LIGHT AND TABLE WITHIN REACH. WILL CONTINUE WITH THE PLAN OF CARE.
[2021-01-03 08:00] VITALS: BP 116/68
[2021-01-03] MEDS: MORPHINE SULFATE INJ 2 MG/ML DISP.SYRIN IV PRN ×4 (08:23→21:33)
[2021-01-03] MEDS: LACTULOSE 10 G/15 ML UDC (PYXIS) PO SCH ×2 (08:39→17:22)
[2021-01-03] MEDS: FAMOTIDINE (20 MG) 20 MG TABLET PO SCH ×2 (08:39→20:10)
[2021-01-03] MEDS: RIFAXIMIN 550 MG TABLET PO SCH ×2 (08:39→17:22)
[2021-01-03] MEDS: Z GUARD REMEDY 2 OZ OINT TP SCH (08:40)
[2021-01-03 09:58] LABS: BASOPHILS # (AUTO) 0.1 K/uL (0.0-0.2); EOSINOPHILS % (AUTO) 1.3 % (0.0-6.0); HEMOGLOBIN 8.9 g/dL (13.5-17.5)
[2021-01-03 10:09] LABS: BASOPHILS % (AUTO) 0.8 % (0.0-2.0); HEMATOCRIT 27 % (39-51); LYMPHOCYTES % (AUTO) 6.5 % (20.0-44.0); MEAN CORPUSCULAR HGB CONC 34 g/dl (31.0-36.0); MEAN CORPUSCULAR VOLUME 103 fL (80-96); MONOCYTES # (AUTO) 1.4 K/uL (0.1-1.30); MONOCYTES % (AUTO) 8.9 % (2.0-12.0); NEUTROPHILS # (AUTO) 12.8 K/uL (1.8-8.9); NEUTROPHILS % (AUTO) 82.5 % (43.0-81.0); PLATELET COUNT (AUTO) 99 K/uL (150-450); RED BLOOD CELL COUNT(AUTO) 2.57 MIL/uL (4.5-6.0); WHITE BLOOD COUNT (AUTO) 15.5 K/uL (4.3-11.0)
[2021-01-03 11:07] LABS: ALBUMIN 1.7 g/dL (3.4-5.0); BILIRUBIN,TOTAL 12.9 mg/dL (0.2-1.0); CALCIUM, SERUM 8.2 mg/dL (8.5-10.1); PHOSPHORUS 4.3 mg/dL (2.5-4.9); POTASSIUM 3.6 mmol/L (3.5-5.1); TOTAL PROTEIN, SERUM 6.7 g/dL (6.4-8.2)
[2021-01-03 12:47] LABS: LYMPHOCYTES % (MANUAL) 6 % (16-48); MONOCYTES % (MANUAL) 9 % (0-11.0); NEUTROPHILS % (MANUAL) 85 (42-76)
[2021-01-03 16:09] VITALS: BP 128/69
[2021-01-03] MEDS: ENSURE CLEAR 237 ML LIQUID (MIX BERRY) PO SCH (17:51)
--- NOTE | 2021-01-03 19:28 | NUR ---
MS/RN CLOSING NOTE PT AWAKE IN BED. A/O X3. PT IS ON 3LPM O2 VIA NC SATURATING AT 99%. NO SOB OR S/S OF RESPIRATORY DISTRESS NOTED. PT HAS NO C/O PAIN OR DISCOMFORT AT THIS TIME. IV ACCESS IN LFA MIDLINE SALINE-LOCKED, INTACT AND PATENT. PT WITH RIGHT UPPER CHEST HD CATH, INTACT AND DRY. SAFETY PRECAUTIONS IN PLACED: BED IN LOWEST LOCKED POSITION, HOB ELEVATED, SIDE RAILS UP X2. CALL LIGHT AND TABLE WITHIN REACH. WILL ENDORSE TO THE NEXT SHIFT FOR LOKESH.
[2021-01-03 20:00] VITALS: BP 122/69
[2021-01-03 20:03] VITALS: BP 122/69
[2021-01-03] MEDS: MEROPENEM 500 MG in IV NS 0.9% 50 ML IV SCH (20:09)
[2021-01-03] MEDS ORDERED: GENTAMICIN 160 MG in IV D5W 100 ML IV ONE (21:30)
[2021-01-03] MEDS ORDERED: GENTAMICIN 80 MG/2 ML VIAL ONE (21:54)
--- NOTE | 2021-01-04 04:36 | NUR ---
closing notes: Remains in bed bedrest alert and orientated X3 makes his needs known o2 n/c 02 sats 98 - 100 % Yesterdays H/H 8.01/26 remains on clear liquids tolerating w/o nausea patient not being cooperative about being repositioned...when turn onto sides he will scoot over to be on his back. morphne for pain has been effective
[2021-01-04] MEDS: MORPHINE SULFATE INJ 2 MG/ML DISP.SYRIN IV PRN ×5 (04:52→23:41)
[2021-01-04] MEDS ORDERED: GENTAMICIN 100 MG in IV D5W 50 ML IV PRN (06:30)
[2021-01-04 08:00] VITALS: BP 109/65
[2021-01-04] MEDS: FAMOTIDINE (20 MG) 20 MG TABLET PO SCH ×2 (09:02→21:25)
[2021-01-04] MEDS: RIFAXIMIN 550 MG TABLET PO SCH ×2 (09:02→16:37)
[2021-01-04] MEDS: LACTULOSE 10 G/15 ML UDC (PYXIS) PO SCH ×2 (09:02→16:37)
[2021-01-04] MEDS: Z GUARD REMEDY 2 OZ OINT TP SCH (09:03)
[2021-01-04] MEDS: ENSURE CLEAR 237 ML LIQUID (MIX BERRY) PO SCH ×3 (09:03→16:37)
[2021-01-04 16:00] VITALS: BP 101/63
--- NOTE | 2021-01-04 18:56 | NUR ---
MS/RN CLOSING NOTE PT AWAKE IN BED. A/O X3. AWAITING ON HEMODIALYSIS TREATMENT. PT IS ON 3LPM O2 VIA NC SATURATING AT 99%. NO SOB OR S/S OF RESPIRATORY DISTRESS NOTED. PT HAS NO C/O PAIN OR DISCOMFORT AT THIS TIME. IV ACCESS IN LFA MIDLINE SALINE-LOCKED, INTACT AND PATENT. PT WITH RIGHT UPPER CHEST HD CATH, INTACT AND DRY. SAFETY PRECAUTIONS IN PLACED: BED IN LOWEST LOCKED POSITION, HOB ELEVATED, SIDE RAILS UP X2. CALL LIGHT AND TABLE WITHIN REACH. WILL ENDORSE TO THE NEXT SHIFT FOR LOKESH.
--- NOTE | 2021-01-04 19:30 | NUR ---
RN NOTES Received patient awake on his,dialysis nurse at bedside, patient is going to have dialysis, not in distress, siderailsupx2, bed in locked position, continue to monitor
[2021-01-04 20:00] VITALS: BP 106/68
--- NOTE | 2021-01-04 21:19 | NUR ---
RN NOTES Complained of generalized pain- Morphine 2 mg IV given as ordered, V/S stable
[2021-01-04] MEDS ORDERED: GENTAMICIN 80 MG/2 ML VIAL ONE (21:41)
--- NOTE | 2021-01-04 23:10 | NUR ---
RN NOTES Spoke to patient's sister Beba Cerrato and informed her that patient is going to have EGD probably tomorrow or Tuesday and I need a consent from her. Beba gave a telephone consent witnessed by another RN Nathaniel
--- NOTE | 2021-01-04 23:45 | NUR ---
RN NOTES Complained of generalized pain- Morphine 2 mg IV given as ordered, V/S stable
[2021-01-05] MEDS: MORPHINE SULFATE INJ 2 MG/ML DISP.SYRIN IV PRN ×5 (03:50→20:35)
--- NOTE | 2021-01-05 03:50 | NUR ---
RN NOTES Complained of generalized pain- Morphine 2 mg IV given as ordered, V/S stable
--- NOTE | 2021-01-05 06:39 | NUR ---
RN NOTES Sleeping but arousable, not in distress,no pain at this time, morning care rendered, call light within reach, elisabetupx2, pt. needs attended
[2021-01-05] MEDS: ENSURE CLEAR 237 ML LIQUID (MIX BERRY) PO SCH ×3 (07:29→17:03)
--- NOTE | 2021-01-05 07:50 | NUR ---
MS RN OPENING NOTES RECEIVED PATIENT IN BED, AWAKE, A/O X3. PATIENT ON OXYGEN THERAPY; BREATHING EVEN AND UNLABORED AT THIS TIME. COMPLAINING OF GENERALIZED PAIN. EVA MIDLINE; SL PRESENT AND INTACT. R UPPER CHEST HD CATH PRESENT. SAFETY PRECAUTIONS IN PLACE; BED IN LOW POSITION AND LOCKED, RAILS UP X2, CALL LIGHT WITHIN REACH. WILL CONTINUE TO MONITOR PATIENT.
[2021-01-05] MEDS: RIFAXIMIN 550 MG TABLET PO SCH ×2 (08:01→16:55)
[2021-01-05] MEDS: Z GUARD REMEDY 2 OZ OINT TP SCH (08:01)
[2021-01-05] MEDS: LACTULOSE 10 G/15 ML UDC (PYXIS) PO SCH ×2 (08:01→16:55)
[2021-01-05] MEDS: FAMOTIDINE (20 MG) 20 MG TABLET PO SCH ×2 (08:01→20:35)
--- NOTE | 2021-01-05 08:06 | NUR ---
MS RN NOTES PATIENT COMPLAINING OF PAIN 8 OUT OF 10 AND REQUESTING PAIN MEDICATION. PRN MORPHINE 1 ML ADMINISTERED. WILL REASSESS.
[2021-01-05 08:21] VITALS: BP 112/56
[2021-01-05 08:36] LABS: CALCIUM, SERUM 7.8 mg/dL (8.5-10.1); CREATININE 3.8 mg/dL (0.6-1.3); PHOSPHORUS 4.5 mg/dL (2.5-4.9)
[2021-01-05 08:42] LABS: POTASSIUM 2.8 mmol/L (3.5-5.1)
[2021-01-05 09:09] LABS: BASOPHILS # (AUTO) 0.1 K/uL (0.0-0.2); BASOPHILS % (AUTO) 0.6 % (0.0-2.0); EOSINOPHILS % (AUTO) 1.3 % (0.0-6.0); HEMATOCRIT 25 % (39-51); HEMOGLOBIN 8.5 g/dL (13.5-17.5); LYMPHOCYTES # (AUTO) 0.8 K/uL (0.8-4.8); LYMPHOCYTES % (AUTO) 5.7 % (20.0-44.0); MEAN CORPUSCULAR HGB CONC 34 g/dl (31.0-36.0); MEAN CORPUSCULAR VOLUME 103 fL (80-96); MONOCYTES # (AUTO) 2.2 K/uL (0.1-1.30); MONOCYTES % (AUTO) 16.3 % (2.0-12.0); NEUTROPHILS # (AUTO) 10.3 K/uL (1.8-8.9); NEUTROPHILS % (AUTO) 76.1 % (43.0-81.0); RED BLOOD CELL COUNT(AUTO) 2.41 MIL/uL (4.5-6.0); WHITE BLOOD COUNT (AUTO) 13.5 K/uL (4.3-11.0)
[2021-01-05 09:42] LABS: PLATELET COUNT (AUTO) 40 K/uL (150-450)
--- NOTE | 2021-01-05 10:17 | NUR ---
MS RN NOTES LAB CALLED WITH [facility] OF 4.7 MD MADE AWARE
[2021-01-05] MEDS: POTASSIUM CL. PREMIX PERIPHER. 50 ML IV SCH ×3 (11:42→14:01)
--- NOTE | 2021-01-05 12:11 | NUR ---
MS RN NOTES PATIENT COMPLAINING OF PAIN 8 OUT OF 10 AND REQUESTING PAIN MEDICATION. PRN MORPHINE 1 ML ADMINISTERED. WILL REASSESS.
[2021-01-05 13:12] LABS: BAND % (MANUAL) 1 % (0.0-5.0); LYMPHOCYTES % (MANUAL) 6 % (16-48); MONOCYTES % (MANUAL) 9 % (0-11.0); NEUTROPHILS % (MANUAL) 84 (42-76)
[2021-01-05 16:19] VITALS: BP 114/66
--- NOTE | 2021-01-05 16:19 | NUR ---
MS RN NOTES PATIENT COMPLAINING OF PAIN 8 OUT OF 10 AND REQUESTING PAIN MEDICATION. PRN MORPHINE 1 ML ADMINISTERED. WILL REASSESS.
--- NOTE | 2021-01-05 18:33 | NUR ---
MS RN CLOSING NOTES PATIENT REMAINS IN BED WATCHING TV, AWAKE, A/O X3. PATIENT ON OXYGEN THERAPY; BREATHING EVEN AND UNLABORED AT THIS TIME. PAIN TREATED WITH PRN MORPHINE 2 MG DURING THE DAY. EVA MIDLINE; SL PRESENT AND INTACT. R UPPER CHEST HD CATH PRESENT. ALL NEEDS ATTENDED DURING THE DAY. SAFETY PRECAUTIONS IN PLACE; BED IN LOW POSITION AND LOCKED, RAILS UP X2, CALL LIGHT WITHIN REACH. WILL ENDORSE TO MOBILE PHLEBOTOMIST NURSE.
--- NOTE | 2021-01-05 19:37 | NUR ---
MS RN Opening Notes Patient was seen sleeping in bed resting. Patient's A/Ox3. Patient's on 3L of oxygen via nasal cannula with no respiratory distress noted. Patient has a EVA midline and a R upper chest HD cath. Patient's in no acute distress at this time. Safety measures in place: Bed locked, bed alarm on, side rails upx3, and call light within reach of the patient. Will continue to monitor the patient.
[2021-01-05 20:00] VITALS: BP 112/64
[2021-01-06] MEDS: MORPHINE SULFATE INJ 2 MG/ML DISP.SYRIN IV PRN ×7 (00:44→23:50)
--- NOTE | 2021-01-06 00:44 | NUR ---
MS RN Notes Patient was given 2mg of Morphine IV for 9/10 pain. Will continue to monitor the patient.
--- NOTE | 2021-01-06 05:27 | NUR ---
MS RN Notes Patient was given 2mg of Morphine IV for 9/10 pain. Will continue to monitor the patient.
--- NOTE | 2021-01-06 07:48 | NUR ---
MS/RN OPENING NOTES RECEIVED PATIENT ON BED AWAKE ALERT AND ORIENTEDX3. PATIENT IS ON 3L OXYGEN VIA [employer] CANNULA SATURATING WELL. PATIENT IN NO APPARENT RESPIRATORY DISTRESS NOTED. NO COMPLAINED OF PAIN NOTED AT THIS TIME. WILL CONTINUE OT MONITOR.
[2021-01-06 08:00] VITALS: BP 96/66
[2021-01-06] MEDS: ENSURE CLEAR 237 ML LIQUID (MIX BERRY) PO SCH ×3 (08:00→17:03)
[2021-01-06] MEDS: RIFAXIMIN 550 MG TABLET PO SCH ×2 (09:00→17:01)
[2021-01-06] MEDS: LACTULOSE 10 G/15 ML UDC (PYXIS) PO SCH ×2 (09:00→17:01)
[2021-01-06] MEDS: FAMOTIDINE (20 MG) 20 MG TABLET PO SCH ×2 (09:00→21:14)
[2021-01-06] MEDS: Z GUARD REMEDY 2 OZ OINT TP SCH (10:00)
[2021-01-06 13:13] LABS: BASOPHILS # (AUTO) 0.1 K/uL (0.0-0.2); BASOPHILS % (AUTO) 0.4 % (0.0-2.0); HEMATOCRIT 25 % (39-51); HEMOGLOBIN 8.3 g/dL (13.5-17.5); LYMPHOCYTES # (AUTO) 0.9 K/uL (0.8-4.8); LYMPHOCYTES % (AUTO) 7.5 % (20.0-44.0); MEAN CORPUSCULAR HGB CONC 34 g/dl (31.0-36.0); MEAN CORPUSCULAR VOLUME 105 fL (80-96); MONOCYTES # (AUTO) 1.9 K/uL (0.1-1.30); MONOCYTES % (AUTO) 15.1 % (2.0-12.0); NEUTROPHILS # (AUTO) 9.3 K/uL (1.8-8.9); PLATELET COUNT (AUTO) 57 K/uL (150-450); RED BLOOD CELL COUNT(AUTO) 2.37 MIL/uL (4.5-6.0); WHITE BLOOD COUNT (AUTO) 12.3 K/uL (4.3-11.0)
[2021-01-06 14:04] LABS: CALCIUM, SERUM 8.6 mg/dL (8.5-10.1); CREATININE 4.6 mg/dL (0.6-1.3); POTASSIUM 3.9 mmol/L (3.5-5.1)
--- NOTE | 2021-01-06 14:16 | NUR ---
RN NOTES DR. CHATTERJEE ORDER RENAL DIET AND NPO POST MIDNIGHT. NOTED AND CARRIED OUT.
[2021-01-06 16:00] VITALS: BP 110/66
--- NOTE | 2021-01-06 19:16 | NUR ---
MS/RN CLOSING NOTES PATIENT IS ALERT AND ORIENTED X3. PATIENT IS ON ROOM AIR. PATIENT IN NO APPARENT RESPIRATORY DISTRESS NOTED. NO COMPLAINED OF PAIN NOTED AT THIS TIME. SEEN AND EXAMINED BY MD WITH ORDERS MADE AND CARRIED OUT. ALL DUE MEDICATIONS WAS GIVEN. PATIENT REFUSED FOR IV INSERTION MD WAS AWARE. SAFETY PRECAUTIONS WAS IN PLACED. BED IN LOWEST POSITION AND LOCKED. CALL LIGHT WITHIN REACH. WILL ENDORSED TO OIL LEASE BUYER FOR LOKESH.
--- NOTE | 2021-01-06 19:27 | NUR ---
MS RN Opening Notes Patient was seen awake in bed resting. Patient's A/Ox3. Patient's on 3L of oxygen via nasal cannula with no respiratory distress noted. Patient has a EVA midline and a R upper chest HD cath. Patient's in no acute distress at this time. Safety measures in place: Bed locked, bed alarm on, side rails upx3, and call light within reach of the patient. Will continue to monitor the patient.
--- NOTE | 2021-01-06 19:44 | NUR ---
MS RN Notes Patient was given 2mg of Morphine IV for 10/10 pain. Will continue to monitor the patient.
[2021-01-06 20:00] VITALS: BP 102/66
[2021-01-06] MEDS: FUROSEMIDE 40 MG/4 ML VIAL IV SCH (23:09)
--- NOTE | 2021-01-06 23:50 | NUR ---
MS DAWSON Notes Patient was given 2mg of Morphine IV for 10/10 pain. Will continue to monitor the patient. Addendum: 01/06/21 at 2352 by OSMANY HERNANDEZ RN MS DAWSON Notes Patient was given 2mg of Morphine IV for 9/10 pain. Will continue to monitor the patient. Addendum: 01/06/21 at 2352 by OSMANY HERNANDEZ RN MS DAWSON Notes Disregard last note Patient was given 2mg of Morphine IV for 9/10 pain at 2350. Will continue to monitor the patient.
--- NOTE | 2021-01-07 03:25 | NUR ---
MS RN Notes Performed all wound care treatments ordered during the shift.
[2021-01-07] MEDS: MORPHINE SULFATE INJ 2 MG/ML DISP.SYRIN IV PRN ×5 (03:52→20:43)
--- NOTE | 2021-01-07 03:52 | NUR ---
MS RN Notes Patient was given 2mg of Morphine IV for 10/10 pain. Will continue to monitor the patient.
[2021-01-07 06:37] LABS: CALCIUM, SERUM 8.3 mg/dL (8.5-10.1); CREATININE 4.6 mg/dL (0.6-1.3); POTASSIUM 3.5 mmol/L (3.5-5.1)
[2021-01-07 06:41] LABS: PHOSPHORUS 5.7 mg/dL (2.5-4.9)
[2021-01-07 06:45] LABS: GENTAMICIN,TROUGH 2.7 ug/ml (0.2-2.0)
[2021-01-07 06:46] LABS: BASOPHILS % (AUTO) 0.4 % (0.0-2.0); EOSINOPHILS % (AUTO) 1.4 % (0.0-6.0); HEMATOCRIT 24 % (39-51); LYMPHOCYTES % (AUTO) 8.5 % (20.0-44.0); MEAN CORPUSCULAR HGB CONC 34 g/dl (31.0-36.0); MEAN CORPUSCULAR VOLUME 106 fL (80-96); MONOCYTES # (AUTO) 1.9 K/uL (0.1-1.30); NEUTROPHILS # (AUTO) 8.5 K/uL (1.8-8.9); NEUTROPHILS % (AUTO) 73.7 % (43.0-81.0); RED BLOOD CELL COUNT(AUTO) 2.24 MIL/uL (4.5-6.0); WHITE BLOOD COUNT (AUTO) 11.6 K/uL (4.3-11.0)
--- NOTE | 2021-01-07 07:17 | NUR ---
MS RN Closing Notes Patient was seen awake in bed resting. Patient's A/Ox3. Patient's on 3L of oxygen via nasal cannula with no respiratory distress noted. Patient has a EVA midline and a R upper chest HD cath. Patient's in no acute distress at this time. Safety measures in place: Bed locked, bed alarm on, side rails upx3, and call light within reach of the patient. Rail Specialist PM MD was made aware of the pt's Gentamicin trough lvl. of 2.7, there was no response, AM nurse was made aware of the Gentamicin's trough level. Endorsed care to the day shift nurse.
[2021-01-07 08:00] VITALS: BP 106/69
[2021-01-07] MEDS: ENSURE CLEAR 237 ML LIQUID (MIX BERRY) PO SCH ×3 (08:00→16:48)
--- NOTE | 2021-01-07 08:00 | NUR ---
MS RN OPENING NOTES RECEIVED PATIENT IN BED, AWAKE, A/O X3. ON 3L OXYGEN VIA NASAL CANNULA - TOLERATING WELL. NO SOB NOTED. NO DISTRESS/DISCOMFORT NOTED. IV ACCESS TO LEFT UA - MIDLINE, SALINE LOCKED. RIGHT UPPER CHEST WALL HD CATH PRESENT. PATIENT IS NPO FOR EGD PROCEUDRE. SAFETY MEASURES IN PLACE. CALL LIGHT WITHIN REACH. WILL CONTINUE TO MONITOR.
[2021-01-07 08:22] LABS: PLATELET COUNT (AUTO) 38 K/uL (150-450)
[2021-01-07] MEDS: FUROSEMIDE 40 MG/4 ML VIAL IV SCH ×2 (08:23→16:43)
[2021-01-07] MEDS: LACTULOSE 10 G/15 ML UDC (PYXIS) PO SCH ×3 (08:23→16:43)
[2021-01-07] MEDS: RIFAXIMIN 550 MG TABLET PO SCH ×3 (08:23→16:43)
[2021-01-07] MEDS: FAMOTIDINE (20 MG) 20 MG TABLET PO SCH ×3 (08:24→20:42)
[2021-01-07] MEDS: Z GUARD REMEDY 2 OZ OINT TP SCH (08:29)
[2021-01-07] MEDS ORDERED: RXGEN XX (11:05)
[2021-01-07] MEDS ORDERED: PHYTONADIONE INJ 10 MG/1 ML AMPUL SQ ONE (11:30)
[2021-01-07 12:53] LABS: LYMPHOCYTES % (MANUAL) 8 % (16-48); MONOCYTES % (MANUAL) 14 % (0-11.0); NEUTROPHILS % (MANUAL) 78 (42-76)
[2021-01-07 16:00] VITALS: BP 92/68
--- NOTE | 2021-01-07 18:29 | NUR ---
MS RN OPENING NOTES PATIENT CURRENTLY LYING IN BED, RESTING. EASY TO AROUSE, A/O X3. ON 3L OXYGEN VIA NASAL CANNULA - TOLERATING WELL. NO SOB NOTED. NO DISTRESS/DISCOMFORT NOTED. LAST PAIN MEDICATION GIVEN 2 1643 - MORPHINE 2MG IV. IV ACCESS TO LEFT UA - MIDLINE, SALINE LOCKED. RIGHT UPPER CHEST WALL HD CATH PRESENT. STATUS POST EGD FROM THIS AM. SAFETY MEASURES IN PLACE. CALL LIGHT WITHIN REACH. WILL ENDORSE TO IT SUPPORT MANAGER NURSE FOR LOKESH. Addendum: 01/07/21 at 1829 by OLIVIER ZAMORA RN CLOSING NOTES
--- NOTE | 2021-01-07 19:30 | NUR ---
RN OPENING NOTE PATIENT IN BED AWAKE, PATIENT IS ABLE TO MAKE NEEDS KNOWN. PATIENT IS S/P EGD TODAY. PATIENT HAS A EVA MIDLINE, PATENT AND INTACT, AND A RCW HD CATH. EDUCATED PATIENT ON WHEN MEDS ARE DUE. ENDORSED LOW PLATELET OF 38, PER RN, THERE'S SHORTAGE OF PLT IN LAB. SAFETY MEASURES IN PLACE: BED LOCKED AND IN LOWEST POSITION, CALL LIGHT WITHIN REACH, SIDE RAILS UP, BED ALARM ON. WILL MONITOR PATIENT CLOSELY.
[2021-01-07 20:00] VITALS: BP 102/65
--- NOTE | 2021-01-07 20:45 | NUR ---
RN NOTE MORPHINE GIVEN FOR BACK PAIN 01/09. WILL REASSESS MED EFFECTIVENESS AND ASSESS PAIN
[2021-01-08] MEDS: MORPHINE SULFATE INJ 2 MG/ML DISP.SYRIN IV PRN ×5 (00:50→19:01)
--- NOTE | 2021-01-08 00:53 | NUR ---
RN NOTE MORPHINE GIVEN FOR BACK PAIN 02/08. WILL REASSESS MED EFFECTIVENESS AND ASSESS PAIN
--- NOTE | 2021-01-08 06:46 | NUR ---
RN NOTE PATIENT REFUSED TO HAVE WEIGHT TAKEN, HAVE THE HOB DOWN AND BLANKETS OFF
--- NOTE | 2021-01-08 06:53 | NUR ---
RN CLOSING NOTE PATIENT IN BED, EYES OPEN. PATIENT IS ABLE TO MAKE NEEDS KNOWN A/O X 3. EVA MIDLINE PATENT AND INTACT. WOUND CARE RENDERED. PAIN MANAGED WITH MORPHINE 2 MG Q4HR. PATIENT STILL ON 3 L OF OXYGEN SUPPLEMENTATION. SAFETY MEASURES IMPLEMENTED. ALL ORDERS CARRIED OUT, ALL NEEDS MET AND ATTENDED. NO SIGNIFICANT CHANGES ON PATIENT'S CONDITION. WILL ENDORSE TO DAY SHIFT NURSE FOR LOKESH.
--- NOTE | 2021-01-08 07:43 | NUR ---
MS RN OPENING NOTES RECEIVED PATIENT IN BED, AWAKE AND WATCHING TV. A/O X3. ON 3L OXYGEN VIA NASAL CANNULA - TOLERATING WELL. NO SOB NOTED. NO DISTRESS/DISCOMFORT NOTED. IV ACCESS TO LEFT UA - MIDLINE, SALINE LOCKED. RIGHT UPPER CHEST WALL HD CATH PRESENT. SAFETY MEASURES IN PLACE. CALL LIGHT WITHIN REACH. WILL CONTINUE TO MONITOR.
[2021-01-08 08:00] VITALS: BP 92/61
[2021-01-08] MEDS: ENSURE CLEAR 237 ML LIQUID (MIX BERRY) PO SCH ×3 (08:00→16:39)
[2021-01-08] MEDS: RIFAXIMIN 550 MG TABLET PO SCH ×2 (08:09→16:29)
[2021-01-08] MEDS: LACTULOSE 10 G/15 ML UDC (PYXIS) PO SCH ×2 (08:10→16:29)
[2021-01-08] MEDS: FUROSEMIDE 40 MG/4 ML VIAL IV SCH ×2 (08:10→16:30)
[2021-01-08] MEDS: MIDODRINE HCL (5MG) 5 MG TABLET PO SCH ×3 (08:10→16:30)
[2021-01-08] MEDS: FAMOTIDINE (20 MG) 20 MG TABLET PO SCH (08:11)
[2021-01-08] MEDS: Z GUARD REMEDY 2 OZ OINT TP SCH (08:14)
[2021-01-08] MEDS ORDERED: SPIRONOLACTONE 25 MG TABLET PO SCH (09:00)
[2021-01-08] MEDS ORDERED: SPIR25TA6 PO (10:41)
[2021-01-08 11:25] LABS: CALCIUM, SERUM 7.7 mg/dL (8.5-10.1); POTASSIUM 3.4 mmol/L (3.5-5.1)
[2021-01-08 11:33] LABS: BASOPHILS % (AUTO) 0.1 % (0.0-2.0); EOSINOPHILS % (AUTO) 1.6 % (0.0-6.0); HEMATOCRIT 23 % (39-51); HEMOGLOBIN 7.5 g/dL (13.5-17.5); LYMPHOCYTES # (AUTO) 0.9 K/uL (0.8-4.8); LYMPHOCYTES % (AUTO) 8.4 % (20.0-44.0); MEAN CORPUSCULAR HGB CONC 33 g/dl (31.0-36.0); MEAN CORPUSCULAR VOLUME 106 fL (80-96); MONOCYTES # (AUTO) 1.7 K/uL (0.1-1.30); MONOCYTES % (AUTO) 16.6 % (2.0-12.0); NEUTROPHILS # (AUTO) 7.5 K/uL (1.8-8.9); NEUTROPHILS % (AUTO) 73.3 % (43.0-81.0); RED BLOOD CELL COUNT(AUTO) 2.13 MIL/uL (4.5-6.0); WHITE BLOOD COUNT (AUTO) 10.2 K/uL (4.3-11.0)
[2021-01-08 11:40] LABS: PLATELET COUNT (AUTO) 47 K/uL (150-450)
[2021-01-08] MEDS ORDERED: ALBUMIN 25% 25 GM in PREMIX 1 EA IV ONE (13:30)
[2021-01-08 15:58] LABS: EOSINOPHILS % (MANUAL) 1 % (0-4); LYMPHOCYTES % (MANUAL) 5 % (16-48); MONOCYTES % (MANUAL) 9 % (0-11.0); NEUTROPHILS % (MANUAL) 85 (42-76)
[2021-01-08 16:00] VITALS: BP 85/49
[2021-01-08 16:30] VITALS: BP 85/49
--- NOTE | 2021-01-08 19:15 | NUR ---
MS FIELD SPECIALIST NOTE PATIENT DISCHARGED VIA AMBULANCE. PARACENTESIS DONE BEFORE BY JESSICA JENSEN - 4L OUT. MORPHINE 2MG IV ADMINISTERED RIGHT AFTER. PATIENT STABLE, A/O X4. ON 3L OXYGEN - TOLERATING WELL. NO SOB NOTED. NO DISTRESS/DISCOMFORT NOTED. PATIENT HAD DIALYSIS TODAY WITH 600ML OUT DUE TO LOW BP. PATIENT REFUSED DISCHARGE PHOTOS AND WOUND CARE. LEFT UPPER ARM MIDLINE LEFT IN - PATIENT TO CONTINUE ANTIBIOTICS. ALL EXITCARE AND PATIENT EDUCATION REVIEWED WITH PATIENT AND GIVEN IN FOLDER. WRISTBAND REMOVED. MD AND CHARGE NURSE AWARE OF DISCHARGE.
[2021-01-09] MEDS ORDERED: MIDODRINE HCL (5MG) 5 MG TABLET PO SCH (09:00)
== END 2021-01-08 19:00 | DRG 720 ==
LOC: ER 19:28 → TELE-TD 21:52 → TELE1 12-31 09:28 → MEDSG1 01-02 08:08 → MED 01-03 04:45
PROVIDERS: ADMIT Hospitalist; ATTEND Nurse Practitioner Acute Care
PROC: 30233N1 Transfusion of Nonautologous Red Blood Cells into Peripheral Vein, Percutaneous Approach (ICD-10-PCS; 2020-12-30)
PROC: 5A1D70Z Performance of Urinary Filtration, Intermittent, Less than 6 Hours Per Day (ICD-10-PCS; 2020-12-31)
PROC: 05HB33Z Insertion of Infusion Device into Right Basilic Vein, Percutaneous Approach (ICD-10-PCS; 2020-12-31)
PROC: 0DB98ZX Excision of Duodenum, Via Natural or Artificial Opening Endoscopic, Diagnostic (ICD-10-PCS; principal; 2021-01-07)
PROC: 0DB68ZX Excision of Stomach, Via Natural or Artificial Opening Endoscopic, Diagnostic (ICD-10-PCS; 2021-01-07)
PROC: 0DJ08ZZ Inspection of Upper Intestinal Tract, Via Natural or Artificial Opening Endoscopic (ICD-10-PCS; 2021-01-07)
PROC: 0W9G3ZZ Drainage of Peritoneal Cavity, Percutaneous Approach (ICD-10-PCS; 2021-01-08)
DX: A41.51 Sepsis due to Escherichia coli [E. coli] (principal); K72.00 Acute and subacute hepatic failure without coma; K76.7 Hepatorenal syndrome; I21.4 Non-ST elevation (NSTEMI) myocardial infarction; E44.0 Moderate protein-calorie malnutrition; G92 Toxic encephalopathy; E72.20 Disorder of urea cycle metabolism, unspecified; D68.9 Coagulation defect, unspecified; J18.9 Pneumonia, unspecified organism; E87.2 Acidosis; I50.33 Acute on chronic diastolic (congestive) heart failure; D69.6 Thrombocytopenia, unspecified; I13.2 Hypertensive heart and chronic kidney disease with heart failure and with stage 5 chronic kidney disease, or end stage renal disease; N18.6 End stage renal disease; E11.22 Type 2 diabetes mellitus with diabetic chronic kidney disease; K74.60 Unspecified cirrhosis of liver; Z99.2 Dependence on renal dialysis; Z20.822 Contact with and (suspected) exposure to COVID-19; Z79.899 Other long term (current) drug therapy; B19.20 Unspecified viral hepatitis C without hepatic coma; I25.10 Atherosclerotic heart disease of native coronary artery without angina pectoris; I87.2 Venous insufficiency (chronic) (peripheral); K31.89 Other diseases of stomach and duodenum; K44.9 Diaphragmatic hernia without obstruction or gangrene; K76.6 Portal hypertension; D64.9 Anemia, unspecified; G89.4 Chronic pain syndrome; E66.9 Obesity, unspecified; Z68.31 Body mass index [BMI] 31.0-31.9, adult; J98.11 Atelectasis; I25.2 Old myocardial infarction; I87.311 Chronic venous hypertension (idiopathic) with ulcer of right lower extremity; L97.919 Non-pressure chronic ulcer of unspecified part of right lower leg with unspecified severity; L89.626 Pressure-induced deep tissue damage of left heel; L89.616 Pressure-induced deep tissue damage of right heel; N17.9 Acute kidney failure, unspecified; K80.20 Calculus of gallbladder without cholecystitis without obstruction
CPT/HCPCS: 36410; 36415; 70450-TC; 71045-TC; 76705-TC; 76942-TC; 80048-TC; 80053-TC; 80061-TC; 80076-TC; 80170-TC; 80202-TC; 82140-TC; 82962-TC; 83540-TC; 83605-TC; 83690-TC; 83735-TC; 84100-TC; 84484-TC; 85025-TC; 85730-TC; 86704; 86850-TC; 87040-TC; 87081-TC; 87186-TC; 87340; 90935-TC; A4216; A6253; A6403; C9803; G0378; J0696; J1580; J1630; J1940; J2185; J2270; J2543; J2704; J3370; J3480; J3490; J7030; J7050; J7060; P9016; P9047

== ENCOUNTER 2021-01-13 22:02 | Inpatient (IN) | payer OTHER ==
[~2021-01-13] VITALS: Ht 172.7 cm; Wt 96.6 kg
[~2021-01-13 22:02] MED LIST changes: -ASCO500C17 PO; +FOLI0.8T2 PO; -FURO-144 PO; -MAGN400O6 PO; -MELA5TAB PO; +MIDO10TA PO; -MULT-188 PO; -NA P133E RC; -OMEP40CA21 PO; -ONDA4TAB11 PO; +PANT40TA2 PO; +RXGEN XX; +SEVE800T28 PO
--- NOTE | 2021-01-13 22:34 | NUR ---
BIB AMBULANCE. TO BED 6. A/OX3. C/O ABDOMINAL PAIN.
--- NOTE | 2021-01-13 22:41 | NUR ---
PATIENT TO CT
--- NOTE | 2021-01-13 23:01 | NUR ---
PATIENT HAS A EVA MIDLINE, FLUSHES WELL, ABLE TO GET BLOOD RETURN. LABS DRAWN, COVID SWAB AND MRSA SWAB SENT TO LAB.
[2021-01-13 23:10] LABS: BASOPHILS # (AUTO) 0.1 K/uL (0.0-0.2); EOSINOPHILS % (AUTO) 0.2 % (0.0-6.0); WHITE BLOOD COUNT (AUTO) 12.2 K/uL (4.3-11.0)
[2021-01-13 23:14] LABS: BASOPHILS % (AUTO) 0.6 % (0.0-2.0); HEMATOCRIT 22 % (39-51); HEMOGLOBIN 7.6 g/dL (13.5-17.5); MEAN CORPUSCULAR HGB CONC 35 g/dl (31.0-36.0); MEAN CORPUSCULAR VOLUME 106 fL (80-96); MONOCYTES # (AUTO) 1.6 K/uL (0.1-1.30); NEUTROPHILS # (AUTO) 9.5 K/uL (1.8-8.9); NEUTROPHILS % (AUTO) 78.2 % (43.0-81.0); PLATELET COUNT (AUTO) 96 K/uL (150-450); RED BLOOD CELL COUNT(AUTO) 2.09 MIL/uL (4.5-6.0)
[2021-01-13 23:15] LABS: CALCIUM, SERUM 8.6 mg/dL (8.5-10.1); CARBON DIOXIDE 18 mmol/L (21-32); CHLORIDE 96 mmol/L (98-107); GLUCOSE 71 mg/dL (74-106); SODIUM SERUM 131 mmol/L (136-145); UREA NITROGEN, BLOOD 72 mg/dL (7-18)
[2021-01-13 23:21] LABS: ALANINE AMINOTRANSFERASE 33 U/L (12-78); ALBUMIN 1.8 g/dL (3.4-5.0); ALKALINE PHOSPHATASE 112 U/L (46-116); ASPARTATE AMINOTRANSFERASE 104 U/L (15-37); BILIRUBIN,DIRECT 7.6 mg/dL (0.0-0.2); LIPASE 191 U/L (73-393); TOTAL PROTEIN, SERUM 6.9 g/dL (6.4-8.2)
--- NOTE | 2021-01-13 23:35 | NUR ---
INFORM MD OF PATIENTS ABDOMINAL PAIN, NO ORDERS GIVEN D/T LOW BP.
[2021-01-13 23:38] LABS: SERUM AMMONIA 84 umol/L (11-32)
[2021-01-14] MEDS ORDERED: MORPHINE SULFATE INJ 2 MG/ML DISP.SYRIN IV PRN
[2021-01-14] MEDS ORDERED: ENOXAPARIN SODIUM 40 MG/0.4 ML DISP.SYRIN SQ SCH
[2021-01-14] MEDS ORDERED: LABETALOL 20 MG/4 ML VIAL IV PRN
[2021-01-14] MEDS ORDERED: LACTULOSE 10 G/15 ML UDC (PYXIS) PO ONE
[2021-01-14] MEDS ORDERED: MAG HYDROX/AL HYDROX/SIMETH 30 ML UDC PO PRN
[2021-01-14] MEDS ORDERED: ONDANSETRON HCL/PF 4 MG/2 ML VIAL IVP PRN
[2021-01-14] MEDS ORDERED: hydrALAZINE HCL IV 20 MG VIAL IV PRN
[2021-01-14] MEDS ORDERED: ACETAMINOPHEN 325 MG TABLET PO PRN
[2021-01-14] MEDS ORDERED: LACTULOSE 10 G/15 ML UDC (PYXIS) ONE (00:02)
[2021-01-14 00:22] LABS: LYMPHOCYTES % (MANUAL) 3 % (16-48); NEUTROPHILS % (MANUAL) 90 (42-76)
[2021-01-14] MEDS ORDERED: ALBUMIN 25% 100 ML IV ONE (00:22)
[2021-01-14 00:23] LABS: MONOCYTES % (MANUAL) 7 % (0-11.0)
[2021-01-14] MEDS: MIDODRINE HCL (5MG) 5 MG TABLET PO SCH ×4 (00:26→17:01)
[2021-01-14] MEDS: ALBUMIN 25% 25 GM in PREMIX 1 EA IV SCH ×2 (00:26→11:32)
[2021-01-14] MEDS: oxyCODONE IR immediate release 5 MG PO SCH ×3 (05:00→20:58)
[2021-01-14 05:02] LABS: BASOPHILS # (AUTO) 0.1 K/uL (0.0-0.2); BASOPHILS % (AUTO) 0.6 % (0.0-2.0); EOSINOPHILS % (AUTO) 0.2 % (0.0-6.0); LYMPHOCYTES # (AUTO) 0.8 K/uL (0.8-4.8); MEAN CORPUSCULAR HGB CONC 34 g/dl (31.0-36.0); MEAN CORPUSCULAR VOLUME 107 fL (80-96); MONOCYTES # (AUTO) 1.3 K/uL (0.1-1.30); MONOCYTES % (AUTO) 11.5 % (2.0-12.0); NEUTROPHILS # (AUTO) 9.4 K/uL (1.8-8.9); NEUTROPHILS % (AUTO) 80.7 % (43.0-81.0); PLATELET COUNT (AUTO) 83 K/uL (150-450); WHITE BLOOD COUNT (AUTO) 11.6 K/uL (4.3-11.0)
[2021-01-14 05:03] LABS: HEMATOCRIT 20 % (39-51); RED BLOOD CELL COUNT(AUTO) 1.84 MIL/uL (4.5-6.0)
[2021-01-14 05:06] LABS: HEMOGLOBIN 6.7 g/dL (13.5-17.5)
[2021-01-14 05:14] LABS: ALBUMIN 1.9 g/dL (3.4-5.0); BILIRUBIN,TOTAL 13.4 mg/dL (0.2-1.0); CALCIUM, SERUM 8.5 mg/dL (8.5-10.1); CREATININE 6.1 mg/dL (0.6-1.3); MAGNESIUM 2.2 mg/dL (1.8-2.4); PHOSPHORUS 6.8 mg/dL (2.5-4.9); POTASSIUM 4.1 mmol/L (3.5-5.1); TOTAL PROTEIN, SERUM 6.4 g/dL (6.4-8.2)
--- NOTE | 2021-01-14 05:22 | NUR ---
INFORMED DR. AGARWAL THAT PATIENT BP IS CONSISTANTLY 90/50S, HAS OXY IR 10MG SCHEDULED. PER MD HOLD FOR SBP LESS THAN 100. ORDER READ BACK NOTED AND CARRIED OUT.
--- NOTE | 2021-01-14 05:24 | NUR ---
INFORMED DR. AGARWAL THAT PATIENT CRITICAL LAB FOR HGB 6.7. ORDER FOR 1 UNIT PRBC NOW AND REPEAT H/H 30 MINS TRANSFUSION COMPLETION. ORDER READ BACK NOTED AND CARRIED OUT.
[2021-01-14 05:26] LABS: LYMPHOCYTES % (MANUAL) 5 % (16-48); MONOCYTES % (MANUAL) 4 % (0-11.0); NEUTROPHILS % (MANUAL) 91 (42-76)
--- NOTE | 2021-01-14 06:09 | NUR ---
PATIENT UNABLE TO SIGN FOR BLOOD CONSENT. CALLED SISTER VIA TELEPHONE AT [phone]. OBTAINED VERBAL CONSENT, SECOND BY KRYSTAL DAWSON.
--- NOTE | 2021-01-14 06:36 | NUR ---
BEGAN BLOOD TRANSFUSION , SECOND BY KRYSTAL DAWSON. REVEIWED PATIENT NAME, , BLOOD TYPE, ACOUNT NUMBER, MED RECORD #, BLOOD WRIST BAND #, BLOOD UNIT #, AND EXPIRATION DATE, NO LEAKING, CLOTS OR DISCOLORATION.
--- NOTE | 2021-01-14 06:45 | NUR ---
GAVE REPORT TO ROBIN DAWSON
[2021-01-14 07:06] VITALS: BP 108/68
--- NOTE | 2021-01-14 07:11 | NUR ---
TRANSFERED PATIENT TO BED 102 VIA ACLS PROTOCOL. WITH ALL BELONINGS.
--- NOTE | 2021-01-14 07:35 | NUR ---
RN NOTE RECEIVED REPORT FROM EUNICE KELLY FOR LOKESH. PATIENT IS CURRENTLY RECEIVING 1 UNIT PRBC.
[2021-01-14 07:36] VITALS: BP 114/71
[2021-01-14] MEDS: TRAMADOL HCL 50 MG TABLET PO PRN ×2 (07:43→21:42)
[2021-01-14 08:00] VITALS: BP 108/68
[2021-01-14] MEDS: PANTOPRAZOLE 40 MG TABLET.DR PO SCH ×2 (08:09→20:58)
[2021-01-14] MEDS: SEVELAMER CARBONATE 800 MG TABLET PO SCH ×3 (08:09→17:00)
[2021-01-14] MEDS: RIFAXIMIN 550 MG TABLET PO SCH (08:09)
[2021-01-14] MEDS: LACTULOSE 10 G/15 ML UDC (PYXIS) PO SCH ×4 (08:09→20:57)
[2021-01-14] MEDS: SPIRONOLACTONE 25 MG TABLET PO SCH (08:38)
--- NOTE | 2021-01-14 09:00 | NUR ---
RN NOTE PATIENT REFUSED POSTERIOR BACK/SACRAL SKIN ASSESSMENT.
--- NOTE | 2021-01-14 09:10 | NUR ---
RN NOTE BLOOD TRANSFUSION COMPLETE WITH V/S 97.9 TEMP, 86 HR, 19 RR, 111/74 BP. UNABLE TO DOCUMENT IN BLOOD TRANSFUSION SECTION OF EMAR.
--- NOTE | 2021-01-14 10:17 | NUR ---
INFORMED EUNICE ODOM PER RADIOLOGY INR NEEDS TO BE CORRECTED PRIOR TO PERFORMING US GUIDED THORA AND PARACENTESIS.
--- NOTE | 2021-01-14 10:19 | NUR ---
RN NOTE NOTIFIED ELECTRIC FORK OPERATOR LNIO OF RADIOLOGY NOT BEING ABLE TO PERFORM THORACENTESIS OR PARACENTESIS UNTIL INR IS CORRECTED.
[2021-01-14] MEDS ORDERED: PHYTONADIONE INJ 10 MG/1 ML AMPUL SQ ONE (11:00)
--- NOTE | 2021-01-14 11:08 | NUR ---
WOUND CARE CONSULT: REVIEWED CHART, NURSING DOCUMENTATION AND PHOTOS WHICH INDICATE SACRAL SCARRING AND WEEPING OF LOWER LEGS WITH HEEL DEEP TISSUE INJURY, PRESENT ON ADMISSION. RECOMMEND DPM CONSULT. DR ROSADO CALLED. RECOMMENDATIONS MADE FOR SKIN PROTECTION. DISCUSSED WITH NURSING STAFF. MD IN AGREEMENT WITH PLAN OF CARE. PATRICIA ISOFLEX LOW AIRLOSS BED TO BE PLACED.
[2021-01-14] MEDS: Z GUARD REMEDY 2 OZ OINT TP SCH (11:27)
[2021-01-14 12:00] VITALS: BP 100/50
[2021-01-14 16:00] VITALS: BP 90/51
--- NOTE | 2021-01-14 18:42 | NUR ---
RN NOTE PATIENT IS IN BED WITH HOB AT SEMI FOWLERS POSITION. PATIENT IS ON ROOM AIR WITH NO SIGNS OF LABORED BREATHING. PATIENT IS AOX3. EVA MIDLINE IS PATENT AND INTACT. BED IS LOCKED IN THE LOWEST POSITION, 3 GUARD RAILS RAISED, CALL WHITLOCK WITHIN REACH, AND ALL HOSPITAL SAFETY PRECAUTIONS ARE BEING FOLLOWED. PATIENT REMAINED STABLE THROUGHOUT SHIFT. WILL ENDORSE TO LAMP DEVELOPER RN.
--- NOTE | 2021-01-14 19:35 | NUR ---
RN NOTE PT RECEIVED IN BED. PT IS ON ROOM AIR SHOWING NO S/S OF RESP DISTRESS/SOB. PT IS A/OX3. PT ON TELE MONITOR SHOWING NSR. LEFT UPPER ARM ML NOTED. LINE FLUSHED, PATENT, AND INTACT WITH NO INFILTRATION. HD CATH ON RIGHT CHEST NOTED. PT CURRENTLY RECEIVING DIALYSIS. ALL SAFETY MEASURES IMPLEMENTED. CALL LIGHT WITHIN REACH. BED ALARM ON. BED LOCKED AND IN LOWEST POSITION. WILL CONTINUE TO MONITOR AND ASSESS FOR ANY CHANGES.
[2021-01-14 20:00] VITALS: BP 90/45
--- NOTE | 2021-01-14 22:22 | NUR ---
RN NOTE PT C/O 10/[address] AMEZQUITA ABOUT PT'S CURRENT PAIN MEDICATION ORDERS AND HOW PT'S BASELINE BP IS IN 90s. DR. AMEZQUITA ORDERED FENTANYL PATCH 50 MCG Q72HRS. WILL CARRY OUT ORDER.
[2021-01-14] MEDS ORDERED: FENTANYL TD PATCH (50 MCG/HR) 50 MCG/HR PATCH.TD72 TD SCH (22:30)
--- NOTE | 2021-01-14 23:00 | NUR ---
RN NOTE RE-ASSESSED PT AFTER APPLYING FENTANYL PATCH PER MD ORDER. PT IS MUCH MORE COMFORTABLE NOW AND IS NOT IN ANY DISTRESS STATING HIS PAIN IS BETTER. WILL CONTINUE TO MONITOR AND ASSESS FOR ANY CHANGES.
[2021-01-15] VITALS (9 sets, daily range): BP systolic 78–120; BP diastolic 43–62
--- NOTE | 2021-01-15 01:00 | NUR ---
RN NOTE SPOKE WITH DR. AMEZQUITA ABOUT DR. LINO ORDER OF PLASMA. DR. AMEZQUITA SAID OKAY TO GIVE PLASMA AND TO ORDER STAT CBC AFTER COMPLETION OF PLASMA. WILL CARRY OUT ORDER AND CONTINUE TO MONITOR PATIENT FOR ANY CHANGES.
[2021-01-15 04:12] LABS: BASOPHILS % (AUTO) 0.5 % (0.0-2.0); EOSINOPHILS % (AUTO) 0.5 % (0.0-6.0); HEMOGLOBIN 7.2 g/dL (13.5-17.5); LYMPHOCYTES # (AUTO) 0.9 K/uL (0.8-4.8); MEAN CORPUSCULAR HGB CONC 35 g/dl (31.0-36.0); MEAN CORPUSCULAR VOLUME 102 fL (80-96); MONOCYTES # (AUTO) 1.5 K/uL (0.1-1.30); MONOCYTES % (AUTO) 14.9 % (2.0-12.0); NEUTROPHILS # (AUTO) 7.4 K/uL (1.8-8.9); NEUTROPHILS % (AUTO) 75.1 % (43.0-81.0); PLATELET COUNT (AUTO) 58 K/uL (150-450); WHITE BLOOD COUNT (AUTO) 9.8 K/uL (4.3-11.0)
[2021-01-15 04:13] LABS: HEMATOCRIT 20 % (39-51)
[2021-01-15 04:28] LABS: CALCIUM, SERUM 8.3 mg/dL (8.5-10.1); CREATININE 4.6 mg/dL (0.6-1.3); MAGNESIUM 2.2 mg/dL (1.8-2.4); POTASSIUM 3.8 mmol/L (3.5-5.1)
--- NOTE | 2021-01-15 04:30 | NUR ---
RN NOTE SPOKE WITH DR. AMEZQUITA ABOUT PT'S PLATELET LEVEL OF 58. STATED NO NEW ORDERS. WILL CONTINUE TO MONITOR FOR ANY CHANGES.
[2021-01-15] MEDS: oxyCODONE IR immediate release 5 MG PO SCH ×4 (05:23→21:19)
[2021-01-15 05:36] LABS: BASOPHILS % (MANUAL) 0 % (0.0-2.0); EOSINOPHILS % (MANUAL) 0 % (0-4); LYMPHOCYTES % (MANUAL) 4 % (16-48); MONOCYTES % (MANUAL) 9 % (0-11.0); NEUTROPHILS % (MANUAL) 87 (42-76)
--- NOTE | 2021-01-15 06:52 | NUR ---
RN NOTE PT IS ON ROOM AIR SHOWING NO S/S OF RESP DISTRESS/SOB. PT IS A/OX3. PT ON TELE MONITOR SHOWING NSR. LEFT UPPER ARM ML NOTED. LINE FLUSHED, PATENT, AND INTACT WITH NO INFILTRATION. HD CATH ON RIGHT CHEST NOTED. 1000ML REMOVED DURING DIALYSIS. ALL DUE MEDS GIVEN ORDERED. PT KEPT CLEAN AND COMFORTABLE. ALL SAFETY MEASURES IMPLEMENTED. CALL LIGHT WITHIN REACH. BED ALARM ON. BED LOCKED AND IN LOWEST POSITION. WILL ENDORSE TO MORNING SHIFT RN FOR LOKESH.
--- NOTE | 2021-01-15 07:39 | NUR ---
TELECOM ANALYST NOTE PATIENT IN BED RESTING COMFORTABLY AT THIS TIME, ON TELE MONITOR SR HR 80, LT UA MID LINE IN PLACE , BED IN LOWEST AND LOCKED POSITION,CANDLELIGHT WITHIN REACH , NO SOB NOTED AT THIS TIME ,WILL CONT TO MONITOR
--- NOTE | 2021-01-15 07:41 | NUR ---
DESIGN RELEASE ENGINEER NOTE PATIENT IN BED, ALERT ORIENTED ON TELEMONITOR SR HR 88 ,RT FA HL INTACT AND FLUSHED WELL, ON IVF ORDERED, BED IN LOWEST AND LOCKED POSITION, CALL LIGHT WITHIN REACH, NO SOB NOTED AT THIS TIME, ON RA WILL MONITOR Addendum: 01/15/21 at 0745 by ROS MORAN RN WRONG ENTRY
[2021-01-15] MEDS: SPIRONOLACTONE 25 MG TABLET PO SCH (09:00)
[2021-01-15] MEDS: MIDODRINE HCL (5MG) 5 MG TABLET PO SCH ×3 (09:38→16:26)
[2021-01-15] MEDS: RIFAXIMIN 550 MG TABLET PO SCH (09:39)
[2021-01-15] MEDS: LACTULOSE 10 G/15 ML UDC (PYXIS) PO SCH ×5 (09:39→21:19)
[2021-01-15] MEDS: PANTOPRAZOLE 40 MG TABLET.DR PO SCH ×3 (09:39→21:18)
[2021-01-15] MEDS: SEVELAMER CARBONATE 800 MG TABLET PO SCH ×3 (09:41→17:22)
[2021-01-15] MEDS: Z GUARD REMEDY 2 OZ OINT TP PRN (09:49)
[2021-01-15] MEDS: Z GUARD REMEDY 2 OZ OINT TP SCH (09:50)
--- NOTE | 2021-01-15 10:26 | NUR ---
telephone plant power operator note consent for paracentesis done , doing procedure now md aware that bp 89/43
--- NOTE | 2021-01-15 11:41 | NUR ---
STOCK WETTER NOTE PARACENTESIS DONE 5200ML OF FLUIDS REMOVED TELE , DR MARTIN ADMINISTRATIVE COURT JUSTICE AWARE THAT BP 89/43 AWARE BOTH LEGS SWELLING
[2021-01-15] MEDS ORDERED: ALBUMIN 25% 12.5 GM/50 ML BOTTLE IV ONE (12:00)
--- NOTE | 2021-01-15 12:41 | NUR ---
TAKER OFF NOTE FLUIDS FROM PARACANTHOSIS SENT TO LAB
--- NOTE | 2021-01-15 14:59 | NUR ---
director television note sister called updated patient condition Addendum: 01/15/21 at 1505 by ROS MORAN RN spoke with Guido Olivo dnp stated that called sister and discussed code status
--- NOTE | 2021-01-15 15:10 | NUR ---
HOSE INSPECTOR AND PATCHER NOTE SPOKE WITH SISTER ,UPDATED PATIENT CONDITION , NOTIFIED THAT PATIENT IS VERY WEAK AND REFUSED TO EAT , ASKED HER IF SHE CAN TALK WITH PATIENT AND ENCOURAGE TO EAT , SHE SPOKE WITH PATIENT
--- NOTE | 2021-01-15 17:46 | NUR ---
STRANDING MACHINE OPERATOR HELPER NOTE TAKEN TO CT SCAN ABDOMEN
--- NOTE | 2021-01-15 17:58 | NUR ---
ASSEMBLER UNIT NOTE HG 7.0 DR GIANCARLO LINO NOTIFIED NO NEW ORDER GIVEN AT THIS TIME
--- NOTE | 2021-01-15 18:26 | NUR ---
HYDRAULIC ROCKBREAKER OPERATOR NOTE PATIENT IN BED , ALL NEEDS ATTENDED, TURN REPOSITION DONE, LT UPPER ARM MID LINE IN PLACE AND FLUSHED WELL HD CATH IN PLACED AND INTACT DRESSING , BED IN LOWEST AND LOCKED POSITION, ON RA NO SOB NOTED AT THIS TIME , REFUSED TO EAT DINNER , DESPITE EXPLANATION OF IMPORTANCE TO EAT , CALL LIGHT WITHIN REACH, WILL MONITOR Addendum: 01/15/21 at 1836 by ROS MORAN RN NOTIFIED TO DR EUNICE MONGE THAT PATENT HAS VERY POOR APPETITE, REFUSING FOOD AND ITS HARD TO GIVE MEDICATION
--- NOTE | 2021-01-15 19:49 | NUR ---
DAYCARE DIRECTOR OPENING NOTES Patient is A&Ox1. Responds to loud noise and touch. Skin is yellow/jaundiced, abdomen is distended, BLE are edematous and R calf is weeping. Breathing is not labored. NSR on monitor at this time. Patient denies pain and there are no signs of pain or discomfort at this time. No facial grimacing, no restlessness. EVA midline flushed and patent. HD cath to R chest intact and free from s/s of infection.
--- NOTE | 2021-01-15 22:00 | NUR ---
Patient refused all meds. Will contact
[2021-01-15] MEDS ORDERED: LACTULOSE UDC 200 G in SODIUM CHLORIDE IRRIG SOLUTION 400 ML IR ONE (23:00)
--- NOTE | 2021-01-15 23:02 | NUR ---
Patient refused PO lactulose and is A&Ox1, eyes open but responsive to touch only. MD stated can do lactulose rectally. Called pharmacy to verify dose for rectal administration for hepatic encephalopathy. stated it was the 200G enema.
[2021-01-16] VITALS: BP 92/53
--- NOTE | 2021-01-16 01:00 | NUR ---
not enough lactulose per set up and charger and color making supervisor. said okay to wait til AM to give rectal enema lactulose for hepatic encephalopathy. Reassess mental status after 1st dose and see if patient can take next dose PO or not -will endorse.
[2021-01-16 04:00] VITALS: BP 90/43
[2021-01-16] MEDS: oxyCODONE IR immediate release 5 MG PO SCH ×3 (04:36→21:00)
--- NOTE | 2021-01-16 07:02 | NUR ---
Patient has been A&Ox1, eyes move to voice but only talks when touched. VSS. No clinical indications of pain or discomfort. kept clean and dry. Has been NSR on monitor. Wound care provided to BLE and sacrum. Refused all meds-md aware. EVA midline intact and patent. R chest HD cath intact, no s/s of infection.
[2021-01-16 08:00] VITALS: BP 84/49
[2021-01-16] MEDS: SEVELAMER CARBONATE 800 MG TABLET PO SCH ×3 (08:00→18:00)
[2021-01-16] MEDS: RIFAXIMIN 550 MG TABLET PO SCH (09:00)
[2021-01-16] MEDS ORDERED: LACTULOSE UDC 200 G in SODIUM CHLORIDE IRRIG SOLUTION 400 ML IR ONE (09:00)
[2021-01-16] MEDS: SPIRONOLACTONE 25 MG TABLET PO SCH (09:00)
[2021-01-16] MEDS: MIDODRINE HCL (5MG) 5 MG TABLET PO SCH ×3 (09:00→17:24)
[2021-01-16] MEDS: PANTOPRAZOLE 40 MG TABLET.DR PO SCH ×2 (09:00→21:00)
[2021-01-16] MEDS: Z GUARD REMEDY 2 OZ OINT TP PRN (09:04)
[2021-01-16] MEDS: Z GUARD REMEDY 2 OZ OINT TP SCH (09:05)
[2021-01-16] MEDS ORDERED: NEPRO VAN 237 ML CAN PO PRN (09:30)
--- NOTE | 2021-01-16 09:35 | NUR ---
Patient refused all morning meds. will continue to monitor
[2021-01-16 12:00] VITALS: BP 108/55
[2021-01-16] MEDS ORDERED: LACTULOSE 10 G/15 ML UDC (PYXIS) PO SCH (13:00)
[2021-01-16] MEDS: LACTULOSE UDC 200 G in SODIUM CHLORIDE IRRIG SOLUTION 400 ML IR SCH ×2 (13:18→17:00)
--- NOTE | 2021-01-16 15:18 | NUR ---
OBTAINED TELEPHONE CONSENT FROM CHARLENE BLANCA ([phone]) -PATIENTS' SISTER AT THIS TIME FOR HEMODIALYSIS. CONSENT WITNESS BY EUNICE JARAMILLO. WILL CONTINUE WITH PLAN OF CARE
[2021-01-16] MEDS ORDERED: ALBUMIN 25% 12.5 GM/50 ML BOTTLE IV PRN (15:30)
[2021-01-16 16:00] VITALS: BP 90/40
[2021-01-16] MEDS ORDERED: EPOETIN ALFA (4000 UNIT) 4,000 UNIT/ML VIAL IV SCH (16:00)
[2021-01-16] MEDS: FUROSEMIDE 40 MG/4 ML VIAL IV SCH (17:00)
--- NOTE | 2021-01-16 17:21 | NUR ---
patient noted with low bp 90/40, hr 74, rr 18, t 97.7, spo2 98%. Gab Lora made aware. will continue with plan of care
--- NOTE | 2021-01-16 19:05 | NUR ---
END OF SHIFT REPORT PATIENT AWAKE IN BED AT THIS TIME. PATIENT REMAINED STABLE THROUGH OUT SHIFT. ALL CARE ADMINISTERED ANTICIPATED PER ORDER. PT REFUSED ORAL MEDICATIONS THROUGHOUT SHIFT. MIDODRINE SUCCESSFULLY ADMINISTERED. IV ACCESS, INTACT, PATENT AND FLUSHING WELL. RIGHT CHEST WALL HD CATH INTACT, CLEAN AND DRY. ASPIRATION AND SAFETY PRECAUTIONS IN PLACE AND MAINTAINED AT ALL TIMES. BED IN LOWEST LOCKED POSITION, SIDE RAILS UPX2, HOB ELEVATED, CALL LIGHT AND TABLE WITHIN REACH. ENDORSED TO EUNICE HA FOR LOKESH
--- NOTE | 2021-01-16 19:30 | NUR ---
RN OPENING NOTE PATIENT IN BED, EYES OPEN. PATIENT A/O X 1 ONLY, PATIENT IS NOT VERBAL AT THIS TIME BUT MAKES SOUNDS AND GRUNTS. NAINA RN ENDORSED OF PATIENT'S LOW BP AND POOR APPETITE. PATIENT HAS A EVA MIDLINE AND A R CHEST WALL HD CATH. PATIENT ON ROOM AIR, NO SOB NOTICED. SAFETY MEASURES IN PLACE: BED LOCKED AND IN LOWEST POSITION, CALL LIGHT WITHIN REACH, SIDE RAILS UP. WILL MONITOR PATIENT CLOSELY.
[2021-01-16 20:00] VITALS: BP 93/50
--- NOTE | 2021-01-16 21:20 | NUR ---
RN NOTE OXY IR NOT GIVEN D/T PATIENT'S BP CONSISTENTLY LOW. PROTONIX PO NOT GIVEN EITHER PATIENT REFUSING MED WHEN OFFERED.
[2021-01-17] VITALS (8 sets, daily range): BP systolic 87–117; BP diastolic 43–67
--- NOTE | 2021-01-17 01:50 | NUR ---
RN NOTE PATIENT SCREAMING OF PAIN. MORPHINE GIVEN, BP IS CURRENTLY 104/56. WILL MONITOR FOR HYPOTENSION. PULLED OUT ANOTHER MORPHINE 2 MG/1 ML SYRINGE. I MADE A MISTAKE SPILLING THE MORPHINE FROM THE SYRINGE. CHANGE NURSE IS AWARE. AND IGNACIO QUALITY AND RELIABILITY ENGINEER WITNESS I GAVE THE DOSE AND WHEN I SPILLED THE FIRST MORPHINE. WILL NOTIFY PHARMACY IN AM.
[2021-01-17] MEDS: oxyCODONE IR immediate release 5 MG PO SCH ×3 (05:00→20:26)
--- NOTE | 2021-01-17 05:28 | NUR ---
RN NOTE BP 87/56, OXY IR NOT GIVEN
--- NOTE | 2021-01-17 06:46 | NUR ---
RN CLOSING NOTE PATIENT IN BED, EYES CLOSED. PATIENT EASILY AROUSED. PATIENT NOW TALKS BUT ONLY SAYS A FEW WORDS AND YELLS. PATIENT DOES NOT RESPOND PROPERLY WHEN BEING ASKED QUESTIONS. EVA MIDLINE PATENT AND INTACT, HD CATH ON R CHEST IN PLACE. WOUND CARE PROVIDED TO BOTH L AND R SOSA. PAIN MANAGED WITH MORPHINE WHEN BP STABLE. SAFETY MEASURES IMPLEMENTED. ALL ORDERS CARRIED OUT. ALL NEEDS MET AND ATTENDED. WILL ENDORSE TO DAY SHIFT NURSE. Addendum: 01/17/21 at 0702 by HALEY DIALLO RN PATIENT STABLE ON RA.
[2021-01-17 07:21] LABS: BASOPHILS % (AUTO) 0.1 % (0.0-2.0); EOSINOPHILS % (AUTO) 0.5 % (0.0-6.0); LYMPHOCYTES # (AUTO) 0.8 K/uL (0.8-4.8); MEAN CORPUSCULAR HGB CONC 34 g/dl (31.0-36.0); MEAN CORPUSCULAR VOLUME 105 fL (80-96); MONOCYTES # (AUTO) 1.6 K/uL (0.1-1.30); MONOCYTES % (AUTO) 14.5 % (2.0-12.0); NEUTROPHILS # (AUTO) 8.8 K/uL (1.8-8.9); NEUTROPHILS % (AUTO) 77.9 % (43.0-81.0); PLATELET COUNT (AUTO) 87 K/uL (150-450); WHITE BLOOD COUNT (AUTO) 11.4 K/uL (4.3-11.0)
[2021-01-17] MEDS: SEVELAMER CARBONATE 800 MG TABLET PO SCH ×4 (08:00→16:19)
--- NOTE | 2021-01-17 08:00 | NUR ---
RN NOTES RECEIVED PATIENT IN THE BED , CONFUSED, EYES OPEN , UNABLE TO VERBALIZE SELF BECAUSE OF WEAKNESS. BP 88/55, P-89.PATIENT HAS GENERALIZED EDEMA, DISTENDED ABDOMEN, JAUNDICE, YELLOW SKIN, MIDLINE ON LEFT UA INTACT, HD CATH ON RUC INTACT, REFUSED BREAKFAST, MULTIPLE WOUNDS. CALL LIGHT WITHIN TO REACH. ASSIST TURN AND REPOSTION Q 2 HR. WILL FOLLOW UP.
--- NOTE | 2021-01-17 08:10 | NUR ---
rn notes get call from lab patient hemoglobin level is 6.7, notified hospitalist, and get order one unit of blood transfusion. order taken and carried out, call family for consent form blood transfusion. will follow up.
[2021-01-17 08:12] LABS: HEMATOCRIT 20 % (39-51); HEMOGLOBIN 6.7 g/dL (13.5-17.5); RED BLOOD CELL COUNT(AUTO) 1.88 MIL/uL (4.5-6.0)
[2021-01-17] MEDS: RIFAXIMIN 550 MG TABLET PO SCH ×2 (08:50→09:00)
[2021-01-17] MEDS: SPIRONOLACTONE 25 MG TABLET PO SCH ×2 (08:51→09:00)
[2021-01-17] MEDS: PANTOPRAZOLE 40 MG TABLET.DR PO SCH ×3 (08:51→20:26)
[2021-01-17] MEDS: MIDODRINE HCL (5MG) 5 MG TABLET PO SCH ×4 (08:51→16:19)
[2021-01-17] MEDS: Z GUARD REMEDY 2 OZ OINT TP SCH (08:52)
[2021-01-17] MEDS ORDERED: LACTULOSE 10 G/15 ML UDC (PYXIS) PO PRN (09:00)
[2021-01-17] MEDS: FUROSEMIDE 40 MG/4 ML VIAL IV SCH ×2 (09:00→16:19)
--- NOTE | 2021-01-17 09:06 | NUR ---
rn notes due medication unable to administer, patient confused, unable to respond self, aspiration precaution. patient total care.
[2021-01-17 10:04] LABS: ALBUMIN 1.9 g/dL (3.4-5.0); BILIRUBIN,DIRECT 7.2 mg/dL (0.0-0.2); BILIRUBIN,TOTAL 13.1 mg/dL (0.2-1.0); CALCIUM, SERUM 8.5 mg/dL (8.5-10.1); CREATININE 5.7 mg/dL (0.6-1.3); MAGNESIUM 2.4 mg/dL (1.8-2.4); PHOSPHORUS 6.5 mg/dL (2.5-4.9); POTASSIUM 4.5 mmol/L (3.5-5.1); TOTAL PROTEIN, SERUM 5.7 g/dL (6.4-8.2)
--- NOTE | 2021-01-17 11:50 | NUR ---
RN NOTES SEEN PATIENT VIA PAIN MANAGEMENT MD, AND D/C ALL PAIN MEDICATION.
[2021-01-17] MEDS ORDERED: oxyCODONE IR immediate release 5 MG PO PRN ×2 (12:00)
[2021-01-17] MEDS ORDERED: LACTULOSE UDC 200 G in SODIUM CHLORIDE IRRIG SOLUTION 400 ML IR ONE (12:30)
[2021-01-17 13:51] LABS: BAND % (MANUAL) 1 % (0.0-5.0); LYMPHOCYTES % (MANUAL) 9 % (16-48); MONOCYTES % (MANUAL) 6 % (0-11.0); NEUTROPHILS % (MANUAL) 84 (42-76)
--- NOTE | 2021-01-17 15:40 | NUR ---
rn notes started one units of blood transfusion at this time 60ml /hr on left UA midline intact, bp-105/51, p-88, r-20, t-97.5, o2-99 room air. patient on pain at this time generalized 6/10 per patient request, no acute respiratory distress. call light within to reach. co -sign with co worker wai DAWSON.will follow up.
[2021-01-17] MEDS: LACTULOSE 10 G/15 ML UDC (PYXIS) PO SCH ×2 (16:00→21:17)
--- NOTE | 2021-01-17 16:00 | NUR ---
RN NOTES PATIENT HAS NO ACUTE RESPIRATORY DISTRESS, T97.7F, P-91, R-20, BP 106/67, O2-98 ROOM AIR.. STILL COMPLAINING OF GENERALIZED PAIN 6/10 PER PAIN SCALE. INCREASE BLOOD INFUSION ON 120 ML/HR WILL FOLLOW UP.
--- NOTE | 2021-01-17 16:19 | NUR ---
RN NOTES ADMINISTERED OXY IR 5 MG PO PRN FOR GENERALIZED PAIN 11/08 PER PATIENT REQUEST. BP 107.61, P-89.
--- NOTE | 2021-01-17 19:21 | NUR ---
rn notes patient blood transfusion finished at this time. still complaining of pain, vss, endorsed oncoming nurse follow plan of care.
--- NOTE | 2021-01-17 19:45 | NUR ---
TELE OPENING NOTE PATIENT LAYING IN BED, ALERT/ORIENTED TO NAME ONLY, PATIENT YELLING IN PAIN. PATIENT STABLE ON RA, NO S/S OF DISTRESS OR SOB NOTED, BREATHING EVEN AND UNLABORED. EVA MIDLINE INTACT AND SALINE LOCKED, RIGHT CHEST HD CATH INTACT. LEFT SOSA DRESSING CLEAN, DRY AND INTACT. PATIENT ON EXTERNAL SALES PORTER. SAFETY MEASURES IN PLACE: CALL LIGHT WITHIN REACH, BED LOCKED IN LOW POSITION, SIDE RAILS UP X 3, BED ALARM ON. WILL CONTINUE TO MONITOR PATIENT
--- NOTE | 2021-01-17 20:21 | NUR ---
MULTI DISCIPLINED LANGUAGE ANALYST NOTE PATIENT CONTINUOUSLY YELLING OUT IN PAIN, REPORTING 7/10 GENERALIZED PAIN. BP: 117/66, HR: 91, SPO2: 99% ON RA. SCHEDULED OXY IR 10 MG PO GIVEN ORDERED. WILL CONTINUE TO MONITOR PATIENT
[2021-01-18] VITALS: BP 111/62
[2021-01-18] MEDS ORDERED: HALOPERIDOL LACTATE INJ 5 MG/ML VIAL IM PRN (00:30)
[2021-01-18] MEDS ORDERED: diphenhydrAMINE HCL 50 MG/ML VIAL IV ONE (00:30)
--- NOTE | 2021-01-18 00:30 | NUR ---
DATA SUPPORT ANALYST NOTE PATIENT VERY ANXIOUS, RESTLESS AND YELLING OUT FOR NURSE FREQUENTLY BUT WHEN ASKED WHAT PT NEEDS HELP WITH THERE IS NO RESPONSE AND PATIENT CONTINUES YELLING FOR HELP. CONTACTED DR. AMEZQUITA WITH NEW ORDERS FOR ONE TIME DOSE OF BENADRYL 25 MG IV, AND HALDOL 5 MG IM Q8H PRN. ORDERS READBACK AND CONFIRMED, ORDERS CARRIED OUT. WILL CONTINUE TO MONITOR PATIENT
[2021-01-18] MEDS: LACTULOSE 10 G/15 ML UDC (PYXIS) PO SCH ×4 (03:43→21:17)
[2021-01-18 04:00] VITALS: BP 109/61
[2021-01-18] MEDS: oxyCODONE IR immediate release 5 MG PO SCH ×3 (04:29→21:00)
[2021-01-18 07:11] LABS: ALBUMIN 1.9 g/dL (3.4-5.0); BILIRUBIN,DIRECT 8.7 mg/dL (0.0-0.2); BILIRUBIN,TOTAL 15.2 mg/dL (0.2-1.0); CALCIUM, SERUM 8.7 mg/dL (8.5-10.1); CREATININE 6.3 mg/dL (0.6-1.3); MAGNESIUM 2.6 mg/dL (1.8-2.4); PHOSPHORUS 6.8 mg/dL (2.5-4.9); POTASSIUM 4.5 mmol/L (3.5-5.1); TOTAL PROTEIN, SERUM 6.3 g/dL (6.4-8.2)
--- NOTE | 2021-01-18 07:31 | NUR ---
COMMUNICATIONS TECHNICIAN CLOSING NOTES PATIENT SLEEPING IN BED, PT APPEARS COMFORTABLE, NO DISTRESS NOTED. PT STABLE ON RA, NO S/S OF DISTRESS OR SOB NOTED, BREATHING EVEN AND UNLABORED. PATIENT WAS VERY CONFUSED THROUGHOUT SHIFT. PATIENT ON CARDIAC MONITORING READING SR. EVA MIDLINE INTACT AND SALINE LOCKED, RIGHT CHEST HD CATH INTACT.MEDICATIONS GIVEN ORDER, PT NEEDS MET THROUGHOUT SHIFT. SAFETY MEASURES IN PLACE: CALL LIGHT WITHIN REACH, BED LOCKED IN LOW POSITION, SIDE RAILS UP X 3, BED ALARM ON. ENDORSED TO DAY SHIFT NURSE FOR CONTINUITY OF CARE
--- NOTE | 2021-01-18 07:39 | NUR ---
RAIL CAR OPERATOR NOTE PATIENT IN BED ALERT WITH SOME CONFUSION, ON TELE MONITOR SR HR 93, RT CHEST WALL WITH HD CATH IN PLACE EVA MID LINE IN PLACE , BED IN LOWEST AND LOCKED POSITION.BOTH LEGS IS SWELLING KEEP ELEVATED AT ALL TIME, BED IN LOWEST AND LOCKED POSITION, WILL MONITOR , Addendum: 01/18/21 at 0809 by ROS MORAN RN FED BY EGG TRAYER ATE 50%
[2021-01-18 07:55] LABS: BASOPHILS % (AUTO) 0.3 % (0.0-2.0); EOSINOPHILS % (AUTO) 0.4 % (0.0-6.0); HEMATOCRIT 24 % (39-51); HEMOGLOBIN 8.2 g/dL (13.5-17.5); LYMPHOCYTES # (AUTO) 1.3 K/uL (0.8-4.8); LYMPHOCYTES % (AUTO) 9.6 % (20.0-44.0); MEAN CORPUSCULAR HGB CONC 34 g/dl (31.0-36.0); MEAN CORPUSCULAR VOLUME 98 fL (80-96); MONOCYTES # (AUTO) 1.9 K/uL (0.1-1.30); MONOCYTES % (AUTO) 14.2 % (2.0-12.0); NEUTROPHILS % (AUTO) 75.5 % (43.0-81.0); PLATELET COUNT (AUTO) 116 K/uL (150-450); RED BLOOD CELL COUNT(AUTO) 2.42 MIL/uL (4.5-6.0); WHITE BLOOD COUNT (AUTO) 13.2 K/uL (4.3-11.0)
[2021-01-18 08:00] VITALS: BP 110/63
[2021-01-18] MEDS: FUROSEMIDE 40 MG/4 ML VIAL IV SCH ×2 (09:31→16:51)
[2021-01-18] MEDS: SPIRONOLACTONE 25 MG TABLET PO SCH (09:31)
[2021-01-18] MEDS: RIFAXIMIN 550 MG TABLET PO SCH (09:31)
[2021-01-18] MEDS: MIDODRINE HCL (5MG) 5 MG TABLET PO SCH ×3 (09:32→16:52)
[2021-01-18] MEDS: PANTOPRAZOLE 40 MG TABLET.DR PO SCH ×2 (09:32→21:17)
[2021-01-18] MEDS: SEVELAMER CARBONATE 800 MG TABLET PO SCH ×3 (09:33→17:22)
[2021-01-18] MEDS: Z GUARD REMEDY 2 OZ OINT TP SCH (09:33)
--- NOTE | 2021-01-18 11:00 | NUR ---
CHAINSTITCH TUNNEL ELASTIC OPERATOR NOTE SPOKE WITH MARIPOSA LINO RN CHEF GERMAN UPDATED PATIENT CONDITION
[2021-01-18 12:23] VITALS: BP 98/59
--- NOTE | 2021-01-18 12:47 | NUR ---
CARE PROCESS MANAGER NOTE HD STARTED ORDERED
--- NOTE | 2021-01-18 15:31 | NUR ---
PRINCIPAL SOLUTIONS ARCHITECT NOTE STILL ON HD AT THIS TIME, ALL NEEDS ATTENDED
[2021-01-18 16:00] VITALS: BP 94/52
--- NOTE | 2021-01-18 17:25 | NUR ---
SEXER NOTE HD COMPLETED REMOVED 500 ML OF FLUIDS BP 85/53
--- NOTE | 2021-01-18 18:40 | NUR ---
MAINTAINABILITY ENGINEER NOTE ALL NEEDS ATTENDED ATE 25% OF DIET M ON TELE MONITOR SR , LUAMID LINE IN PLACE AND FLUSHED WELL ,WILL CONT TO MONITOR CLOSELY
--- NOTE | 2021-01-18 19:30 | NUR ---
RN NOTE RECEIVED PATIENT IN BED. A/OX1, NOT AROUSABLE BY NAME, STERNAL RUB AND PATIENT BEGAN TO SPEAK. PATIENT IS ONLY STATING 2 WORDS, NOT COMPLETE SENTENCES. NOT ANSWERING QUESTIONS. NURSE FROM PREIVIOUS SHIFT ALSO STATED PATIENT WAS ONLY SAYING "HELP" MULTIPKE TIMES BUT NEVER CLARIFIED WHAT HE NEEDED HELP WITH. TOLERATING ROOM AIR. RESPIRATIONS ARE EVEN AND UNLABORED. NO S/S SOB NOTED. NO C/O PAIN AT THIS TIME. TELE MONITOR READS SINUS RHTYHM HR 65. IN NO APPARENT DISTRESS. IV ACCESS IN EVA MIDLINE PATENT AND SALINE LOCKED. RIGHT CHEST HD CATH PRESENT. BED IS LOW AND LOCKED, HOB ELEVATED IN HIGH FOWLERS, SIDE RIALS UP X2, [place] LIGHT WITHIN REACH. WILL CONTINUE TO MONITOR THROUGHOUT SHIFT.
[2021-01-18 20:00] VITALS: BP 103/70
[2021-01-19] VITALS: BP 100/59
[2021-01-19] MEDS: LACTULOSE 10 G/15 ML UDC (PYXIS) PO SCH ×4 (02:35→20:57)
[2021-01-19 04:00] VITALS: BP 100/55
[2021-01-19] MEDS: oxyCODONE IR immediate release 5 MG PO SCH ×3 (05:00→21:01)
[2021-01-19 06:36] LABS: BASOPHILS % (AUTO) 0.3 % (0.0-2.0); EOSINOPHILS % (AUTO) 0.4 % (0.0-6.0); HEMATOCRIT 23 % (39-51); HEMOGLOBIN 7.9 g/dL (13.5-17.5); LYMPHOCYTES # (AUTO) 1.1 K/uL (0.8-4.8); MEAN CORPUSCULAR HGB CONC 34 g/dl (31.0-36.0); MEAN CORPUSCULAR VOLUME 100 fL (80-96); MONOCYTES # (AUTO) 1.5 K/uL (0.1-1.30); MONOCYTES % (AUTO) 12.3 % (2.0-12.0); NEUTROPHILS # (AUTO) 9.5 K/uL (1.8-8.9); PLATELET COUNT (AUTO) 90 K/uL (150-450); RED BLOOD CELL COUNT(AUTO) 2.34 MIL/uL (4.5-6.0); WHITE BLOOD COUNT (AUTO) 12.2 K/uL (4.3-11.0)
[2021-01-19 06:44] LABS: CALCIUM, SERUM 8.6 mg/dL (8.5-10.1); CREATININE 5.4 mg/dL (0.6-1.3); MAGNESIUM 2.4 mg/dL (1.8-2.4); PHOSPHORUS 5.9 mg/dL (2.5-4.9)
--- NOTE | 2021-01-19 06:47 | NUR ---
RN NOTE PATIENT RESTING IN BED. A/OX1. PATIENT WAKES UP TO NAME. REMAINS TOLERATING ROOM AIR. NO RESP DISTRESS. NO C/O PAIN THROUGHOUT SHIFT. TELE READS SINUS RHYTHM. NO DISTRESS. IV IN EVA MIDLINE . RIGHT CHEST HD CATH MAINTAINED. BED REMAINS LOW AND LOCKED, HOB ELEVATED IN HIGH FOWLERS, SIDE RIALS UP X2, CALL LIGHT WITHIN REACH. WILL ENDORSE TO ONCOMING SHIFT.
--- NOTE | 2021-01-19 07:30 | NUR ---
RN NOTE PT FOUND IN SEMI FOWLERS POSITION DISPLAYING NO S/S OF ACUTE DISTRESS, FLACC = 0 AND BREATHING IS EVEN AND UNLABORED ON RA. PT CURRENTLY A&OX1 AND HAVING DIFFICULTY MAKING NEEDS KNOWN. PT ON MONITOR, SHOWING SR. L UA MIDLINE PATIENT AND INTACT. R CHEST WALL HD CATH CLEAN AND INTACT. SAFETY MEASURES IN PLACE, BED LOCKED AND IN LOWEST POSITION, SIDE RAILS UPX2, CALL LIGHT WITHIN REACH, BED ALARM ARMED. RN WILL MONITOR AND TREAT THROUGHOUT SHIFT.
[2021-01-19 08:00] VITALS: BP 110/99
[2021-01-19] MEDS: SPIRONOLACTONE 25 MG TABLET PO SCH (08:18)
[2021-01-19] MEDS: SEVELAMER CARBONATE 800 MG TABLET PO SCH ×3 (08:18→18:24)
[2021-01-19] MEDS: RIFAXIMIN 550 MG TABLET PO SCH (08:18)
[2021-01-19] MEDS: PANTOPRAZOLE 40 MG TABLET.DR PO SCH ×2 (08:18→20:57)
[2021-01-19] MEDS: FUROSEMIDE 40 MG/4 ML VIAL IV SCH ×2 (08:18→18:24)
[2021-01-19] MEDS: MIDODRINE HCL (5MG) 5 MG TABLET PO SCH ×3 (08:19→17:00)
[2021-01-19] MEDS: Z GUARD REMEDY 2 OZ OINT TP SCH (08:22)
--- NOTE | 2021-01-19 09:53 | NUR ---
WOUND CARE CONSULT: PT SEEN FOR SKIN ASSESSMENT AND NOTED TO HAVE HUGE ABDOMEN, JAUNDICED SKIN WITH GENERALIZED WEEPING EDEMA, SACRAL SCARRING WITH RASH AND INCONTINENCE ASSOCIATED SKIN DAMAGE OVER PREVIOUS SACRAL SCAR WELL RASH TO PERINEUM AND GROIN FOLDS. PT MOANING AND SAYING " I WILL HIT YOU". RECOMMENDATIONS MADE FOR SKIN PROTECTION. DISCUSSED WITH NURSING STAFF. DPM ON CASE FOR LOWER EXTREMITIES. ISOFLEX LOW AIRLOSS BED TO BE PLACED. MD IN AGREEMENT WITH PLAN OF CARE.
[2021-01-19 12:00] VITALS: BP 110/99
[2021-01-19 16:00] VITALS: BP 88/62
[2021-01-19] MEDS: CLOTRIMAZOLE 1% 15 GM TUBE TP SCH (17:00)
--- NOTE | 2021-01-19 19:25 | NUR ---
RN NOTES PT FOUND IN BED DISPLAYING NO S/S OF ACUTE DISTRESS, FLACC = 0 AND BREATHING IS EVEN AND UNLABORED ON RA. PT MENTAL STATUS HAS REGRESSED TOWARDS THE END OF THE DAY, WHILE PT WAS ABLE TO MAKE BASINC NEEDS KNOWN IN AM, IN AFTERNOON PT WAS NOT ABLE TO FOLLOW COMMANDS SAFE EATING PUDDING. PT CONTINUES TO BE DISTENDED AND JAUNDICED. SBAR AND REPORT GIVEN TO ICU NURSE RN. ALL QUESTIONS ANSWERED. PT ENDORSED IN STABLE CONDITION FOR LOKESH.
[2021-01-19 20:00] VITALS: BP 104/56
--- NOTE | 2021-01-19 20:00 | NUR ---
RN NOTE RECEIVED PATIENT IN BED. A/OX1, AWAKE TO NAME. TOLERATING ROOM AIR. RESPIRATIONS ARE EVEN AND UNLABORED. NO S/S SOB NOTED. NO C/O PAIN AT THIS TIME. IN NO APPARENT DISTRESS. IV ACCESS IN EVA MIDLINE PATENT AND SALINE LOCKED. RIGHT CHEST HD CATH PRESENT. BED IS LOW AND LOCKED, HOB ELEVATED IN HIGH FOWLERS, SIDE RIALS UP X2, CALL LIGHT WITHIN REACH. WILL CONTINUE TO MONITOR THROUGHOUT SHIFT.
[2021-01-20] VITALS: BP 109/59
[2021-01-20] MEDS: LACTULOSE 10 G/15 ML UDC (PYXIS) PO SCH ×6 (03:00→23:24)
--- NOTE | 2021-01-20 03:52 | NUR ---
RN NOTE COULD NOT GIVE LACTULOSE D/T PATIENT IS TOO LETHARGIC.
[2021-01-20 04:00] VITALS: BP 99/54
[2021-01-20] MEDS: oxyCODONE IR immediate release 5 MG PO SCH ×3 (05:00→21:00)
--- NOTE | 2021-01-20 06:20 | NUR ---
RN NOTE PATIENT RESTING IN BED. VERY LETHARGIC. HARD STERNAL RUB. TOLERATING ROOM AIR. NO RESP DISTRESS. DID NOT ADMIN 0500 OXY ir D/T PATIENT VERY LETHARGIC. IV IN EVA MIDLINE. RIGHT CHEST HD CATH MAINTAINED. BED REMAINS LOW AND LOCKED, HOB ELEVATED IN HIGH FOWLERS, SIDE RIALS UP X2, CALL LIGHT WITHIN REACH. WILL ENDORSE TO ONCOMING SHIFT.
[2021-01-20 06:59] LABS: CALCIUM, SERUM 9.2 mg/dL (8.5-10.1); CREATININE 5.9 mg/dL (0.6-1.3); MAGNESIUM 2.6 mg/dL (1.8-2.4); PHOSPHORUS 6.8 mg/dL (2.5-4.9); POTASSIUM 4.3 mmol/L (3.5-5.1)
--- NOTE | 2021-01-20 07:30 | NUR ---
RN NOTES PT FOUND IN BED DISPLAYING NO S/S OF ACUTE DISTRESS, FLACC = 0 AND BREATHING IS EVEN AND UNLABORED ON RA. PT IS A&OX0 UNRESPONSIVE TO STIMULUS SAVE A STERNAL RUB PRODUCING A FACIAL GRIMACE. ABDOMEN IS DISTENDED AND SKIN/SCLERA IS JAUNDICED. L UA MIDLINE IS PATIENT AND INTACT. RN WILL MONITOR AND TREAT THROUGHOUT SHIFT.
[2021-01-20 07:41] LABS: BASOPHILS % (AUTO) 0.2 % (0.0-2.0); EOSINOPHILS % (AUTO) 0.2 % (0.0-6.0); HEMATOCRIT 23 % (39-51); HEMOGLOBIN 7.8 g/dL (13.5-17.5); LYMPHOCYTES # (AUTO) 0.8 K/uL (0.8-4.8); LYMPHOCYTES % (AUTO) 6.1 % (20.0-44.0); MEAN CORPUSCULAR HGB CONC 34 g/dl (31.0-36.0); MEAN CORPUSCULAR VOLUME 101 fL (80-96); MONOCYTES # (AUTO) 1.5 K/uL (0.1-1.30); MONOCYTES % (AUTO) 11.6 % (2.0-12.0); NEUTROPHILS # (AUTO) 10.2 K/uL (1.8-8.9); NEUTROPHILS % (AUTO) 81.9 % (43.0-81.0); PLATELET COUNT (AUTO) 105 K/uL (150-450); RED BLOOD CELL COUNT(AUTO) 2.28 MIL/uL (4.5-6.0); WHITE BLOOD COUNT (AUTO) 12.5 K/uL (4.3-11.0)
[2021-01-20 08:00] VITALS: BP 97/66
[2021-01-20] MEDS: SEVELAMER CARBONATE 800 MG TABLET PO SCH ×3 (08:00→18:00)
[2021-01-20] MEDS: SPIRONOLACTONE 25 MG TABLET PO SCH (08:19)
[2021-01-20] MEDS: MIDODRINE HCL (5MG) 5 MG TABLET PO SCH ×3 (08:19→17:00)
[2021-01-20] MEDS: PANTOPRAZOLE 40 MG TABLET.DR PO SCH ×2 (08:20→21:00)
[2021-01-20] MEDS: RIFAXIMIN 550 MG TABLET PO SCH (08:20)
--- NOTE | 2021-01-20 08:20 | NUR ---
RN NOTE RN ATTEMPTED TO FEED PT SOME PUDDING. PT WAS NON RESPONSIVE AND ACCEPTED NO FOOD. ALL PO MEDICATIONS HELD AND PHYSICIAN INFORMED.
[2021-01-20] MEDS: Z GUARD REMEDY 2 OZ OINT TP SCH (08:58)
[2021-01-20] MEDS: CLOTRIMAZOLE 1% 15 GM TUBE TP SCH ×2 (08:58→17:20)
[2021-01-20] MEDS: FUROSEMIDE 40 MG/4 ML VIAL IV SCH ×2 (08:58→17:20)
--- NOTE | 2021-01-20 11:00 | NUR ---
RN NOTE HD STARTED
[2021-01-20] MEDS ORDERED: ALBUMIN 25% 25 GM in PREMIX 1 EA IV PRN (12:30)
--- NOTE | 2021-01-20 13:20 | NUR ---
RN NOTE HD STOPPED. PT'S BP IS TOO LOW TO CONTINUE. NO FLUID REMOVED
[2021-01-20 16:00] VITALS: BP 95/53
--- NOTE | 2021-01-20 19:20 | NUR ---
RN NOTES PT FOUND IN BED DISPLAYING NO S/S OF ACUTE DISTRESS, FLACC = 0 AND BREATHING IS EVEN AND UNLABORED ON RA. PT IS A&OX0 UNRESPONSIVE TO STIMULUS SAVE A STERNAL RUB PRODUCING A FACIAL GRIMACE. ABDOMEN IS DISTENDED AND SKIN/SCLERA IS JAUNDICED. L UA MIDLINE IS PATIENT AND INTACT. NO CHANGE IN CONDITION THROUGHOUT SHIFT IN COGNITIVE STATUS. SBAR AND REPORT GIVEN TO ASSET MANAGER RN. PT ENDORSED IN STABLE CONDITION FOR LOKESH.
--- NOTE | 2021-01-20 19:44 | NUR ---
BIOMETRICS TECHNICIAN OPENING RECEIVED PATIENT IN BED WITH EYES CLOSED, BREATHING, NON-VERBAL. DECLINING STATE. PATIENT VERY JAUNDICED. ENDORSED TO ME THAT PATIENT IS HOSPICE NOW, FAMILY ON BOARD AND AWARE OF PATIENT DECLINING STATE. WILL CONTINUE TO MONITOR PATIENT.
[2021-01-20 20:00] VITALS: BP 94/60
--- NOTE | 2021-01-20 21:07 | NUR ---
ms mobley note patient unable to take medication po due to declining state. non-administered scheduled 2100 medications. Addendum: 01/20/21 at 2332 by HOME ZHAO RN DISREGARD THIS NOTE PATIENT WOKE UP AND WAS ABLE TO GIVE LACTULOSE LATE. AWAKE AND ALERT, REPEATING WORDS. PATIENT ABLE TO SWALLOW LACTULOSE FINE AND WATER. WILL CONTINUE TO MONITOR PATIENT.
[2021-01-21] VITALS: BP 96/54
--- NOTE | 2021-01-21 03:13 | NUR ---
patient able to make needs known again. will continue to monitor.
[2021-01-21] MEDS: LACTULOSE 10 G/15 ML UDC (PYXIS) PO SCH ×4 (03:49→20:33)
[2021-01-21 04:00] VITALS: BP 96/54
[2021-01-21] MEDS: oxyCODONE IR immediate release 5 MG PO SCH ×3 (05:00→20:33)
[2021-01-21 06:55] LABS: BASOPHILS % (AUTO) 0.2 % (0.0-2.0); EOSINOPHILS % (AUTO) 0.1 % (0.0-6.0); HEMATOCRIT 21 % (39-51); HEMOGLOBIN 7.4 g/dL (13.5-17.5); LYMPHOCYTES # (AUTO) 0.8 K/uL (0.8-4.8); LYMPHOCYTES % (AUTO) 4.6 % (20.0-44.0); MEAN CORPUSCULAR HGB CONC 34 g/dl (31.0-36.0); MEAN CORPUSCULAR VOLUME 102 fL (80-96); MONOCYTES # (AUTO) 1.4 K/uL (0.1-1.30); MONOCYTES % (AUTO) 8.1 % (2.0-12.0); NEUTROPHILS # (AUTO) 14.8 K/uL (1.8-8.9); RED BLOOD CELL COUNT(AUTO) 2.11 MIL/uL (4.5-6.0); WHITE BLOOD COUNT (AUTO) 16.9 K/uL (4.3-11.0)
[2021-01-21 07:26] LABS: ALBUMIN 1.7 g/dL (3.4-5.0); BILIRUBIN,TOTAL 13.2 mg/dL (0.2-1.0); CALCIUM, SERUM 9.1 mg/dL (8.5-10.1); CREATININE 5.7 mg/dL (0.6-1.3); MAGNESIUM 2.4 mg/dL (1.8-2.4); PHOSPHORUS 6.8 mg/dL (2.5-4.9); POTASSIUM 4.2 mmol/L (3.5-5.1); TOTAL PROTEIN, SERUM 5.8 g/dL (6.4-8.2)
--- NOTE | 2021-01-21 07:49 | NUR ---
dynamite packing machine operator closing note Patient a/ox1. Able to make needs known again. No s/s of apparent distress, started in 2lpm of oxygen via NC saturating 100%. No c/o pain been holding Oxy IR and patient been doing good without it. Tele monitor reading Sinus rhythm. No IV running at this time. All needs attended. Lactulose doses givenable to tolerate liquids. Safety kept in place the whole shift. Will endorse care to morning shift RN.
--- NOTE | 2021-01-21 07:50 | NUR ---
RN NOTES AT 0750 SPOKE TO LAB PT BG 46, I RETOOK MANUAL BG AND GOT 32. PROTOCOL INITIATED. ORDERED D5 AND GAVE BOLUS. CHARGE AND PROVIDER NOTIFIED.
[2021-01-21 08:00] VITALS: BP 89/57
[2021-01-21] MEDS ORDERED: DEXTROSE 50%-WATER 50 ML DISP.SYRIN IVP ONE (08:00)
--- NOTE | 2021-01-21 08:26 | NUR ---
RN NOTES REASSESSED D5, BG NOW 105. WILL CONTINUE TO MONITOR
[2021-01-21] MEDS: RIFAXIMIN 550 MG TABLET PO SCH (09:00)
[2021-01-21] MEDS: SEVELAMER CARBONATE 800 MG TABLET PO SCH ×3 (09:00→18:30)
[2021-01-21] MEDS: CLOTRIMAZOLE 1% 15 GM TUBE TP SCH ×2 (09:00→17:07)
[2021-01-21] MEDS: PANTOPRAZOLE 40 MG TABLET.DR PO SCH ×2 (09:00→20:33)
[2021-01-21] MEDS: SPIRONOLACTONE 25 MG TABLET PO SCH (09:02)
[2021-01-21] MEDS: MIDODRINE HCL (5MG) 5 MG TABLET PO SCH ×3 (09:03→17:09)
[2021-01-21] MEDS: Z GUARD REMEDY 2 OZ OINT TP SCH (09:29)
[2021-01-21] MEDS: FUROSEMIDE 40 MG/4 ML VIAL IV SCH ×2 (09:31→17:09)
[2021-01-21 11:11] LABS: BAND % (MANUAL) 1 % (0.0-5.0); LYMPHOCYTES % (MANUAL) 3 % (16-48); MONOCYTES % (MANUAL) 6 % (0-11.0); NEUTROPHILS % (MANUAL) 90 (42-76)
[2021-01-21 11:15] LABS: PLATELET COUNT (AUTO) 78 K/uL (150-450)
[2021-01-21 12:00] VITALS: BP 98/44
--- NOTE | 2021-01-21 13:29 | NUR ---
RN NOTES PER PROVIDER HOLD PAIN/OXY MEDS
[2021-01-21 16:00] VITALS: BP 102/50
--- NOTE | 2021-01-21 18:43 | NUR ---
RN CLOSING NOTES PT WILL BE DISCHARGED 01/21 AROUND 2129. PT STABLE AND A/O X2. SPOKE WITH FAMILY THAT PT WILL BE SENT HOME ON HOSPICE CARE. WILL CONTINUE TO MONITOR
--- NOTE | 2021-01-21 19:30 | NUR ---
RN OPENING NOTE RECD PT IN BED, A/O X2, ON ROOM AIR NO S/S OF DISTRESS NOTED. PT 77 NSR ON TELE MONITOR, IV SITE FLUSHED. NEEDS ATTENDED AT THIS TIME. SAFETY MEASURES IN PLACE. HOB ELEVATED SIDE RAILS UP X2 BED LOCKED IN LOWEST POSITION, BED ALARM ON. CALL LIGHT WITHIN REACH. WILL CONT TO MONITOR. PT IS TO BE DISCHARGED THIS EVENING
[2021-01-21 20:00] VITALS: BP 99/56
--- NOTE | 2021-01-21 22:09 | NUR ---
RN NOTE: DISCHARGE PT TAKEN BY EMT; AND DARSHAN FROM [facility] @3118 PT AFEBRILE, ON ROOM AIR. MIDLINE REMOVED. APPLIED PRESSURE, ARM ELEVATED FOR 1+ MIN, NO S/S OF BLEEDING, GAUZED PLACED AND SECURED WITH TAPE. HD ACCESS RIGHT CHEST, INTACT. ID BAND REMOVED. BELONGINGS WITH PT, CELL PHONE AND CARPENTER'S ASSISTANT AND DENTURES NOTED. DISCHARGE PAPERWORK SENT WITH PT. PT LEFT IN STABLE CONDITION.
== END 2021-01-21 21:35 | disposition hospice, home (50) | DRG 280 ==
LOC: ER 23:07 → UNDOADMIN 01-14 00:31 → TELE1 01-14 00:31 → TRANSITION 01-14 01:16 → TELE-TD 01-14 04:45 → TELE1 01-14 05:54 → MEDSG1 01-19 09:20 → TELE1 01-21 07:55
PROVIDERS: ADMIT Internal Medicine
PROC: 30233N1 Transfusion of Nonautologous Red Blood Cells into Peripheral Vein, Percutaneous Approach (ICD-10-PCS; 2021-01-14)
PROC: 30233K1 Transfusion of Nonautologous Frozen Plasma into Peripheral Vein, Percutaneous Approach (ICD-10-PCS; 2021-01-14)
PROC: 0W9G3ZZ Drainage of Peritoneal Cavity, Percutaneous Approach (ICD-10-PCS; principal; 2021-01-15)
DX: K70.31 Alcoholic cirrhosis of liver with ascites (principal); R57.1 Hypovolemic shock; K76.7 Hepatorenal syndrome; E11.649 Type 2 diabetes mellitus with hypoglycemia without coma; D69.6 Thrombocytopenia, unspecified; D68.9 Coagulation defect, unspecified; E72.20 Disorder of urea cycle metabolism, unspecified; N17.9 Acute kidney failure, unspecified; N18.6 End stage renal disease; E87.1 Hypo-osmolality and hyponatremia; K72.90 Hepatic failure, unspecified without coma; I13.2 Hypertensive heart and chronic kidney disease with heart failure and with stage 5 chronic kidney disease, or end stage renal disease; E11.22 Type 2 diabetes mellitus with diabetic chronic kidney disease; Z99.2 Dependence on renal dialysis; I25.10 Atherosclerotic heart disease of native coronary artery without angina pectoris; Z20.822 Contact with and (suspected) exposure to COVID-19; B19.20 Unspecified viral hepatitis C without hepatic coma; S80.821A Blister (nonthermal), right lower leg, initial encounter; Z91.15 Patient's noncompliance with renal dialysis; Z79.891 Long term (current) use of opiate analgesic; E87.2 Acidosis; G89.4 Chronic pain syndrome; D53.9 Nutritional anemia, unspecified; I50.9 Heart failure, unspecified; K21.9 Gastro-esophageal reflux disease without esophagitis; Z79.899 Other long term (current) drug therapy; I25.2 Old myocardial infarction; E87.8 Other disorders of electrolyte and fluid balance, not elsewhere classified; Z51.5 Encounter for palliative care; Z66 Do not resuscitate; Z86.2 Personal history of diseases of the blood and blood-forming organs and certain disorders involving the immune mechanism; Z91.14 Patient's other noncompliance with medication regimen; L89.626 Pressure-induced deep tissue damage of left heel; L89.616 Pressure-induced deep tissue damage of right heel; X58.XXXA Exposure to other specified factors, initial encounter; Y92.9 Unspecified place or not applicable
CPT/HCPCS: 36415; 71045-TC; 76942-TC; 80048-TC; 80053-TC; 80076-TC; 82040-TC; 82140-TC; 83605-TC; 83690-TC; 83735-TC; 84100-TC; 85025-TC; 85027-TC; 85610-TC; 86706; 86850-TC; 87040-TC; 87070-TC; 87081-TC; 87340; 89051-TC; 90935-TC; A4216; A4217; A6253; C9803; G0378; J1200; J1940; J2270; J3430; J7030; J7050; P9016; P9017; P9047; U0003